=== PATIENT | male | born 1970 | race African-American/Black ===

== ENCOUNTER 2020-12-24 14:09 | Outpatient (REF) | payer MEDICAID, SELFPAY ==
--- NOTE | ~2020-12-24 | FL_ITS ---
EXAMINATION: Modified BARIUM SWALLOW CLINICAL INFORMATION: Aspiration. Question esophageal dysfunction. COMPARISON: None TECHNIQUE: Routine modified barium swallow was performed on the left RIBS fluoroscopy with patient sitting in a chair and various consistencies of barium given by the speech therapist. FINDINGS: On oral administration thin and thick barium and honey consistency barium there is andie laryngeal penetration or aspiration. There is moderate retention of barium liquids in the valleculae and pyriform sinuses. There are better results following oral administration of barium coated chicken as solid food with no aspiration seen. FLUOROSCOPY TIME: 3.9 minutes DOSE AREA PRODUCT: 3.449 uGy-m2 (microgray-meter squared) FL/FL barium swallow modified IMPRESSION: Andie laryngeal penetration or aspiration following oral administration of thin, thick barium and honey consistency barium. The results were visualized with solid them coated chicken with no aspiration seen.
--- NOTE | 2020-12-24 17:01 | MHC.SLORD ---
Speech Language Pathology Order Status: MBSS completed. Evidence of aspiration on thin liquid, honey thick liquid, and pureed solid. METAL LEAF LAYER called and spoke with RN from [facility] unit where patient resides. Staff confirmed that they had received written MBSS findings from today. Per staff, MD will want patient to work with METAL LEAF LAYER at [facility]. Full MBSS report to be faxed to [phone]. Fax number confirmed by [facility] staff.
--- NOTE | 2020-12-25 17:09 | MHC.SL.IMP ---
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 He was accompanied by a staff member from [facility]. WET AND DRY SUGAR BIN OPERATOR was unable to obtain background information from the patient due to potentially reduced cognition. Background information was derived from previous MD notes. Patient is reportedly on CHOPPED meat (NDD3) and NECTAR THICK liquids at baseline per MD note. He is provided with assistance cutting items as needed. MBSS was ordered to rule in/out aspiration and provide further recommendations. Oral Motor Exam Mouth Occlusion: Normal Tongue Size: Normal Tongue Excursion Description: Incomplete Is patient able to manage secretions?: Yes Food and Liquid Trials: Oral Impairment: Lip Closure: Did not test Oral Impairment: Tongue Control During Bolus Hold: 2=Posterior escape of less than half of bolus Oral Impairment: Bolus Preparation/Mastication: 1=Slow prolonged chewing/mashing with complete re-collection Oral Impairment: Bolus Transport/Lingual Motion: 3=Repetitive/disorganized tongue motion Oral Impairment: Oral Residue: 2=Residue collection on oral structures Oral Impairment:Initiation of Pharyngeal Swallow: 3=Bolus head in pyriforms Pharyngeal Impairment: Soft Palate Elevation: 0=No bolus between soft palate (SP)/pharyngeal wall (PW) Pharyngeal Impairment: Laryngeal Elevation: 1=Partial thyroid cartilage/arytenoids to epiglottic petiole movement Pharyngeal Impairment: Anterior Hyoid Excursion: 1=Partial anterior movement Pharyngeal Impairment: Epiglottic Movement: 2=No inversion Pharyngeal Impairment: Laryngeal Vestibular Closure:: 1=Incomplete: narrow column air/contrast in laryngeal vestibule Pharyngeal Impairment: Pharyngeal Stripping Wave: 2=Absent Pharyngeal Impairment: Pharyngeal Contraction: Did not test Pharyngeal Impairment: Pharyngoesophageal Segment Openin=Partial distention/partial duration: partial obstruction of flow Pharyngeal Impairment: Tongue Base (TB) Retraction: 3=Wide column of contrast/air between TB and posterior PW Pharyngeal Impairment: Pharyngeal Residue: 3=Majority of contrast within or on pharyngeal structures Pharyngeal Impairment: Esophageal Clearance Upright Position: Did not test Impressions and Recommendations Clinical Observations: OBJECTIVE: Time-out: performed at 02:45 Evaluation Start: 02:30; Stop: 02:40 Patient Positioning: Seated 70-90 degrees Viewing Planes: LATERAL ONLY Contrast: MBSImP? Standardized Protocol using commercially prepared, standardized Barium viscosities, including: Varibar? THIN LIQUID (40% w/v, <15 cps) , Varibar? THIN HONEY (40% w/v, <800-1800 cps) [facility] [id number] [facility] Results: Lip closure for intraoral bolus containment could not be assessed due to logistical reasons not related to physiologic impairment. Tongue control during bolus hold resulted in posterior escape of less than half of the bolus. Bolus preparation and mastication resulted in slow, prolonged chewing/mashing but with complete re-collection. Bolus transport/lingual motion was with repetitive/disorganized motion of the tongue. Oral residue was a collection on oral structures. Initiation of the pharyngeal swallow occurred when the bolus head was in the pyriform sinuses. Soft palate elevation resulted in no bolus between the soft palate and the pharyngeal wall. Laryngeal elevation was decreased, with partial superior movement of the thyroid cartilage/partial approximation of the arytenoids to the epiglottic petiole. Anterior hyoid excursion demonstrated partial anterior movement. Epiglottic movement resulted in no inversion. Laryngeal vestibular closure was incomplete, with a narrow column of air/contrast noted within the laryngeal vestibule at the height of the swallow. Pharyngeal stripping wave was absent. Pharyngeal contraction could not be determined due to logistical reasons not related to physiologic impairment. Pharyngoesophageal segment opening demonstrated partial distension/partial duration, with partial obstruction of bolus flow. Tongue base retraction allowed a wide column of contrast or air between the retracted tongue base and the posterior pharyngeal wall. Pharyngeal residue was the majority of contrast within or on pharyngeal structures. Esophageal clearance in the upright position could not be assessed due to logistical reasons not related to physiologic impairment. Oral Impairment Score: 11 (absence of score, component 1) Pharyngeal Impairment Score: 14 (absence of score, component 13) Esophageal Impairment Score: --- (absence of score, component 17) Laryngeal Penetration and Aspiration: Aspiration was observed in today's study. Pureed solid; Honey-thick liquid; Thin liquid entered the airway, passed below the vocal folds, and no effort was made to eject. ASSESSMENT: This exam was conducted by a radiologist and speech-language pathologist and accompanied by garbage person clinician. Patient was seated in chair upright at optimal 90 degree position for lateral view only. Patient fed himself when handed food items. Patient trialed the following liquid and solid consistencies: -5 mL thin liquid barium -cup sip thin liquid barium -teaspoon sip honey thick liquid barium -pureed solid (applesauce mixed with barium paste) -ground solid (chicken salad mixed with barium paste) Patient presents with severe oropharyngeal dysphagia, characterized by impairments in the following components of swallow physiology: ORAL PHASE: -Premature posterior escape of less than 50% of bolus prior to initiation of pharyngeal swallow trigger -Repetitive and disorganized posterior tongue movements -Slow, prolonged mastication -Mild to moderate oral residue -Delayed pharyngeal swallow trigger when bolus head reached pyriforms PHARYNGEAL PHASE: -Partial superior movement of thyroid cartilage/ partial approximation of arytenoids to epiglottic petiole with partial anterior hyoid movement -No epiglottic inversion -Absent pharyngeal stripping wave -Partial distention/ partial duration/ partial obstruction of flow through PES -Reduced tongue base retraction -Significant pharyngeal residue on tongue base and in valleculae and pyriform sinuses Patient took first sip of thin liquid from cup. Noted repetitive posterior movement of tongue, but patient did not propel bolus to initiate pharyngeal swallow. Patient spit bolus back into cup. Patient was given another cup of thin liquid and cued to swallow. Evidence of aspiration after the swallow on residual from pyriform sinus when drinking thin liquid from cup. Evidence of aspiration during the swallow on teaspoon sip of honey thick liquid. Moderate pharyngeal retention in valleculae and pyriforms when drinking liquids. Evidence of aspiration during the swallow with teaspoon bite of applesauce, a pureed solid. No cough. Moderate pharyngeal retention in valleculae and pyriforms with bite of pureed solid. Episodes of aspiration were silent, as patient made no effort to expectorate material from airway. No evidence of aspiration or penetration with ground solid. Note significant retention in vallecular space with ground solid, putting patient at risk for aspiration on residuals. Patient was cued for multiple swallows which reduced but did not clear residue. Patient trialed chin tuck and head turn to right and left sides, which had minimal effect. Patient exhibited difficulty following commands throughout this study. The following compensatory strategies appear to have had a negative impact on swallowing function: Additional Swallow(s) per Bolus increased Aspiration Liquid Intake Recommendation: NPO Liquid Intake Strategies: Dietary Recommendations: NPO Medication Administration: NPO Recommended Treatments: Base of Tongue Exercises Pharyngeal Resistive Exer Compens. Strategy Educat. Vocal Cord Adduction Exer Recommendation for Speech Therapy: Outpatient Speech Therapy Speech Therapy through [facility] Speech [facility] through Rehab Facility Modified Barium Swallow Study - Outpatient Intake Recommendations: Route: NPO/Alternate Route Post-Study Functional Oral Intake Scale (FOIS): 1- No oral intake Evidence of silent aspiration. Safest recommendation would be for NPO status at this time as patient is at high risk of aspiration based on observations made during this study. However, ultimate decision for nutritional intake lies with patient?s care team with consideration of totality of patient. Recommend consult with G.I. and nutrition to provide additional support/assessment of most appropriate means of nutrition for this patient. Patient is recommended weekly speech therapy visits at his nursing facility for dysphagia. Recommend repeat MBSS 8-12 weeks post-treatment. Suggested Referrals: The patient might benefit from a referral to: Gastroenterology Indication for Referral: Evidence of aspiration on this exam with solids and liquids. Nutrition Services Indication for Referral: Evidence of aspiration on this exam with solids and liquids. Therapy Recommendations: Therapy will be initiated Prognosis for Improvement: The prognosis for the patient to meet nutritional needs by mouth is poor based on degree of impairment, stimulability for treatment. Timeline to reassess: 3 months Purchasing And Fiscal Clerk Goals: ? The patient will tolerate the least restrictive diet with a safe/efficient swallow to maintain adequate nutrition and hydration. ? The patient will demonstrate improved swallowing function via repeat clinical evaluation, videoendoscopy/videofluoroscopy and/or patient self-rating scores. ? The patient and/or family will participate in further education for swallowing goals. Short Term Goals: ? Independent Home Exercise - The patient will perform 10 repetitions of the Effortful Swallow, Jesusita Maneuver, Shaker Head Lifts, Cass Maneuver 3 times a day with 100% accuracy and moderate cuing as part of a home exercise program. ? Structured Therapy - The patient will demonstrate 100% accuracy and require moderate cuing in structured swallowing therapy with the WET AND DRY SUGAR BIN OPERATOR using the following exercises/therapy approaches and therapy assisted devices: Effortful Swallow, Jesusita Maneuver, Shaker Head Lifts, Cass Maneuver, . ? Education - The patient, caregiver, nurse will verbalize/demonstrate understanding of the results of this evaluation, the above recommendations, and the swallowing guidelines. Clinician - Supplemental, Miscellaneous Communication: It is important to note MBSS objective studies are snapshots in time and Patient function might vary with factors such as time of day or concomitant medical conditions. For this reason, the final treatment plan for this patient should rest with their medical care team. Additional recommendations should be considered with the totality of the Patient in mind. Thank for the opportunity to participate in the care of this patient. If you have any questions about the content of this report, please contact the [facility] at [facility]. Education: Education regarding findings from today's study and plans for therapy were provided to Patient and family/caregiver through Verbal Instruction, Written Instruction. Understanding was expressed by the Patient and family/caregiver. Insecticide Maker Clinician/Clinical Fellow: Yes: Kelsey Fermin Supervisory Statement: N/A Speech Language Pathologist: Paula Hassan M.A., [facility]-WET AND DRY SUGAR BIN OPERATOR
== END 2020-12-24 14:10 | disposition home or self-care (01) ==
LOC: HO.XRAY 14:09
PROVIDERS: Visit Provider Hospitalist
DX: R13.12 Dysphagia, oropharyngeal phase (principal)
CPT/HCPCS: 74230; 92611

== ENCOUNTER 2021-02-07 17:31 | Emergency (ER) | payer MEDICAID, SELFPAY ==
--- NOTE | ~2021-02-07 | XR_ITS ---
Examination: XR foot LT 2V, XR ankle LT min 3V Indication: pain dorsal aspect, fall Comparison: No pertinent prior studies are currently available for comparison. Technique: 3 views of the right ankle and 3 views of the right foot obtained Findings: Mild diffuse soft tissue swelling about the foot and ankle. Extensive chronic appearing changes are seen with bony sclerosis and ankylosis of many of the midfoot bones. Extensive bony deformities to the first through fifth toes in the fourth and fifth MTP joints. 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 There is a chronic healing fracture through the medial malleolus to distal tibial diaphysis with indistinct fracture line and chronic periosteal reaction in this location. This does not appear to be an acute injury. XR/XR ankle LT min 3V Impression: There are extensive chronic appearing changes as described above. I do not appreciate any acute superimposed fracture or dislocation. The changes likely reflect an underlying neuropathic joint as well as a chronic healing distal tibial fracture
--- NOTE | ~2021-02-07 | XR_ITS ---
Examination: XR foot LT 2V, XR ankle LT min 3V Indication: pain dorsal aspect, fall Comparison: No pertinent prior studies are currently available for comparison. Technique: 3 views of the right ankle and 3 views of the right foot obtained Findings: Mild diffuse soft tissue swelling about the foot and ankle. Extensive chronic appearing changes are seen with bony sclerosis and ankylosis of many of the midfoot bones. Extensive bony deformities to the first through fifth toes in the fourth and fifth MTP joints. 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 There is a chronic healing fracture through the medial malleolus to distal tibial diaphysis with indistinct fracture line and chronic periosteal reaction in this location. This does not appear to be an acute injury. XR/XR foot LT 2V Impression: There are extensive chronic appearing changes as described above. I do not appreciate any acute superimposed fracture or dislocation. The changes likely reflect an underlying neuropathic joint as well as a chronic healing distal tibial fracture
[2021-02-07 17:37] VITALS: BP 124/93; BP 140/90; PULSE 100; PULSE 105; RESP 16; TEMP 36.9; O2SAT 100; O2SAT 99; BMI 27.1
--- NOTE | 2021-02-07 18:28 | ED_ITS ---
HPI - Fall General Chief Complaint: Fall Stated Complaint: FALL TUESDAY W/ L ANKLE FX PER SNF Time Seen by Provider: 02/07/21 17:40 Source: patient and EMS Mode of arrival: EMS Limitations: other (Chronic traumatic brain injury) History of Present Illness HPI Narrative: Patient comes emergency room complaining of left ankle pain. According to [facility], patient has a left ankle fracture. Patient states that on a resident fell on the floor and patient tripped on top of him. According to the staff at [facility], patient had an x-ray done today which showed a fracture. Patient complaining of localized pain. Related Data Allergies Allergy/AdvReac Type Severity Reaction Status Date / Time No Known Allergies Allergy Unverified 12/20/19 19:39 [No Known Allergies*] Review of Systems Review of Systems: Constitutional : No Weight loss, No Fever, No Chills, No Night Sweats, No Fatigue, No Malaise ENT/Mouth : No Hearing loss, No Ear Pain, No Nasal Congestion, No Sinus Pain, No Hoarseness, No sore throat, No Rhinorrhea, No Swallowing Difficulty Eyes: No Eye Pain, No Swelling, No Redness, No Foreign Body, No Discharge, No Vision Changes Cardiovascular : No Chest Pain, No SOB, No Dyspnea on Exertion, No Orthopnea, No Edema, No Palpitations Respiratory : No Cough, No Sputum, No Wheezing, No Smoke Exposure, No Dyspnea Gastrointestinal : No Nausea, No Vomiting, No Diarrhea, No Constipation, No abdominal Pain, No Hematochezia, No Melena Genitourinary : no irregular bleeding, No Dysuria, No Urinary Frequency, No Hematuria, No Urinary Incontinence, No Urgency, No Flank Pain, No Urinary Flow Changes, No Hesitancy Musculoskeletal : Complaining of left ankle pain, No Myalgias, No Joint Swelling Skin : No Skin Lesions, No rash Neuro : No Weakness, No Numbness, No Paresthesias, No Loss of Consciousness, No Dizziness, No Headache Psych : No Anxiety/Panic, No Depression, No SI/HI/AH/VH, No Social Issues, Heme/Lymph: No Bruising, No Bleeding,No Lymphadenopathy Endocrine : No Polyuria, No Polydipsia, No Temperature Intolerance PMFSH Past Medical History Medical History Anoxic brain damage Diabetes Dysphagia Encephalopathy Hyperlipemia Social History Social History Alcohol intake: never Patient Tobacco Use Status: Former Tobacco user Use of substances other than those prescribed or required for medical reasons: No Advance Directives: No Advance Directives Information Provided: No Physical Exam Vital Signs: Vital Signs: Last Vital Signs Temp 98.5 F 02/07/21 17:37 Pulse 103 H 02/07/21 19:08 Resp 20 02/07/21 19:08 BP 155/86 H 02/07/21 19:08 Pulse Ox 97 02/07/21 19:08 Body Mass Index 27.1 Const: Other: Appearance: Alert. Oriented X3. No acute distress. Eyes: Pupils equal, round and reactive to light. ENT: Pharynx normal. Neck: Normal inspection. Neck supple. No lymph nodes noted. No crepitus CVS: Normal heart rate and rhythm. Pulses normal. Normal S1 and S2 Respiratory: No respiratory distress. Breath sounds normal. No Wheezing. No rales Abdomen: Soft and nontender. No rigidity. No distention. good BS x4 Skin: Skin warm and dry. Normal skin color. Normal skin turgor. Extremities: No lower extremity edema. Significant deformities of toes, chronic. Pain to palpation over the ankle Neuro: Oriented X 3. No motor deficit. No sensory deficit. Moving all extermities. No slurred speech. Course Course Course Narrative: I discussed with the patient that he does not have an acute fracture. Seems the patient has an old fracture. Patient states it hurts from his walks, patient was provided with a posterior splint, instructed to follow-up with orthopedics. MDM - Fall Imaging Data Ankle x-ray: Radiologist's impression: Findings: Mild diffuse soft tissue swelling about the foot and ankle. Extensive chronic appearing changes are seen with bony sclerosis and ankylosis of many of the midfoot bones. Extensive bony deformities to the first through fifth toes in the fourth and fifth MTP joints. 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 There is a chronic healing fracture through the medial malleolus to distal tibial diaphysis with indistinct fracture line and chronic periosteal reaction in this location. This does not appear to be an acute injury. XR/XR foot LT 2V Impression: There are extensive chronic appearing changes as described above. I do not appreciate any acute superimposed fracture or dislocation. The changes likely reflect an underlying neuropathic joint as well as a chronic healing distal tibial fracture Discharge Plan Discharge Clinical Impression: Acute foot pain Patient Disposition: Home, Self-Care Instructions: Arthralgia (ED) Additional Instructions: Please follow-up with your primary care physician tomorrow. If you have any worsening or new symptoms, please return to the emergency room or call [phone] Referrals: Olivia Cotton PA-C [Physician Health Safety Specialist] - 2 days
[2021-02-07] MEDS: Acetaminophen 325 MG TABLET 650 MG PO (19:03)
--- NOTE | 2021-02-07 19:07 | PC.NURSE ---
patient medicated for pain per order
[2021-02-07 19:08] VITALS: BP 155/86; PULSE 103; RESP 20; O2SAT 97
--- NOTE | 2021-02-07 20:07 | PC.NURSE ---
report called to [facility]
--- NOTE | 2021-02-07 20:07 | PC.NURSE ---
tech splinting patients lle
[2021-02-07 22:00] VITALS: BP 131/65; PULSE 102; RESP 18; TEMP 36.4; O2SAT 98
--- NOTE | 2021-02-07 22:38 | PC.NURSE ---
patient alert to person/place, lle splint intact, + csm, pt awaiting transport back to [facility]- as previously noted report was called to the facility earlier, vitals stable, pt uses 1 pk of thick it for liquids, will continue to monitor.
== END 2021-02-07 23:58 | disposition home or self-care (01) ==
PROVIDERS: Emergency Provider Emergency Medicine
DX: M25.572 Pain in left ankle and joints of left foot (principal); Z87.891 Personal history of nicotine dependence
CPT/HCPCS: 73610; 73620; 99284

== ENCOUNTER 2021-03-02 15:33 | Outpatient (REF) | payer MEDICAID, SELFPAY ==
--- NOTE | ~2021-03-02 | MR_ITS ---
EXAMINATION: MRI ANKLE WITHOUT CONTRAST, LEFT CLINICAL INFORMATION: Lateral left ankle pain. COMPARISON: Left foot and ankle radiographs dated 02/07/2021. TECHNIQUE: Multisequence MR imaging of the left ankle was obtained without contrast on a high-field strength scanner. FINDINGS: Evaluation limited secondary to patient motion. BONE AND ARTICULAR CARTILAGE: There is a sagittally oriented fracture through the distal tibia which contacts the central aspect of the tibial plafond articular surface. The resultant fracture gap measures up to 0.4 cm in AP dimension. There is prominent adjacent soft tissue edema. The fracture line extends proximally beyond the imaged field of view. There is associated periosteal reaction without significant new bone/callus formation. This has the appearance of an acute/subacute fracture. Tibiotalar articular cartilage thinning with tiny marginal osteophytes. No talar osteochondral lesion. Chronic fusion of the cuneonavicular joints without associated marrow edema. Mild joint space narrowing with small marginal osteophytes at the talonavicular, calcaneocuboid, and tarsometatarsal joints. ACHILLES TENDON: Normal. OTHER TENDONS: Intact. LIGAMENTS: Attenuation of the anterior talofibular ligament as well as abnormal signal within the posterior talofibular ligament and calcaneofibular ligament. Attenuation and abnormal signal of the deltoid ligament. Findings are consistent with remote sprain/partial tears. JOINT FLUID AND SOFT TISSUES: Moderate tibiotalar joint effusion with adjacent soft tissue edema. PLANTAR FASCIA: Normal. SINUS TARSI AND TARSAL TUNNEL: Normal. MR/MR ankle LT wo con IMPRESSION: 1. Acute/subacute fracture of the distal tibia in the sagittal plane which contacts the central aspect of the tibial plafond articular surface. Associated fracture gap measuring up to 0.4 cm in AP dimension. No significant cortical stepoff. Prominent adjacent marrow edema with mild periosteal reaction. The fracture extends proximally beyond the imaged field of view. 2. Mild tibiotalar osteoarthritis. Moderate joint effusion with adjacent soft tissue edema. 3. Chronic fusion of the cuneonavicular joints. Mild degenerative arthritis at the talonavicular, calcaneocuboid, and tarsometatarsal joints. 4. Remote sprains/partial tears of the deltoid, anterior talofibular, posterior talofibular, and calcaneofibular ligaments.
--- NOTE | ~2021-03-02 | XR_ITS ---
EXAMINATION: PRE-MRI SCREENING. CLINICAL INFORMATION: Previous brain surgery. COMPARISON: None TECHNIQUE: Skull to views, chest and abdomen one view each. FINDINGS: Skull: There is a large right frontal craniotomy with neelam holding the craniotomy flap in place. The paranasal sinuses and mastoid air cells are well-aerated. There is no scalp soft tissue abnormality. CHEST: The lungs are well-expanded and clear of acute process. The heart size and perivascular is normal. No gross bony abnormality seen. ABDOMEN: There is moderate stool seen throughout the colon without any significant distention. The small bowel loops are normal caliber. No organomegaly. No radiopaque calculi. No gross bony abnormality. XR/XR pre mri screening IMPRESSION: Right frontal craniotomy with neelam holding the craniotomy flap in place. Unremarkable chest exam. Unremarkable abdomen exam except for moderate constipation.
== END 2021-03-02 15:34 | disposition home or self-care (01) ==
LOC: HO.MRI 15:33
PROVIDERS: Visit Provider Hospitalist
DX: M25.572 Pain in left ankle and joints of left foot (principal)
CPT/HCPCS: 73721

== ENCOUNTER 2021-03-06 07:10 | Outpatient (REF) | payer MEDICAID, SELFPAY ==
--- NOTE | ~2021-03-06 | XR_ITS ---
EXAMINATION: XR ANKLE, LEFT CLINICAL INFORMATION: Pain COMPARISON: Previous x-ray 02/07/2021 and MRI of the ankle for 20 12/22/2020 TECHNIQUE: AP, lateral, and mortise views of the left ankle. FINDINGS: Oblique fracture of the distal tibia is still seen extending to the medial malleolus/medial ankle mortise. There is ossific some surrounding bony callus formation. This does not appear appreciably changed from 02/07/2021 exam. No other fracture is seen. The ankle mortise is otherwise normal. The bones are osteopenic. There are degenerative changes of the midfoot. There are small calcaneal spurs. XR/XR ankle LT min 3V IMPRESSION: No change in the oblique fracture of the left distal tibia extending to the medial ankle mortise.
== END 2021-03-06 07:11 | disposition home or self-care (01) ==
LOC: HO.HOSX 07:10
PROVIDERS: Visit Provider Physician Assistant
DX: S82.872D Displaced pilon fracture of left tibia, subsequent encounter for closed fracture with routine healing (principal); Z99.3 Dependence on wheelchair; X58.XXXD Exposure to other specified factors, subsequent encounter
CPT/HCPCS: 73610; 99202

== ENCOUNTER 2021-04-10 07:32 | Outpatient (REF) | payer MEDICAID, SELFPAY ==
--- NOTE | ~2021-04-10 | XR_ITS ---
EXAMINATION: XR ANKLE, LEFT CLINICAL INFORMATION: Follow-up fracture COMPARISON: Previous x-ray most recent March 2021 TECHNIQUE: AP, lateral, and mortise views of the left ankle. FINDINGS: The fracture of the distal tibia involving the posterior medial distal tibia extending to the medial ankle mortise/superior medial malleolus does not appear appreciably changed. Alignment is unchanged. Fracture line is still seen. There is periosteal reaction along the lateral distal tibial shaft that is unchanged. The bones are osteopenic. Soft tissues are unremarkable. XR/XR ankle LT min 3V IMPRESSION: No change in the distal tibial fracture from March 2021 exam.
== END 2021-04-10 07:33 | disposition home or self-care (01) ==
LOC: HO.HOSX 07:32
PROVIDERS: Visit Provider Physician Assistant
DX: S82.872D Displaced pilon fracture of left tibia, subsequent encounter for closed fracture with routine healing (principal)
CPT/HCPCS: 73610; 99212

== ENCOUNTER 2021-05-26 09:29 | Outpatient (REF) | payer MEDICAID, SELFPAY ==
--- NOTE | ~2021-05-26 | XR_ITS ---
EXAMINATION: XR ANKLE, LEFT CLINICAL INFORMATION: Distal tibial fracture. Follow-up. COMPARISON: Radiographs left ankle 04/10/2021, 03/06/2021 TECHNIQUE: AP, lateral, and mortise views of the left ankle. FINDINGS: There is a distal tibial fracture again noted extending to the articular surface. Alignment is stable. The fracture line is still visible although slightly less distinct suggesting some interval healing. The ankle mortise is symmetric. There is no acute fracture or destructive process. XR/XR ankle LT min 3V IMPRESSION: No change in alignment distal tibial fracture. Fracture line less distinct suggesting some interval healing.
== END 2021-05-26 09:30 | disposition home or self-care (01) ==
LOC: HO.HOSX 09:29
PROVIDERS: PCP Hospitalist; Visit Provider Physician Assistant
DX: S82.872D Displaced pilon fracture of left tibia, subsequent encounter for closed fracture with routine healing (principal)
CPT/HCPCS: 73610; 99212

== ENCOUNTER 2021-07-07 07:12 | Outpatient (REF) | payer MEDICAID, SELFPAY ==
--- NOTE | ~2021-07-07 | XR_ITS ---
EXAMINATION: XR ANKLE, LEFT CLINICAL INFORMATION: Pain in the ankle joints. COMPARISON: Left ankle 05/26/2021 TECHNIQUE: AP, lateral, and mortise views of the left ankle. FINDINGS: There is old healed distal tibial fracture with mild deformity. The fracture line is still visualized on lateral view No new fractures seen. Ankle mortise and subtalar joints are maintained normal. XR/XR ankle LT min 3V IMPRESSION: Slowly healing fracture distal tibia with mild deformity on AP view. The fracture line extending to ankle mortise is still visualized. There is diffuse osteopenia involving the tarsal bones. No major change from previous study 05/26/2021.
== END 2021-07-07 07:13 | disposition home or self-care (01) ==
LOC: HO.HOSX 07:12
PROVIDERS: Visit Provider Physician Assistant
DX: S82.872D Displaced pilon fracture of left tibia, subsequent encounter for closed fracture with routine healing (principal)
CPT/HCPCS: 73610; 99212

== ENCOUNTER 2021-08-18 07:16 | Outpatient (REF) | payer MEDICAID, SELFPAY ==
--- NOTE | ~2021-08-18 | XR_ITS ---
EXAMINATION: XR ANKLE, LEFT CLINICAL INFORMATION: Fracture COMPARISON: Previous x-ray most recent July 2021 TECHNIQUE: AP, lateral, and mortise views of the left ankle. FINDINGS: There is no change in the fracture of the distal tibial shaft extending to the ankle mortise. Fracture line is still seen. Findings are suggestive of nonunion. There are degenerative changes at the tibiotalar joint. There are degenerative changes in the midfoot. There are small calcaneal spurs. XR/XR ankle LT min 3V IMPRESSION: No change in the ununited fracture of the distal tibial shaft extending to the ankle mortise.
== END 2021-08-18 07:17 | disposition home or self-care (01) ==
LOC: HO.HOSX 07:16
PROVIDERS: Visit Provider Physician Assistant
DX: S82.872P Displaced pilon fracture of left tibia, subsequent encounter for closed fracture with malunion (principal)
CPT/HCPCS: 73610; 99212

== ENCOUNTER 2021-10-27 12:38 | Inpatient (IN) | payer MEDICAID, SELFPAY ==
--- NOTE | ~2021-10-27 | XR_ITS ---
EXAMINATION: XR FOOT, LEFT CLINICAL INFORMATION: Evaluate for osteomyelitis of the third toe COMPARISON: Left foot radiographs 02/07/2021 TECHNIQUE: AP, lateral, and oblique views of the left foot. FINDINGS: Assessment the toes is significantly limited limited due to flexion deformities/malalignment and osseous overlap. No gross osseous destructive change of the third distal phalanx, where visualized. There does appear to be extensive erosive changes at the IP joints and fourth and fifth MTP joints. Mild first MTP joint osteoarthritis. Joint space narrowing with subchondral sclerosis and small osteophytes the tarsometatarsal joints and ankylosis at the navicular cuneiform joints. Suspected fracture cleft through the tibial plafond redemonstrated. Small calcaneal spurs. XR/XR foot LT min 3V IMPRESSION: 1. Limited assessment for detection of osteomyelitis of the toes due to deformity of the toes a result osseous overlap. No obvious osseous destructive change or periosteal reaction. If high clinical concern for osteomyelitis, suggest MRI of the forefoot. 2. Extensive erosive changes in the forefoot and joint space narrowing and ankylosis in the midfoot. Correlate with history of chronic inflammatory arthropathy such as rheumatoid arthritis. 3. Chronic fracture cleft/deformity through the tibial plafond redemonstrated.
--- NOTE | ~2021-10-27 | US_ITS ---
EXAMINATION: NONINVASIVE ASSESSMENT OF THE ARTERIES OF BOTH LOWER EXTREMITIES INCLUDING PVR EXAM AND BILATERAL LOWER EXTREMITY DUPLEX CLINICAL INFORMATION: Nonhealing ulcer COMPARISON: None TECHNIQUE: Ankle pulse volume recordings, ankle pressure measurements and ankle brachial indices were obtained of the lower extremity arterial system bilaterally in addition to duplex Doppler techniques with wave form analysis and measurement of velocities in the common femoral, profunda femoral, superficial femoral, popliteal, tibial and peroneal arteries. The study was performed only at rest. FINDINGS: RIGHT LEG 1. Right Ankle-Brachial Index: 1.02 (higher of the DP/PT) >0.97-1.25 = normal - no significant arterial disease 0.75-0.96 = mild peripheral arterial disease 0.5-0.74 = moderate peripheral arterial disease <0.50 = severe peripheral arterial disease <0.30 = critical arterial disease 2. Segmental Pressures (mmHg): Brachial: 128 Ankle: PT 123, DP 131 3. PVR Waveforms: Ankle: Abnormal, irregular low amplitude 4. Direct Duplex: Common femoral artery: 95.6 cm/s, Multiphasic Profunda femoris artery: 118 cm/s, Multiphasic Superficial femoral artery (proximal): The proximal aspect of the vessel has a multiphasic waveform with peak systolic velocity 92.5 cm/s. There is a focal noncalcified plaque resulting in severe stenosis within the proximal SFA with peak systolic velocity 51.8 cm/s with multiphasic waveform. Beyond the stenosis peak systolic velocity is 144 cm/s with multiphasic waveform followed by a longer segment of noncalcified plaque resulting in elevated peak systolic velocity 177 cm/s and a monophasic waveform. Superficial femoral artery (mid): 167 cm/s, proximal to a site of heterogeneous plaque waveform is multiphasic. At and beyond the level of plaque the waveform is monophasic. Superficial femoral artery (distal): 106 cm/s, monophasic Proximal Popliteal artery: 50.6 cm/s, monophasic Distal popliteal artery: 59.5 cm/s, monophasic Mid posterior tibial artery: 53.3 cm/s, monophasic Peroneal artery: 36.1 cm/s, monophasic LEFT LE. Left Ankle-Brachial Index: 0.1 (higher of the DP/PT) >0.97-1.25 = normal - no significant arterial disease 0.75-0.96 = mild peripheral arterial disease 0.5-0.74 = moderate peripheral arterial disease <0.50 = severe peripheral arterial disease <0.30 = critical arterial disease 2. Segmental Pressures: Brachial: Not performed Ankle: PT not performed, DP 78 3. PVR Waveforms: Ankle: Abnormal, irregular, low amplitude 4. Direct Duplex: Common femoral artery: 265 cm/s at its upper portion, more distally peak systolic velocity 167 cm/s. Multiphasic Profunda femoris artery: 294 cm/s, monophasic Superficial femoral artery (proximal): 92.5 cm/s at its proximal aspect. Shortly beyond this level the proximal superficial femoral artery is occluded. Superficial femoral artery (mid): 62.6 cm/s, monophasic Superficial femoral artery (distal): 27.8 cm/s, monophasic Proximal Popliteal artery: 35.7 cm/s, monophasic Distal popliteal artery: 23.5 cm/s, monophasic Posterior tibial artery: Approximately 57 cm/s, monophasic waveform. Just beyond its origin the posterior tibial artery is occluded. Peroneal artery: 89.9 cm/s, monophasic. Not visualized distally. Incidental note of a mildly enlarged left inguinal lymph node which measures 4 x 1 x 1.9 cm which retains normal morphology. US/US arterial duplex LE BI IMPRESSION: Right CARMELLA 1.02, though there is an abnormal PVR waveform. There is multifocal disease within the superficial femoral artery including a focal severe stenosis at the proximal superficial femoral. Left CARMELLA 0.61. Uncertain the accuracy of CARMELLA as the left brachial pressure was not obtained. Abnormal PVR waveform. Elevated velocity of the proximal common femoral artery suggesting at least moderate disease. There is elevated velocity in monophasic waveform within the profunda femoris suggesting proximal stenosis. There is occlusion of the proximal superficial femoral artery with reconstitution distally. There is monophasic waveforms within the reconstituted femoral and popliteal. Beyond the proximal aspects, the posterior tibial and peroneal arteries are not well visualized and likely occluded.
[2021-10-27 12:43] VITALS: BP 134/36; PULSE 92; O2SAT 97
[2021-10-27 12:54] VITALS: BMI 25.8
[2021-10-27 12:56] VITALS: BP 146/88; PULSE 92; RESP 14; TEMP 35.5; O2SAT 99
--- NOTE | 2021-10-27 13:16 | ED_ITS ---
HPI - General Adult General Chief complaint: Wound/Laceration Stated complaint: l toe necrotic toe w/bone exposed from snf per ems Time Seen by Provider: 10/27/21 13:08 Source: patient Mode of arrival: ambulatory Limitations: other (Poor historian) History of Present Illness HPI narrative: Patient comes to the emergency room from [facility]. Patient was visited by the wound care nurse, the 3rd toe is necrotic. Patient is poor historian. Disoriented at baseline per the facility. Related Data Home Medications Medication Instructions Recorded Confirmed acetaminophen 325 mg tablet 650 mg PO Q6H PRN Pain 10/27/21 10/27/21 aluminum-mag hydroxide-simethicone 30 ml PO Q4H PRN Indigestion 10/27/21 10/27/21 200 mg-200 mg-20 mg/5 mL oral susp ascorbic acid (vitamin C) 500 mg 500 mg PO DAILY 10/27/21 10/27/21 tablet benztropine 0.5 mg tablet 0.5 mg PO BID 10/27/21 10/27/21 benztropine 1 mg tablet 1 mg PO BID 10/27/21 10/27/21 dapagliflozin 10 mg tablet 10 mg PO DAILY 10/27/21 10/27/21 (Farxiga) dulaglutide 1.5 mg/0.5 mL 1.5 mg subcut FR 10/27/21 10/27/21 subcutaneous pen injector (Trulicity) gemfibrozil 600 mg tablet 600 mg PO BID 10/27/21 10/27/21 haloperidol 0.5 mg tablet 0.5 mg PO BID 10/27/21 10/27/21 haloperidol 1 mg tablet 1 mg PO BID 10/27/21 10/27/21 insulin detemir U-100 100 unit/mL 45 unit subcut DAILY 10/27/21 10/27/21 (3 mL) subcutaneous pen (Levemir FlexTouch U-100 Insulin) insulin detemir U-100 100 unit/mL 15 unit subcut BEDTIME 10/27/21 10/27/21 subcutaneous solution (Levemir U-100 Insulin) insulin lispro 100 unit/mL 0 sliding scale dose subcut 10/27/21 10/27/21 subcutaneous solution (Humalog USEASDIRECTD U-100 Insulin) lactulose 10 gram/15 mL (15 mL) 90 ml PO TID 10/27/21 10/27/21 oral solution lanolin alcohols-mineral 1 appl topical BEDTIME 10/27/21 10/27/21 oil-w.petrolatum-ceresin topical cream (Minerin Creme topical) metformin 1,000 mg tablet 1,000 mg PO BID 10/27/21 10/27/21 miconazole nitrate 2 % topical 1 appl topical MOWEFR@2100 10/27/21 10/27/21 powder (Miconazorb AF) nystatin 100,000 unit/gram topical 1 appl topical Q8H PRN redened 10/27/21 10/27/21 powder areas propranolol 10 mg tablet 5 mg PO BID 10/27/21 10/27/21 rifaximin 550 mg tablet 550 mg PO BID 10/27/21 10/27/21 sennosides 8.6 mg tablet (senna) 8.6 mg PO Q24H PRN Constipation 10/27/21 10/27/21 simethicone 80 mg chewable tablet 160 mg PO BID 10/27/21 10/27/21 Allergies Allergy/AdvReac Type Severity Reaction Status Date / Time No Known Allergies Allergy Verified 07/07/21 09:53 [No Known Allergies*] Review of Systems Review of Systems: Yes Other (Poor historian and disoriented at baseline) [facility] Past Medical History Medical History Anoxic brain damage Diabetes Dysphagia Encephalopathy Hyperlipemia Social History Social History Alcohol intake: unknown Patient Tobacco Use Status: Former Tobacco user Smoked in Last 30 Days: No Use of substances other than those prescribed or required for medical reasons: Unknown Advance Directives: No Advance Directives Information Provided: No Physical Exam ED Vital Signs: Vital Signs - 24 hr 10/27/21 12:56 Temperature 95.9 F L Pulse Rate 92 Respiratory Rate 14 Blood Pressure 146/88 H Pulse Oximetry 99 Oxygen Delivery Method Room Air BMI result Body Mass Index 25.8 Const Other: Appearance: Alert. No acute distress. Eyes: Pupils equal, round and reactive to light. ENT: Pharynx normal. Neck: Normal inspection. Neck supple. No lymph nodes noted. No crepitus CVS: Normal heart rate and rhythm. Pulses normal. Normal S1 and S2 Respiratory: No respiratory distress. Breath sounds normal. No Wheezing. No rales Abdomen: Soft and nontender. No rigidity. No distention. Skin: Skin warm and dry. Her left toe is necrotic Extremities: No lower extremity edema. No Lacerations. No Rash Neuro: No motor deficit. No sensory deficit. Moving all extremities. No slurred speech. CN 2 through 12 grossly intact Psych: calm, cooperative, normal affect Course Course Course Narrative: Dr. Olmstead knows the patient very well. Patient is to be admitted. Chemistry is still pending. At this time, sepsis is not suspected. Patient is empirically being cover with vancomycin and Zosyn. Dr. Olmstead talk to Dr. Lee regarding patient. Patient will be admitted. It is possible that patient went will need an amputation Foot x-ray is suspicious for osteomyelitis. Radiology report is pending Of note, chemistries are being delayed because they are not being done at [facility], they are being done at [facility]. Chemistry pending. I discussed the patient with Dr. Olmstead, patient being admitted Medical Decision Making Lab Data Result diagrams: 10/27/21 14:22 10/27/21 14:12 Labs: Lab Results 10/27/21 10/27/21 Range/Units 13:54 14:22 WBC 8.9 (4.8-10.8) X10*3/uL RBC 5.31 (4.60-5.80) X10*6/uL Hgb 14.6 (14.0-18.0) g/dl Hct 46.7 (42.0-52.0) % MCV 87.9 (80.0-98.0) fL MCH 27.5 (27.0-33.0) pg MCHC 31.3 (31.0-36.0) g/dl RDW 12.7 (11.0-16.0) % Plt Count 342 (160-400) X10*3/uL MPV 10.4 (9.4-12.4) fL Immature Gran % (Auto) 0.3 (0.0-0.4) % Neut % (Auto) 69.5 (45-73) % Lymph % (Auto) 16.9 L (20-40) % [place] % (Auto) 10.5 (2-11) % Eos % (Auto) 2.4 (0-4) % Baso % (Auto) 0.4 (0-2) % Lymph # (Auto) 1.5 (1.2-4.9) X10*3/uL [place] # (Auto) 0.9 (0.1-1.2) X10*3/uL Eos # (Auto) 0.2 (0.0-0.4) X10*3/uL Baso # (Auto) 0.0 (0.0-0.2) X10*3/uL Abs Immat Gran (auto) 0.03 (0.00-0.03) X10*3/uL Absolute Neuts (auto) 6.2 (2.0-8.3) x10*3/uL Absolute Nucleated RBC 0.000 (0.0-0.012) X10*3/uL Nucleated RBC % (auto) 0.0 (0.0-0.2) /100WBC COVID-19 ([facility]) Negative (Negative) COVID-19 Clin Com See Note Discharge Plan Discharge Clinical Impression: Osteomyelitis of toe Patient Disposition: Admitted As Inpatient
--- NOTE | 2021-10-27 14:07 | PHA.MEDREC ---
Pharmacy Consult ? Medication Reconciliation Pharmacy has completed the medication reconciliation. Patient came from [facility] with a medication list. Mona Briscoe, NilsonD
[2021-10-27 14:17] LABS: COVID-19 Test Negative (Negative)
[2021-10-27 14:31] LABS: MANUAL DIFF FLAG NO
[2021-10-27 14:33] LABS: Basophils Percent Auto 0.4 % (0-2); Eosinophils Absolute Auto 0.2 X10*3/uL (0.0-0.4); Eosinophils Percent Auto 2.4 % (0-4); Hematocrit 46.7 % (42.0-52.0); Hemoglobin 14.6 g/dl (14.0-18.0); Imm Gran Abs Auto 0.03 X10*3/uL (0.00-0.03); Imm Gran Pct Auto 0.3 % (0.0-0.4); Lymphocytes Absolute Auto 1.5 X10*3/uL (1.2-4.9); Lymphocytes Percent Auto 16.9 % (20-40); Mean Corpuscular HGB Conc 31.3 g/dl (31.0-36.0); Mean Corpuscular Hemoglobin 27.5 pg (27.0-33.0); Mean Corpuscular Volume 87.9 fL (80.0-98.0); Mean Platelet Volume 10.4 fL (9.4-12.4); Monocytes Absolute Auto 0.9 X10*3/uL (0.1-1.2); Monocytes Percent Auto 10.5 % (2-11); Neutrophils Absolute Auto 6.2 x10*3/uL (2.0-8.3); Neutrophils Percent Auto 69.5 % (45-73); Platelet Count 342 X10*3/uL (160-400); Red Blood Count 5.31 X10*6/uL (4.60-5.80); Red Cell Distribution Width 12.7 % (11.0-16.0); White Blood Count 8.9 X10*3/uL (4.8-10.8)
[2021-10-27 15:39] LABS: Lactic Acid 2.1 mmol/L (0.5-2.0)
[2021-10-27] MEDS: 0.9 % Sodium Chloride 1,000 ML 999 ML IVCONT (15:45)
[2021-10-27] MEDS: Piperacillin Sodium/Tazobactam 3.375 GM in 0.9 % Sodium Chloride 50 ML IV (15:48)
[2021-10-27 16:18] LABS: Reflex Lactate? Lactic Acid Added
[2021-10-27 16:20] LABS: Alanine Aminotransferase 10 U/L (0-40); Albumin Level 4.3 g/dL (3.5-5.0); Alkaline Phosphatase 90 U/L (39-117); Anion Gap 18 (12-20); Aspartate Amino Transferase 10 U/L (5-37); Bilirubin Direct < 0.2 mg/dL (0.0-0.5); Bilirubin Total 0.3 mg/dL (0.0-1.0); Blood Urea Nitrogen 11 mg/dL (9-16); C Reactive Protein 10.98 mg/dL (< or = 0.50); Calcium 9.5 mg/dL (8.4-10.2); Carbon Dioxide 23 mmol/L (22-29); Chloride 103 mmol/L (96-108); Creatinine Clr Calc Pharmacy 131.6; Estimated Glomerular Filt Rate > 60; Glucose Random 79 mg/dL (60-115); Potassium 4.5 mmol/L (3.3-5.1); Sodium 139 mmol/L (135-145); Total Protein 7.7 g/dL (6.5-8.0)
[2021-10-27 16:27] VITALS: BP 155/72; PULSE 101; RESP 17; O2SAT 98
[2021-10-27 17:46] LABS: ~Lactic Acid-LAB USE ONLY 1.8 mmol/L (0.5-2.0)
--- NOTE | 2021-10-27 17:59 | PC.NURSE ---
20G placed left AC, vanco running @ 260ml/hr, ivf running.
--- NOTE | 2021-10-27 18:36 | PM.IMHP ---
History of Present Illness Date of Service: 10/27/21 Chief Complaint: infected toe 51-year-old male presents to the emergency department from [facility] with a necrotic left 3rd toe. Patient can be resistive to care [facility] and with the wound nurse saw him today found to be necrotic and sent to the ER. In the emergency room limited assessment for detection of osteo however though highly suspicious. Patient will be admitted for further workup vascular consult Review of Systems Review of Systems: Unable to obtain secondary to dementia [facility] Medical History (Updated 10/27/21 @ 18:42 by Apolinar Olmstead DO) Anoxic brain damage Diabetes Dysphagia Encephalopathy Hyperlipemia Social History Alcohol intake: unknown Patient Tobacco Use Status: Former Tobacco user Smoked in Last 30 Days: No Use of substances other than those prescribed or required for medical reasons: Unknown Advance Directives: No Advance Directives Information Provided: No Meds Allergies Allergy/AdvReac Type Severity Reaction Status Date / Time No Known Allergies Allergy Verified 07/07/21 09:53 [No Known Allergies*] Active Medications: Current Medications Acetaminophen (Acetaminophen 325 Mg Tablet) 650 mg PO Q6H PRN PRN Reason: Pain, Mild (Pain Scale 1-3) Al Hydroxide/Mg Hydroxide (Magnesium Hydrox/Alum Hydrox 30 Ml Oral.Susp) 30 ml PO Q4H PRN PRN Reason: Indigestion Ascorbic Acid (Ascorbic Acid 500 Mg Tablet) 500 mg PO DAILY TIM Benztropine Mesylate (Benztropine Mesylate 0.5 Mg Tablet) 0.5 mg PO BID TIM Benztropine Mesylate (Benztropine Mesylate 1 Mg Tablet) 1 mg PO BID TIM Enoxaparin Sodium (Enoxaparin Sodium 40 Mg/0.4 Ml Syringe) 40 mg SUBCUT Q24H TIM Gemfibrozil (Gemfibrozil 600 Mg Tablet) 600 mg PO BID TIM Haloperidol (Haloperidol 0.5 Mg Tablet) 0.5 mg PO BID TIM Haloperidol (Haloperidol 1 Mg Tablet) 1 mg PO BID TIM Piperacillin Sod/Tazobactam (Sod 4.5 gm/ Sodium Chloride) 100 mls @ 200 mls/hr IV Q6H TIM Insulin Glargine (Insulin Glargine,Hum.Rec.Anlog 100 Unit/Ml 10 Ml Vial) 31 unit SUBCUT DAILY [facility] Insulin Glargine (Insulin Glargine,Hum.Rec.Anlog 100 Unit/Ml 10 Ml Vial) 10 unit SUBCUT BEDTIME [facility] Insulin Human Lispro (Insulin Lispro 100 Unit/Ml 3 Ml Vial) 0 unit SUBCUT QIDACHS [facility]; Protocol Lactulose (Lactulose 20 Gm/30 Ml Solution) 60 gm PO TID [facility] Metformin HCl (Metformin Hcl 1,000 Mg Tablet) 1,000 mg PO BIDWM [facility] Non-Formulary Medication (Dapagliflozin [Farxiga]) 10 mg PO DAILY [facility] Ondansetron HCl (Ondansetron Hcl 4 Mg/2 Ml Vial) 4 mg IVPUSH Q8H PRN PRN Reason: Nausea and Vomiting Oxycodone HCl (Oxycodone Hcl Immed Release 5 Mg Tablet) 5 mg PO Q6H PRN PRN Reason: Pain, Severe (Pain Scale 7-10) Pharmacy Consult (Consult Rx Perform Med Rec) 1 each MISCELLANE ONCE PRN PRN Reason: Consult order Pharmacy Consult (Consult Rx Vancomycin Dosing) 1 each MISCELLANE DAILY PRN PRN Reason: Consult order Pharmacy Consult (Consult Rx Perform Med Rec) 1 each MISCELLANE ONCE PRN PRN Reason: Consult order Pharmacy Consult (Consult Rx Vancomycin Dosing) 1 each MISCELLANE DAILY PRN PRN Reason: Consult order Propranolol HCl (Propranolol Hcl 10 Mg Tablet) 5 mg PO BID [facility]; Protocol Rifaximin (Rifaximin 550 Mg Tablet) 550 mg PO BID [facility] Senna (Sennosides 8.6 Mg Tablet) 8.6 mg PO Q24H PRN PRN Reason: Constipation Simethicone (Simethicone 80 Mg Tab.Chew) 160 mg PO BID [facility] Sodium Chloride (0.9 % Sodium Chloride Flush 3 Ml Syringe) 3 ml IVFLUSH QSHIFT [facility] Home Medications Medication Instructions Recorded Confirmed Last Taken Type acetaminophen 325 mg tablet 650 mg PO Q6H PRN Pain 10/27/21 10/27/21 Unknown History aluminum-mag hydroxide-simethicone 30 ml PO Q4H PRN Indigestion 10/27/21 10/27/21 Unknown History 200 mg-200 mg-20 mg/5 mL oral susp ascorbic acid (vitamin C) 500 mg 500 mg PO DAILY 10/27/21 10/27/21 Unknown History tablet benztropine 0.5 mg tablet 0.5 mg PO BID 10/27/21 10/27/21 Unknown History benztropine 1 mg tablet 1 mg PO BID 10/27/21 10/27/21 Unknown History dapagliflozin 10 mg tablet 10 mg PO DAILY 10/27/21 10/27/21 Unknown History ([facility]) dulaglutide 1.5 mg/0.5 mL 1.5 mg subcut FR 10/27/21 10/27/21 Unknown History [facility] gemfibrozil 600 mg tablet 600 mg PO BID 10/27/21 10/27/21 Unknown History haloperidol 0.5 mg tablet 0.5 mg PO BID 10/27/21 10/27/21 Unknown History haloperidol 1 mg tablet 1 mg PO BID 10/27/21 10/27/21 Unknown History insulin detemir U-100 100 unit/mL 45 unit subcut DAILY 10/27/21 10/27/21 Unknown History (3 mL) subcutaneous pen (Levemir FlexTouch U-100 Insulin) insulin detemir U-100 100 unit/mL 15 unit subcut BEDTIME 10/27/21 10/27/21 Unknown History subcutaneous solution (Levemir U-100 Insulin) insulin lispro 100 unit/mL 0 sliding scale dose subcut 10/27/21 10/27/21 Unknown History subcutaneous solution (Humalog USEASDIRECTD U-100 Insulin) lactulose 10 gram/15 mL (15 mL) 90 ml PO TID 10/27/21 10/27/21 Unknown History oral solution lanolin alcohols-mineral 1 appl topical BEDTIME 10/27/21 10/27/21 Unknown History oil-w.petrolatum-ceresin topical cream (Minerin Creme topical) metformin 1,000 mg tablet 1,000 mg PO BID 10/27/21 10/27/21 Unknown History miconazole nitrate 2 % topical 1 appl topical MOWEFR@2100 10/27/21 10/27/21 Unknown History powder (Miconazorb AF) nystatin 100,000 unit/gram topical 1 appl topical Q8H PRN redened 10/27/21 10/27/21 Unknown History powder areas propranolol 10 mg tablet 5 mg PO BID 10/27/21 10/27/21 Unknown History rifaximin 550 mg tablet 550 mg PO BID 10/27/21 10/27/21 Unknown History sennosides 8.6 mg tablet (senna) 8.6 mg PO Q24H PRN Constipation 10/27/21 10/27/21 Unknown History simethicone 80 mg chewable tablet 160 mg PO BID 10/27/21 10/27/21 Unknown History Physical Exam Vital Signs and Narrative: Vital Signs: Last Vital Signs Temp 95.9 F L 10/27/21 12:56 Pulse 101 H 10/27/21 16:27 Resp 17 10/27/21 16:27 BP 155/72 H 10/27/21 16:27 Pulse Ox 98 10/27/21 16:27 O2 Del Method 10/27/21 16:27 BMI result Body Mass Index 25.8 Const: Other: Awake confused at baseline Resp: Other: Clear to auscultation bilaterally no rales rhonchi or wheezes Cardio: Other: No S4; positive S1-S2; no S3 murmurs rubs or gallops GI: Other: Soft nontender nondistended normoactive bowel sounds Extrem: Other: See admission photo for details Results Labs CBC and Chem 7: 10/27/21 14:22 10/27/21 14:12 Labs: Laboratory Results - last 24 hr 10/27/21 10/27/21 10/27/21 13:54 14:12 14:12 MCV MCH MCHC RDW Plt Count MPV Immature Gran % (Auto) Neut % (Auto) Lymph % (Auto) [place] % (Auto) Eos % (Auto) Baso % (Auto) Lymph # (Auto) [place] # (Auto) Eos # (Auto) Baso # (Auto) Abs Immat Gran (auto) Absolute Neuts (auto) Absolute Nucleated RBC Nucleated RBC % (auto) Anion Gap 18 Estim Creat Clear Calc 131.6 Estimated GFR > 60 Random Glucose 79 Lactic Acid 2.1 H* Lactic Acid F/U @ 2Hr Calcium 9.5 Total Bilirubin 0.3 Direct Bilirubin < 0.2 AST 10 ALT 10 Alkaline Phosphatase 90 C-Reactive Protein 10.98 H Total Protein 7.7 Albumin 4.3 COVID-19 ([facility]) Negative COVID-19 Clin Com See Note 10/27/21 10/27/21 14:22 17:29 MCV 87.9 MCH 27.5 MCHC 31.3 RDW 12.7 Plt Count 342 MPV 10.4 Immature Gran % (Auto) 0.3 Neut % (Auto) 69.5 Lymph % (Auto) 16.9 L [place] % (Auto) 10.5 Eos % (Auto) 2.4 Baso % (Auto) 0.4 Lymph # (Auto) 1.5 [place] # (Auto) 0.9 Eos # (Auto) 0.2 Baso # (Auto) 0.0 Abs Immat Gran (auto) 0.03 Absolute Neuts (auto) 6.2 Absolute Nucleated RBC 0.000 Nucleated RBC % (auto) 0.0 Anion Gap Estim Creat Clear Calc Estimated GFR Random Glucose Lactic Acid Lactic Acid F/U @ 2Hr 1.8 Calcium Total Bilirubin Direct Bilirubin AST ALT Alkaline Phosphatase C-Reactive Protein Total Protein Albumin COVID-19 ([facility]) COVID-19 Clin Com Imaging Radiologist's Impressions: Impressions Foot X-Ray 10/27/21 15:00 IMPRESSION: 1. Limited assessment for detection of osteomyelitis of the toes due to deformity of the toes a result osseous overlap. No obvious osseous destructive change or periosteal reaction. If high clinical concern for osteomyelitis, suggest MRI of the forefoot. 2. Extensive erosive changes in the forefoot and joint space narrowing and ankylosis in the midfoot. Correlate with history of chronic inflammatory arthropathy such as rheumatoid arthritis. 3. Chronic fracture cleft/deformity through the tibial plafond redemonstrated. Assessment and Plan (1) Osteomyelitis of toe: Status: Acute (2) Anoxic brain damage: Status: Acute (3) Diabetes: Status: Acute (4) Encephalopathy: Status: Acute Plan 51[facility]. X-rays inconclusive for osteomyelitis however highly suggestive. 1. Osteomyelitis -vancomycin/Zosyn (1) -MRI in a.m. to fully evaluate bony structures -vascular consult in a.m. -will likely need PICC line if MRI findings confirm osteomyelitis 2. Anoxic brain injury -continue all outpatient therapies as per [facility] -adjust as clinically indicated 3. Diabetes type 2 -will continue outpatient therapies -cover with Lispro correctional scale -adjust as indicated 4. Encephalopathy -continue rifimixan/lactulose as per [facility] Full code Lovenox Patient will require 2 midnights going forward for IV antibiotics and confirmation of osteomyelitis by MRI. This cannot be achieved in the lesser acute setting Quality Stroke Does the patient have a stroke diagnosis?: No VTE Prior VTE?: No VTE Risk Level:: Medical - moderate - high VTE Device Contraindication: Treatment Not Indicated VTE Drug Contraindication: N/A - Med Ordered
--- NOTE | 2021-10-27 18:39 | PHA.PROG ---
Admission Date/Time: October 27, 2021 17:22 Indication: CELLULITIS/ POSSIBLE OSTEO Weight in k.647 kg Adjusted body weight in K.6 [place] body weight in K Obesity Dosing Indication % IBW: 1.11% Serum Creatinine - Last 168 Hours 10/27/21 14:12 Creatinine 0.67 Estimated CrCl and GFR - Last 168 Hours 10/27/21 14:12 Estim Creat Clear Calc 131.6 Estimated GFR > 60 Vancomycin Loading Dose: 2000MG Current Vancomycin Dosing Regimen: 1500MG q12 Vancomycin Monitoring using AUC goal of 400 - 600 range with trough as surrogate marker: 567 MG/L/HR Date and Time for next Vancomycin Level to be drawn: RANDOM 10/28 @ 1600 BEFORE THIRD DOSE Pharmacist Comments on Vancomycin Plan: LOADING DOSE WAS DOSED AT ABOUT 24MG/KG GIVEN THE POSSIBLILITY OF OSTEOMYELITIS. 2000MG LOADING DOSE GIVEN. PATIENT'S RENAL FUNCTION IS STABLE. THEREFORE, Q12 DOSING WAS CHOSEN. PREDICTED AUC 567 MG/L/HR, TROUGH 16.5 MG/L. GIVEN POSSIBLE OSTEO, AUC OF GREATER THAN 500 MG/L/HR IS FAVORABLE. RANDOM TO BE DONE BEFORE THE THIRD DOSE TO ASSESS EFFICACY VS SAFETY. Vancomycin dosing will take advantage of [employer] as a clinical decision support tool that uses Bayesian modeling to calculate individual patient's pharmacokinetic parameters and forecast the patient's drug concentration time course with the target goal AUC 24 range of 400 - 600 mg/L/hr.
[2021-10-27 18:55] LABS: Erythrocyte Sedimentation Rate 71 MM/HR (0-15)
[2021-10-27 22:03] LABS: Glucose, Whole Blood 172 mg/dL (60-115)
[2021-10-27 22:13] VITALS: BP 172/72; PULSE 94; RESP 16; TEMP 36.9; O2SAT 98
[2021-10-27] MEDS: Enoxaparin Sodium 40 MG/0.4 ML SYRINGE SUBCUT (22:53)
[2021-10-27] MEDS: Simethicone 80 MG TAB.CHEW 160 MG PO (22:54)
[2021-10-27] MEDS: Benztropine Mesylate 0.5 MG TABLET PO (22:55)
[2021-10-27] MEDS: Acetaminophen 325 MG TABLET 650 MG PO (22:55)
[2021-10-27] MEDS: HaloperidoL 1 MG TABLET PO (22:56)
[2021-10-27] MEDS: Benztropine Mesylate 1 MG TABLET PO (22:56)
[2021-10-27] MEDS: HaloperidoL 0.5 MG TABLET PO (22:56)
[2021-10-27] MEDS: Insulin Glargine,Hum.rec.anlog 100 UNIT/ML 10 ML VIAL 10 UNIT SUBCUT (22:57)
[2021-10-27] MEDS: Lactulose 20 GM/30 ML SOLUTION 60 GM PO (22:58)
[2021-10-27] MEDS: Piperacillin Sodium/Tazobactam 4.5 GM in 0.9 % Sodium Chloride 100 ML IV (22:58)
[2021-10-28] MEDS: Propranolol HCL 10 MG TABLET 5 MG PO ×3 (00:38→20:58)
[2021-10-28] MEDS: gemfibroziL 600 MG TABLET PO ×3 (00:39→20:57)
[2021-10-28] MEDS: rifAXIMin 550 MG TABLET PO ×3 (00:39→20:57)
--- NOTE | 2021-10-28 00:42 | PC.NURSE ---
pt medicated per provider order - RN drafting supervisor contacted for remainder of medication.
[2021-10-28] MEDS: Piperacillin Sodium/Tazobactam 4.5 GM in 0.9 % Sodium Chloride 100 ML IV ×3 (04:11→14:02)
[2021-10-28 04:52] LABS: MANUAL DIFF FLAG NO
[2021-10-28 04:57] LABS: Basophils Percent Auto 0.5 % (0-2); Eosinophils Absolute Auto 0.2 X10*3/uL (0.0-0.4); Eosinophils Percent Auto 2.6 % (0-4); Hematocrit 40.7 % (42.0-52.0); Hemoglobin 13.3 g/dl (14.0-18.0); Imm Gran Abs Auto 0.04 X10*3/uL (0.00-0.03); Imm Gran Pct Auto 0.5 % (0.0-0.4); Lymphocytes Absolute Auto 1.7 X10*3/uL (1.2-4.9); Lymphocytes Percent Auto 20.1 % (20-40); Mean Corpuscular HGB Conc 32.7 g/dl (31.0-36.0); Mean Corpuscular Hemoglobin 27.5 pg (27.0-33.0); Mean Corpuscular Volume 84.1 fL (80.0-98.0); Mean Platelet Volume 10.5 fL (9.4-12.4); Monocytes Absolute Auto 0.8 X10*3/uL (0.1-1.2); Monocytes Percent Auto 9.2 % (2-11); Neutrophils Absolute Auto 5.7 x10*3/uL (2.0-8.3); Neutrophils Percent Auto 67.1 % (45-73); Platelet Count 385 X10*3/uL (160-400); Red Blood Count 4.84 X10*6/uL (4.60-5.80); Red Cell Distribution Width 12.5 % (11.0-16.0); White Blood Count 8.5 X10*3/uL (4.8-10.8)
[2021-10-28 05:14] LABS: Alanine Aminotransferase 8 U/L (0-40); Alkaline Phosphatase 82 U/L (39-117); Anion Gap 14 (12-20); Aspartate Amino Transferase 8 U/L (5-37); Bilirubin Total 0.2 mg/dL (0.0-1.0); Blood Urea Nitrogen 15 mg/dL (9-16); Carbon Dioxide 21 mmol/L (22-29); Chloride 109 mmol/L (96-108); Estimated Glomerular Filt Rate > 60; Glucose Fasting 153 mg/dL (60-99); Potassium 4.2 mmol/L (3.3-5.1); Sodium 140 mmol/L (135-145); Total Protein 7.2 g/dL (6.5-8.0)
[2021-10-28 06:00] VITALS: BP 138/90; PULSE 91; RESP 17; TEMP 36.9; O2SAT 98
[2021-10-28 07:10] LABS: Glucose, Whole Blood 173 mg/dL (60-115)
[2021-10-28] MEDS: vancomycin HCL 1,500 MG in 0.9 % Sodium Chloride 500 ML 333.33 MG IV (07:12)
[2021-10-28] MEDS: Insulin Lispro 100 UNIT/ML 3 ML VIAL SUBCUT (07:18)
[2021-10-28 07:27] VITALS: BP 154/85; PULSE 96; RESP 16; O2SAT 99
[2021-10-28 09:43] VITALS: BP 160/91; PULSE 83; RESP 16; O2SAT 98
[2021-10-28] MEDS: Simethicone 80 MG TAB.CHEW 160 MG PO ×2 (09:44→20:57)
[2021-10-28] MEDS: Benztropine Mesylate 1 MG TABLET PO ×2 (09:44→20:57)
[2021-10-28] MEDS: HaloperidoL 0.5 MG TABLET PO ×2 (09:44→20:57)
[2021-10-28] MEDS: Ascorbic Acid 500 MG TABLET PO (09:44)
[2021-10-28] MEDS: Benztropine Mesylate 0.5 MG TABLET PO ×2 (09:44→20:57)
[2021-10-28] MEDS: metFORMIN HCl 1,000 MG TABLET 1000 MG PO (09:45)
[2021-10-28] MEDS: Lactulose 20 GM/30 ML SOLUTION 60 GM PO ×3 (09:45→20:57)
[2021-10-28] MEDS: Empagliflozin 10 MG TABLET PO (09:45)
[2021-10-28] MEDS: 0.9 % Sodium Chloride Flush 3 ML SYRINGE IVFLUSH ×2 (09:46→12:24)
[2021-10-28] MEDS: Insulin Glargine,Hum.rec.anlog 100 UNIT/ML 10 ML VIAL 31 UNIT SUBCUT (09:47)
[2021-10-28] MEDS: HaloperidoL 1 MG TABLET PO ×2 (09:48→20:57)
--- NOTE | 2021-10-28 11:18 | PC.NURSE ---
pt l 3rd toe is necrotic all other toes on l foot appears normal. aware.
--- NOTE | 2021-10-28 11:21 | P.PNIM_ITS ---
Subjective Subjective Date of Service: 10/28/21 Interval History: No acute issues overnight. Remains cooperative with care Review of Systems Unable to obtain secondary to dementia Physical Exam Vital Signs: Vital Signs: Last Vital Signs Temp 98.4 F 10/28/21 06:00 Pulse 83 10/28/21 09:43 Resp 16 10/28/21 09:43 BP 160/91 H 10/28/21 09:43 Pulse Ox 98 10/28/21 09:43 O2 Del Method 10/28/21 09:43 BMI result Body Mass Index 25.8 Const: Other: Awake confused at baseline Resp: Other: Clear to auscultation bilaterally no rales rhonchi or wheezes Cardio: Other: No S4; positive S1-S2; no S3 murmurs rubs or gallops GI: Other: Soft nontender nondistended normoactive bowel sounds Extrem: Other: See admission photo for details Objective Data Active Medications Acetaminophen (Acetaminophen 325 Mg Tablet) 650 mg PO Q6H PRN PRN Reason: Pain, Mild (Pain Scale 1-3) Last Admin: 10/27/21 22:55 Dose: 650 mg Documented By: JUNITO Al Hydroxide/Mg Hydroxide (Magnesium Hydrox/Alum Hydrox 30 Ml Oral.Susp) 30 ml PO Q4H PRN PRN Reason: Indigestion Ascorbic Acid (Ascorbic Acid 500 Mg Tablet) 500 mg PO DAILY [facility] Last Admin: 10/28/21 09:44 Dose: 500 mg Documented By: WEST Benztropine Mesylate (Benztropine Mesylate 0.5 Mg Tablet) 0.5 mg PO BID [facility] Last Admin: 10/28/21 09:44 Dose: 0.5 mg Documented By: WEST Benztropine Mesylate (Benztropine Mesylate 1 Mg Tablet) 1 mg PO BID [facility] Last Admin: 10/28/21 09:44 Dose: 1 mg Documented By: WEST Empagliflozin (Empagliflozin 10 Mg Tablet) 10 mg PO DAILY [facility] Last Admin: 10/28/21 09:45 Dose: 10 mg Documented By: WEST Enoxaparin Sodium (Enoxaparin Sodium 40 Mg/0.4 Ml Syringe) 40 mg SUBCUT Q24H [facility] Last Admin: 10/27/21 22:53 Dose: 40 mg Documented By: JUNITO Gemfibrozil (Gemfibrozil 600 Mg Tablet) 600 mg PO BID [facility] Last Admin: 10/28/21 09:45 Dose: 600 mg Documented By: WEST Haloperidol (Haloperidol 0.5 Mg Tablet) 0.5 mg PO BID [facility] Last Admin: 10/28/21 09:44 Dose: 0.5 mg Documented By: WEST Haloperidol (Haloperidol 1 Mg Tablet) 1 mg PO BID [facility] Last Admin: 10/28/21 09:48 Dose: 1 mg Documented By: WEST Piperacillin Sod/Tazobactam (Sod 4.5 gm/ Sodium Chloride) 100 mls @ 200 mls/hr IV Q6H [facility] Last Infusion: 10/28/21 10:15 Dose: 0 mls/hr Documented By: WEST Vancomycin HCl 1,500 mg/ (Sodium Chloride) 500 mls @ 333.333 mls/hr IV Q12H [facility] Last Infusion: 10/28/21 08:51 Dose: 0 mls/hr Documented By: WEST Insulin Glargine (Insulin Glargine,Hum.Rec.Anlog 100 Unit/Ml 10 Ml Vial) 31 unit SUBCUT DAILY [facility] Last Admin: 10/28/21 09:47 Dose: 31 unit Documented By: WEST Insulin Glargine (Insulin Glargine,Hum.Rec.Anlog 100 Unit/Ml 10 Ml Vial) 10 unit SUBCUT BEDTIME [facility] Last Admin: 10/27/21 22:57 Dose: 10 unit Documented By: MADDENL Lactulose (Lactulose 20 Gm/30 Ml Solution) 60 gm PO TID [facility] Last Admin: 10/28/21 09:45 Dose: 60 gm Documented By: WEST Metformin HCl (Metformin Hcl 1,000 Mg Tablet) 1,000 mg PO BIDWM [facility] Last Admin: 10/28/21 09:45 Dose: 1,000 mg Documented By: WEST Ondansetron HCl (Ondansetron Hcl 4 Mg/2 Ml Vial) 4 mg IVPUSH Q8H PRN PRN Reason: Nausea and Vomiting Oxycodone HCl (Oxycodone Hcl Immed Release 5 Mg Tablet) 5 mg PO Q6H PRN PRN Reason: Pain, Severe (Pain Scale 7-10) Pharmacy Consult (Consult Rx Perform Med Rec) 1 each MISCELLANE ONCE PRN PRN Reason: Consult order Pharmacy Consult (Consult Rx Vancomycin Dosing) 1 each MISCELLANE DAILY PRN PRN Reason: Consult order Pharmacy Consult (Consult Rx Perform Med Rec) 1 each MISCELLANE ONCE PRN PRN Reason: Consult order Pharmacy Consult (Consult Rx Vancomycin Dosing) 1 each MISCELLANE DAILY PRN PRN Reason: Consult order Propranolol HCl (Propranolol Hcl 10 Mg Tablet) 5 mg PO BID [facility]; Protocol Last Admin: 10/28/21 09:45 Dose: 5 mg Documented By: WEST Rifaximin (Rifaximin 550 Mg Tablet) 550 mg PO BID [facility] Last Admin: 10/28/21 09:45 Dose: 550 mg Documented By: WEST Senna (Sennosides 8.6 Mg Tablet) 8.6 mg PO Q24H PRN PRN Reason: Constipation Simethicone (Simethicone 80 Mg Tab.Chew) 160 mg PO BID [facility] Last Admin: 10/28/21 09:44 Dose: 160 mg Documented By: WEST Sodium Chloride (0.9 % Sodium Chloride Flush 3 Ml Syringe) 3 ml IVFLUSH QSHIFT [facility] Last Admin: 10/28/21 09:46 Dose: 3 ml Documented By: WEST Labs CBC & Chem 7: 10/28/21 04:06 10/28/21 04:06 Labs: Laboratory Results - last 24 hr 10/27/21 10/27/21 10/27/21 13:54 14:12 14:12 MCV MCH MCHC RDW Plt Count MPV Immature Gran % (Auto) Neut % (Auto) Lymph % (Auto) Titus % (Auto) Eos % (Auto) Baso % (Auto) Lymph # (Auto) Titus # (Auto) Eos # (Auto) Baso # (Auto) Abs Immat Gran (auto) Absolute Neuts (auto) Absolute Nucleated RBC Nucleated RBC % (auto) ESR Anion Gap 18 Estim Creat Clear Calc 131.6 Estimated GFR > 60 POC Glucose Random Glucose 79 Fasting Glucose Lactic Acid 2.1 H* Lactic Acid F/U @ 2Hr Calcium 9.5 Total Bilirubin 0.3 Direct Bilirubin < 0.2 AST 10 ALT 10 Alkaline Phosphatase 90 C-Reactive Protein 10.98 H Total Protein 7.7 Albumin 4.3 COVID-19 (NESTOR) Negative COVID-19 Clin Com See Note 07/26/22 07/26/22 07/26/22 14:22 17:29 18:00 MCV 87.9 MCH 27.5 MCHC 31.3 RDW 12.7 Plt Count 342 MPV 10.4 Immature Gran % (Auto) 0.3 Neut % (Auto) 69.5 Lymph % (Auto) 16.9 L Titus % (Auto) 10.5 Eos % (Auto) 2.4 Baso % (Auto) 0.4 Lymph # (Auto) 1.5 Titus # (Auto) 0.9 Eos # (Auto) 0.2 Baso # (Auto) 0.0 Abs Immat Gran (auto) 0.03 Absolute Neuts (auto) 6.2 Absolute Nucleated RBC 0.000 Nucleated RBC % (auto) 0.0 ESR 71 H Anion Gap Estim Creat Clear Calc Estimated GFR POC Glucose Random Glucose Fasting Glucose Lactic Acid Lactic Acid F/U @ 2Hr 1.8 Calcium Total Bilirubin Direct Bilirubin AST ALT Alkaline Phosphatase C-Reactive Protein Total Protein Albumin COVID-19 (NESTOR) COVID-[employer] 10/27/21 10/28/21 10/28/21 21:58 04:06 04:06 MCV 84.1 MCH 27.5 MCHC 32.7 RDW 12.5 Plt Count 385 MPV 10.5 Immature Gran % (Auto) 0.5 H Neut % (Auto) 67.1 Lymph % (Auto) 20.1 Titus % (Auto) 9.2 Eos % (Auto) 2.6 Baso % (Auto) 0.5 Lymph # (Auto) 1.7 Titus # (Auto) 0.8 Eos # (Auto) 0.2 Baso # (Auto) 0.0 Abs Immat Gran (auto) 0.04 H Absolute Neuts (auto) 5.7 Absolute Nucleated RBC 0.000 Nucleated RBC % (auto) 0.0 ESR Anion Gap 14 Estim Creat Clear Calc 113.0 Estimated GFR > 60 POC Glucose 172 H Random Glucose Fasting Glucose 153 H Lactic Acid Lactic Acid F/U @ 2Hr Calcium 9.0 Total Bilirubin 0.2 Direct Bilirubin AST 8 ALT 8 Alkaline Phosphatase 82 C-Reactive Protein Total Protein 7.2 Albumin 4.0 COVID-19 (NESTOR) COVID-19 [employer] 10/28/21 07:01 MCV MCH MCHC RDW Plt Count MPV Immature Gran % (Auto) Neut % (Auto) Lymph % (Auto) Titus % (Auto) Eos % (Auto) Baso % (Auto) Lymph # (Auto) Titus # (Auto) Eos # (Auto) Baso # (Auto) Abs Immat Gran (auto) Absolute Neuts (auto) Absolute Nucleated RBC Nucleated RBC % (auto) ESR Anion Gap Estim Creat Clear Calc Estimated GFR POC Glucose 173 H Random Glucose Fasting Glucose Lactic Acid Lactic Acid F/U @ 2Hr Calcium Total Bilirubin Direct Bilirubin AST ALT Alkaline Phosphatase C-Reactive Protein Total Protein Albumin COVID-19 (NESTOR) COVID-19 Clin Com Assessment and Plan (1) Osteomyelitis of toe: Status: Acute (2) Diabetes: Status: Acute (3) Anoxic brain damage: Status: Acute Plan 51[facility] found to have necrotic left 3rd toe. X-rays inconclusive for osteomyelitis however highly suggestive. 1. Osteomyelitis -vancomycin/Zosyn (2) -MRI in a.m. to fully evaluate bony structures (based on vascular recommendations) -vascular consult in a.m. -will likely need PICC line if MRI findings confirm osteomyelitis 2. Anoxic brain injury -continue all outpatient therapies as per [facility] -adjust as clinically indicated 3. Diabetes type 2 -will continue outpatient therapies -adjust as indicated 4. Encephalopathy -continue rifimixan/lactulose as per [facility] Full code Lovenox Patient requires ongoing hospitalization for IV antibiotics to treat necrotic toe Quality Stroke Does the patient have a stroke diagnosis?: No VTE Prior VTE?: No VTE Risk Level:: Medical - moderate - high VTE Device Contraindication: Treatment Not Indicated VTE Drug Contraindication: N/A - Med Ordered
--- NOTE | 2021-10-28 11:52 | PC.NURSE ---
rn to rn report given to tal carney aware of plan of care for transfer to room 347.
[2021-10-28 12:13] VITALS: BP 141/77; PULSE 88; RESP 16; TEMP 36.4; O2SAT 99
[2021-10-28 12:14] LABS: Glucose, Whole Blood 166 mg/dL (60-115)
--- NOTE | 2021-10-28 12:20 | PM.CNGS ---
History of Present Illness Consult details Consult date: 10/28/21 Narrative: 51-year-old diabetic gentleman with a history of a Mcduffie and brain damage. He presented to the hospital with gangrene of the left 3rd toe. He has been subsequently admitted for workup and evaluation. He presents to us for vascular evaluation. Of note he is a fairly poor historian and was difficult to get any significant history from him. He does not recall how long this is been going on for. Review of Systems Review of Systems: Yes all other systems are reviewed and are negative Constitutional: Constitutional: Reports no additional constitutional complaints ENT: Reports Normal hearing present Cardiovascular: Cardiovascular: Denies chest pain, Denies chest pain at rest, Denies chest pain with activity and Denies pedal edema Respiratory: Respiratory: Denies cough Gastrointestinal: Gastrointestinal: Denies abdominal pain Musculoskeletal: Musculoskeletal: Denies abnormal gait, Denies muscle cramps and Denies radiating pain into limb Integumentary/Breasts: Skin/Breast: Denies skin ulcer and Denies wounds Neurologic: Reports Normal hearing present and Denies abnormal gait Psychiatric: Psychiatric: Reports no additional psychiatric complaints [facility] Past Medical History Medical History (Updated 10/28/21 @ 12:22 by Robbin Lee MD) Anoxic brain damage Diabetes Dysphagia Encephalopathy Hyperlipemia Social History Social History Alcohol intake: unknown Patient Tobacco Use Status: Former Tobacco user Smoked in Last 30 Days: No Use of substances other than those prescribed or required for medical reasons: Unknown Advance Directives: No Advance Directives Information Provided: No Meds Allergies Allergy/AdvReac Type Severity Reaction Status Date / Time No Known Allergies Allergy Verified 07/07/21 09:53 [No Known Allergies*] Active Medications: Current Medications Acetaminophen (Acetaminophen 325 Mg Tablet) 650 mg PO Q6H PRN PRN Reason: Pain, Mild (Pain Scale 1-3) Last Admin: 10/27/21 22:55 Dose: 650 mg Al Hydroxide/Mg Hydroxide (Magnesium Hydrox/Alum Hydrox 30 Ml Oral.Susp) 30 ml PO Q4H PRN PRN Reason: Indigestion Ascorbic Acid (Ascorbic Acid 500 Mg Tablet) 500 mg PO DAILY TIM Last Admin: 10/28/21 09:44 Dose: 500 mg Benztropine Mesylate (Benztropine Mesylate 0.5 Mg Tablet) 0.5 mg PO BID [facility] Last Admin: 10/28/21 09:44 Dose: 0.5 mg Benztropine Mesylate (Benztropine Mesylate 1 Mg Tablet) 1 mg PO BID [facility] Last Admin: 10/28/21 09:44 Dose: 1 mg Empagliflozin (Empagliflozin 10 Mg Tablet) 10 mg PO DAILY [facility] Last Admin: 10/28/21 09:45 Dose: 10 mg Enoxaparin Sodium (Enoxaparin Sodium 40 Mg/0.4 Ml Syringe) 40 mg SUBCUT Q24H [facility] Last Admin: 10/27/21 22:53 Dose: 40 mg Gemfibrozil (Gemfibrozil 600 Mg Tablet) 600 mg PO BID [facility] Last Admin: 10/28/21 09:45 Dose: 600 mg Haloperidol (Haloperidol 0.5 Mg Tablet) 0.5 mg PO BID [facility] Last Admin: 10/28/21 09:44 Dose: 0.5 mg Haloperidol (Haloperidol 1 Mg Tablet) 1 mg PO BID [facility] Last Admin: 10/28/21 09:48 Dose: 1 mg Piperacillin Sod/Tazobactam (Sod 4.5 gm/ Sodium Chloride) 100 mls @ 200 mls/hr IV Q6H [facility] Last Infusion: 10/28/21 10:15 Dose: Infused Vancomycin HCl 1,500 mg/ (Sodium Chloride) 500 mls @ 333.333 mls/hr IV Q12H [facility] Last Infusion: 10/28/21 08:51 Dose: Infused Insulin Glargine (Insulin Glargine,Hum.Rec.Anlog 100 Unit/Ml 10 Ml Vial) 31 unit SUBCUT DAILY [facility] Last Admin: 10/28/21 09:47 Dose: 31 unit Insulin Glargine (Insulin Glargine,Hum.Rec.Anlog 100 Unit/Ml 10 Ml Vial) 10 unit SUBCUT BEDTIME [facility] Last Admin: 10/27/21 22:57 Dose: 10 unit Lactulose (Lactulose 20 Gm/30 Ml Solution) 60 gm PO TID [facility] Last Admin: 10/28/21 09:45 Dose: 60 gm Metformin HCl (Metformin Hcl 1,000 Mg Tablet) 1,000 mg PO BIDWM [facility] Last Admin: 10/28/21 09:45 Dose: 1,000 mg Ondansetron HCl (Ondansetron Hcl 4 Mg/2 Ml Vial) 4 mg IVPUSH Q8H PRN PRN Reason: Nausea and Vomiting Oxycodone HCl (Oxycodone Hcl Immed Release 5 Mg Tablet) 5 mg PO Q6H PRN PRN Reason: Pain, Severe (Pain Scale 7-10) Pharmacy Consult (Consult Rx Perform Med Rec) 1 each MISCELLANE ONCE PRN PRN Reason: Consult order Pharmacy Consult (Consult Rx Vancomycin Dosing) 1 each MISCELLANE DAILY PRN PRN Reason: Consult order Pharmacy Consult (Consult Rx Perform Med Rec) 1 each MISCELLANE ONCE PRN PRN Reason: Consult order Pharmacy Consult (Consult Rx Vancomycin Dosing) 1 each MISCELLANE DAILY PRN PRN Reason: Consult order Propranolol HCl (Propranolol Hcl 10 Mg Tablet) 5 mg PO BID [facility]; Protocol Last Admin: 10/28/21 09:45 Dose: 5 mg Rifaximin (Rifaximin 550 Mg Tablet) 550 mg PO BID [facility] Last Admin: 10/28/21 09:45 Dose: 550 mg Senna (Sennosides 8.6 Mg Tablet) 8.6 mg PO Q24H PRN PRN Reason: Constipation Simethicone (Simethicone 80 Mg Tab.Chew) 160 mg PO BID [facility] Last Admin: 10/28/21 09:44 Dose: 160 mg Sodium Chloride (0.9 % Sodium Chloride Flush 3 Ml Syringe) 3 ml IVFLUSH [facility] Last Admin: 10/28/21 09:46 Dose: 3 ml Home Medications Medication Instructions Recorded Confirmed Last Taken Type acetaminophen 325 mg tablet 650 mg PO Q6H PRN Pain 10/27/21 10/27/21 Unknown History aluminum-mag hydroxide-simethicone 30 ml PO Q4H PRN Indigestion 10/27/21 10/27/21 Unknown History 200 mg-200 mg-20 mg/5 mL oral susp ascorbic acid (vitamin C) 500 mg 500 mg PO DAILY 10/27/21 10/27/21 Unknown History tablet benztropine 0.5 mg tablet 0.5 mg PO BID 10/27/21 10/27/21 Unknown History benztropine 1 mg tablet 1 mg PO BID 10/27/21 10/27/21 Unknown History dapagliflozin 10 mg tablet 10 mg PO DAILY 10/27/21 10/27/21 Unknown History (Farxi) dulaglutide 1.5 mg/0.5 mL 1.5 mg subcut FR 10/27/21 10/27/21 Unknown History subcutaneous pen injector (Trulicity) gemfibrozil 600 mg tablet 600 mg PO BID 10/27/21 10/27/21 Unknown History haloperidol 0.5 mg tablet 0.5 mg PO BID 10/27/21 10/27/21 Unknown History haloperidol 1 mg tablet 1 mg PO BID 10/27/21 10/27/21 Unknown History insulin detemir U-100 100 unit/mL 45 unit subcut DAILY 10/27/21 10/27/21 Unknown History (3 mL) subcutaneous pen (Levemir FlexTouch U-100 Insulin) insulin detemir U-100 100 unit/mL 15 unit subcut BEDTIME 10/27/21 10/27/21 Unknown History subcutaneous solution (Levemir U-100 Insulin) insulin lispro 100 unit/mL 0 sliding scale dose subcut 10/27/21 10/27/21 Unknown History subcutaneous solution (Humalog USEASDIRECTD U-100 Insulin) lactulose 10 gram/15 mL (15 mL) 90 ml PO TID 10/27/21 10/27/21 Unknown History oral solution lanolin alcohols-mineral 1 appl topical BEDTIME 10/27/21 10/27/21 Unknown History oil-w.petrolatum-ceresin topical cream (Minerin Creme topical) metformin 1,000 mg tablet 1,000 mg PO BID 10/27/21 10/27/21 Unknown History miconazole nitrate 2 % topical 1 appl topical MOWEFR@2100 10/27/21 10/27/21 Unknown History powder (Miconazorb AF) nystatin 100,000 unit/gram topical 1 appl topical Q8H PRN redened 10/27/21 10/27/21 Unknown History powder areas propranolol 10 mg tablet 5 mg PO BID 10/27/21 10/27/21 Unknown History rifaximin 550 mg tablet 550 mg PO BID 10/27/21 10/27/21 Unknown History sennosides 8.6 mg tablet (senna) 8.6 mg PO Q24H PRN Constipation 10/27/21 10/27/21 Unknown History simethicone 80 mg chewable tablet 160 mg PO BID 10/27/21 10/27/21 Unknown History Physical Exam Vital Signs: Vital Signs: Last Vital Signs Temp 97.5 F 10/28/21 12:13 Pulse 88 10/28/21 12:13 Resp 16 10/28/21 12:13 BP 141/77 H 10/28/21 12:13 Pulse Ox 99 10/28/21 12:13 O2 Del Method 10/28/21 12:13 BMI result Body Mass Index 25.8 Const: General: cooperative, healthy appearing and comfortable Orientation/consciousness: oriented to person, oriented to place and oriented to time HEENT: Head: Yes normal to inspection Neck: Neck: Yes normal visual inspection Carotids: no bruits Chest: Chest palpation & inspection: normal inspection of the chest Resp: Effort & Inspection: normal respiratory effort and able to speak in complete sentences Auscultation: clear to auscultation bilaterally, no crackles, no rales, no rhonchi and no wheezes Cardio: Rate: regular rate Rhythm: regular rhythm Heart sounds: S1 normal heart sound present and S2 normal heart sound present Bruits: no carotid bruits Peripheral pulses: dorsalis pedis present (Bilateral DP signals) GI: Inspection: Yes normal to inspection Skin: Wounds: wounds noted (Gangrene left 3rd toe) Hair: normal Neuro: General: oriented to person, oriented to place and oriented to time Cranial nerves: Yes CN's II-XII intact bilaterally and Yes Normal hearing present Cognition (Neuro): normal cognition Motor exam (neuro): 5/5 motor strength present throughout Extrem: Other: venous exam: No significant superficial varicosities or spider telangiectasias, minimal edema General: No clubbing, No cyanosis and No edema Psych: Appearance: grossly normal Mental Status: mental status grossly normal Speech and movement: Normal speech and movement present Results Labs Result diagrams: 10/28/21 04:06 10/28/21 04:06 Labs: Abnormal lab results 10/27/21 10/27/21 10/27/21 Range/Units 14:12 14:12 14:22 Hgb (14.0-18.0) g/dl Hct (42.0-52.0) % Immature Gran % (Auto) (0.0-0.4) % Lymph % (Auto) 16.9 L (20-40) % Abs Immat Gran (auto) (0.00-0.03) X10*3/uL ESR (0-15) MM/HR Chloride (96-108) mmol/L Carbon Dioxide (22-29) mmol/L POC Glucose (60-115) mg/dL Fasting Glucose (60-99) mg/dL Lactic Acid 2.1 H* (0.5-2.0) mmol/L C-Reactive Protein 10.98 H (< or = 0.50) mg/dL 10/27/21 10/27/21 10/28/21 Range/Units 18:00 21:58 04:06 Hgb (14.0-18.0) g/dl Hct (42.0-52.0) % Immature Gran % (Auto) (0.0-0.4) % Lymph % (Auto) (20-40) % Abs Immat Gran (auto) (0.00-0.03) X10*3/uL ESR 71 H (0-15) MM/HR Chloride 109 H (96-108) mmol/L Carbon Dioxide 21 L (22-29) mmol/L POC Glucose 172 H (60-115) mg/dL Fasting Glucose 153 H (60-99) mg/dL Lactic Acid (0.5-2.0) mmol/L C-Reactive Protein (< or = 0.50) mg/dL 10/28/21 10/28/21 10/28/21 Range/Units 04:06 07:01 12:09 Hgb 13.3 L (14.0-18.0) g/dl Hct 40.7 L (42.0-52.0) % Immature Gran % (Auto) 0.5 H (0.0-0.4) % Lymph % (Auto) (20-40) % Abs Immat Gran (auto) 0.04 H (0.00-0.03) X10*3/uL ESR (0-15) MM/HR Chloride (96-108) mmol/L Carbon Dioxide (22-29) mmol/L POC Glucose 173 H 166 H (60-115) mg/dL Fasting Glucose (60-99) mg/dL Lactic Acid (0.5-2.0) mmol/L C-Reactive Protein (< or = 0.50) mg/dL Short CBC 10/27/21 10/28/21 Range/Units 14:22 04:06 WBC 8.9 8.5 (4.8-10.8) X10*3/uL Hgb 14.6 13.3 L (14.0-18.0) g/dl Hct 46.7 40.7 L (42.0-52.0) % Plt Count 342 385 (160-400) X10*3/uL BMP 10/27/21 10/28/21 14:12 04:06 Sodium 139 140 Potassium 4.5 4.2 Chloride 103 109 H Carbon Dioxide 23 21 L BUN 11 15 Creatinine 0.67 0.78 Calcium 9.5 9.0 Liver Function 10/27/21 10/28/21 Range/Units 14:12 04:06 Total Bilirubin 0.3 0.2 (0.0-1.0) mg/dL Direct Bilirubin < 0.2 (0.0-0.5) mg/dL AST 10 8 (5-37) U/L ALT 10 8 (0-40) U/L Alkaline Phosphatase 90 82 (39-117) U/L Albumin 4.3 4.0 (3.5-5.0) g/dL All other labs normal. Assessment and Plan (1) PAD (peripheral artery disease): Status: Acute Plan In short patient has a nonhealing left foot ulcer. Due to his longstanding history of diabetes will need arterial evaluation. I have taken the liberty of ordering noninvasive testing. In addition I do not believe that toe is salvageable and may require amputation. This was related to the patient as well. We will follow with you. Awaiting results of arterial testing. Thank you for allowing me to participate in his care. Procedures Date of Service Date of Service: 10/28/21
[2021-10-28] MEDS: oxyCODONE HCl Immed Release 5 MG TABLET PO (12:33)
[2021-10-28 15:07] VITALS: BP 141/92; PULSE 92; RESP 18; TEMP 36.3; O2SAT 96
[2021-10-28 15:56] LABS: Glucose, Whole Blood 155 mg/dL (60-115)
--- NOTE | 2021-10-28 16:00 | PC.NURSE ---
Patient arrived to room 347 at around 12:30. Alert, confused. Ambulates with steady gait. Telesitter placed for risk of elopement. Patient exiting room several times. Easily redirected.
[2021-10-28 17:03] LABS: Vancomycin Random 15.4 mcg/mL (15-20)
[2021-10-28] MEDS: Acetaminophen 325 MG TABLET 650 MG PO (19:15)
[2021-10-28] MEDS: Enoxaparin Sodium 40 MG/0.4 ML SYRINGE SUBCUT (20:57)
[2021-10-28 21:05] LABS: Glucose, Whole Blood 131 mg/dL (60-115)
[2021-10-28] MEDS: Insulin Glargine,Hum.rec.anlog 100 UNIT/ML 10 ML VIAL 10 UNIT SUBCUT (21:05)
[2021-10-29] VITALS (12 sets, daily range): BP systolic 156–195; BP diastolic 63–97; PULSE 74–90; RESP 14–18; TEMP 36–36.9; O2SAT 97–100
[2021-10-29 05:38] LABS: MANUAL DIFF FLAG NO
[2021-10-29 05:41] LABS: Basophils Absolute Auto 0.1 X10*3/uL (0.0-0.2); Basophils Percent Auto 0.7 % (0-2); Eosinophils Absolute Auto 0.3 X10*3/uL (0.0-0.4); Eosinophils Percent Auto 3.8 % (0-4); Hematocrit 41.1 % (42.0-52.0); Hemoglobin 13.3 g/dl (14.0-18.0); Imm Gran Abs Auto 0.04 X10*3/uL (0.00-0.03); Imm Gran Pct Auto 0.6 % (0.0-0.4); Lymphocytes Absolute Auto 1.4 X10*3/uL (1.2-4.9); Lymphocytes Percent Auto 20.2 % (20-40); Mean Corpuscular HGB Conc 32.4 g/dl (31.0-36.0); Mean Corpuscular Hemoglobin 27.5 pg (27.0-33.0); Mean Corpuscular Volume 85.1 fL (80.0-98.0); Mean Platelet Volume 10.5 fL (9.4-12.4); Monocytes Absolute Auto 0.7 X10*3/uL (0.1-1.2); Monocytes Percent Auto 9.9 % (2-11); Neutrophils Absolute Auto 4.4 x10*3/uL (2.0-8.3); Neutrophils Percent Auto 64.8 % (45-73); Platelet Count 363 X10*3/uL (160-400); Red Blood Count 4.83 X10*6/uL (4.60-5.80); Red Cell Distribution Width 12.5 % (11.0-16.0); White Blood Count 6.8 X10*3/uL (4.8-10.8)
[2021-10-29 06:13] LABS: Alanine Aminotransferase 8 U/L (0-40); Alkaline Phosphatase 85 U/L (39-117); Anion Gap 14 (12-20); Aspartate Amino Transferase 8 U/L (5-37); Bilirubin Total < 0.2 mg/dL (0.0-1.0); Blood Urea Nitrogen 14 mg/dL (9-16); Calcium 9.1 mg/dL (8.4-10.2); Carbon Dioxide 21 mmol/L (22-29); Chloride 110 mmol/L (96-108); Creatinine Clr Calc Pharmacy 120.8; Estimated Glomerular Filt Rate > 60; Glucose Fasting 112 mg/dL (60-99); Potassium 3.9 mmol/L (3.3-5.1); Sodium 141 mmol/L (135-145); Total Protein 7.1 g/dL (6.5-8.0)
[2021-10-29 07:33] LABS: Glucose, Whole Blood 109 mg/dL (60-115)
--- NOTE | 2021-10-29 08:50 | P.CDIC_ITS ---
CDI Concurrent Query Documentation Clarification: PHYSICIAN'S DOCUMENTATION REQUEST Date of Query: 10/29/21 0850 Patient Name: Jogre Oliva Admit Date: 10/27/21 Dear Doctor, A review of the medical record indicates additional documentation may be needed. Please review below and update the documentation accordingly. Clinical Indicators: Risk Factors/Clinical Indicators/Treatments H & P - 10/27 - encephalopathy Awake, confused at baseline, anoxic brain damage. Continue rifimixan/lactulose. Unable to obtain history secondary to Dementia. Based on the above, please further specify, in the Progress Notes, the known or suspected type of the documented encephalopathy and Dementia noted in the medical record: * Metabolic * Toxic * Toxic metabolic * Hypertensive * Anoxic * Due to a specified condition (such as UTI, hyponatremia, CVA, etc.) * Other (please specify) * Unable to determine Use of terms such as suspected, likely, concern for, or probable (associated with a specific diagnosis that is being evaluated, monitored, or treated as if it exists) are acceptable and can be coded in the inpatient setting, when documented at the time of discharge. Thank you, Yue Lazaro [facility], CDIS Extension: [phone] Please use your independent medical judgment in providing your response. THIS QUERY IS PART OF THE PERMANENT MEDICAL RECORD Provider Response: Other Other Diagnosis: Encephalopathy/dementia as a result of anoxic brain injury
--- NOTE | 2021-10-29 08:57 | HO.VASCPN ---
Subjective Subjective Date of Service: 10/29/21 Patient reports: no new complaints Interval history: Patient seen and examined. Was somewhat combative last night. Upset that he did not have breakfast this morning. He was made NPO for procedure later today. Reports no other significant pain. He is now for follow-up. Physical Exam Vital Signs: Vital Signs: Last Vital Signs Temp 97.1 F 10/29/21 08:00 Pulse 82 10/29/21 08:00 Resp 16 10/29/21 08:00 BP 162/63 H 10/29/21 08:00 Pulse Ox 100 10/29/21 08:00 O2 Del Method 10/29/21 08:00 BMI result Body Mass Index 25.8 Const: General: cooperative, healthy appearing and no acute distress Orientation/consciousness: oriented to person, oriented to place and oriented to time HEENT: Head: Yes normal to inspection Neck: Carotids: no bruits Chest: Chest palpation & inspection: normal inspection of the chest Resp: Effort & Inspection: normal respiratory effort and able to speak in complete sentences Auscultation: clear to auscultation bilaterally Cardio: Rate: regular rate Heart sounds: S1 normal heart sound present and S2 normal heart sound present GI: Inspection: Yes normal to inspection Skin: General skin exam: no rashes or lesions noted Wounds: wounds noted ( Left 3rd toe gangrene) Neuro: General: oriented to person, oriented to place, oriented to time and CN's II-XI intact bilaterally Extrem: General: Yes normal to inspection, Yes full ROM and Yes no clubbing, cyanosis or edema Psych: Appearance: grossly normal and well kempt Speech and movement: Normal speech and movement present Affect: normal affect Progress Note: A&P Assessment and plan (1) PAD (peripheral artery disease): Status: Acute Assessment and Plan: Patient left foot ulcer. I have discussed the pathophysiology of peripheral vascular disease with the patient. I have also discussed risk factor modification. I have reviewed the patient's arterial testing which reveals CARMELLA of 0.61. the patient would benefit from a left leg endovascular peripheral angiogram with possible angioplasty, stent, and/or atherectomy. This has been discussed in detail with the patient along with risks, benefits, and complications. This includes but is not limited to bleeding, infection, heart attack, need for emergent surgical repair, limb ischemia, blood vessel damage, bleeding, puncture, kidney injury, bruising, allergic reaction, and skin reaction. The patient demonstrates a clear understanding. We will schedule for the next appropriate time. Thank you for allowing us to assist in this patient's care. Time Spent With Patient Time: Total time spent is greater than 50% in coordination of care (as documented) at patient's floor/unit and/or counseling patient: Procedures Date of Service Date of Service: 10/29/21 Quality Stroke Does the patient have a stroke diagnosis?: No VTE Prior VTE?: No VTE Risk Level:: Medical - moderate - high VTE Device Contraindication: Treatment Not Indicated VTE Drug Contraindication: N/A - Med Ordered
[2021-10-29] MEDS: Haloperidol Lactate 5 MG/ML VIAL IM (10:37)
[2021-10-29] MEDS: diazePAM 10 MG/2 ML CARTRIDGE 5 MG IM (10:38)
--- NOTE | 2021-10-29 11:04 | PC.NURSE ---
patient not oriented to time, person, but alerted to place. unable to answer most questions as left blank.
[2021-10-29 11:11] LABS: Glucose, Whole Blood 92 mg/dL (60-115)
--- NOTE | 2021-10-29 11:45 | HO.PM.IMPN ---
Subjective Subjective Date of Service: 10/29/21 Interval History: Mild behavioral issues that responded to therapies. Voices no complaints of pain Review of Systems Can obtain accurate ROS secondary to dementia Physical Exam Vital Signs: Vital Signs: Last Vital Signs Temp 97.9 F 10/29/21 10:58 Pulse 88 10/29/21 10:58 Resp 18 10/29/21 10:58 BP 164/88 H 10/29/21 10:58 Pulse Ox 98 10/29/21 10:58 O2 Del Method 10/29/21 10:58 BMI result Body Mass Index 25.8 Const: Other: Awake confused at baseline Resp: Other: Clear to auscultation bilaterally no rales rhonchi or wheezes Cardio: Other: No S4; positive S1-S2; no S3 murmurs rubs or gallops GI: Other: Soft nontender nondistended normoactive bowel sounds Extrem: Other: See admission photo for details Objective Data Active Medications Acetaminophen (Acetaminophen 325 Mg Tablet) 650 mg PO Q6H PRN PRN Reason: Pain, Mild (Pain Scale 1-3) Last Admin: 10/28/21 19:15 Dose: 650 mg Documented By: SUKUMAR Al Hydroxide/Mg Hydroxide (Magnesium Hydrox/Alum Hydrox 30 Ml Oral.Susp) 30 ml PO Q4H PRN PRN Reason: Indigestion Ascorbic Acid (Ascorbic Acid 500 Mg Tablet) 500 mg PO DAILY [facility] Last Admin: 10/29/21 08:57 Dose: Not Given Documented By: ALEJANDRA Non-Admin Reason: NPO Benztropine Mesylate (Benztropine Mesylate 0.5 Mg Tablet) 0.5 mg PO BID [facility] Last Admin: 10/29/21 08:57 Dose: Not Given Documented By: ALEJANDRA Non-Admin Reason: NPO Benztropine Mesylate (Benztropine Mesylate 1 Mg Tablet) 1 mg PO BID [facility] Last Admin: 10/29/21 08:57 Dose: Not Given Documented By: ALEJANDRA Non-Admin Reason: NPO Empagliflozin (Empagliflozin 10 Mg Tablet) 10 mg PO DAILY [facility] Last Admin: 10/29/21 08:57 Dose: Not Given Documented By: ALEJANDRA Non-Admin Reason: NPO Enoxaparin Sodium (Enoxaparin Sodium 40 Mg/0.4 Ml Syringe) 40 mg SUBCUT Q24H [facility] Last Admin: 10/28/21 20:57 Dose: 40 mg Documented By: SUKUMAR Gemfibrozil (Gemfibrozil 600 Mg Tablet) 600 mg PO BID [facility] Last Admin: 10/29/21 08:57 Dose: Not Given Documented By: ALEJANDRA Non-Admin Reason: NPO Haloperidol (Haloperidol 0.5 Mg Tablet) 0.5 mg PO BID [facility] Last Admin: 10/29/21 08:57 Dose: Not Given Documented By: ALEJANDRA Non-Admin Reason: NPO Haloperidol (Haloperidol 1 Mg Tablet) 1 mg PO BID [facility] Last Admin: 10/29/21 08:57 Dose: Not Given Documented By: ALEJANDRA Non-Admin Reason: NPO Piperacillin Sod/Tazobactam (Sod 4.5 gm/ Sodium Chloride) 100 mls @ 200 mls/hr IV Q6H [facility] Last Admin: 10/29/21 08:58 Dose: Not Given Documented By: ALEJANDRA Non-Admin Reason: No Access Sodium Chloride (Ns) 1,000 mls @ 100 mls/hr IVCONT .Q10H [facility] Last Admin: 10/29/21 09:17 Dose: Not Given Documented By: ALEJANDRA Non-Admin Reason: No Access Vancomycin HCl 1,250 mg/ (Sodium Chloride) 250 mls @ 166.667 mls/hr IV Q12H [facility] Last Admin: 10/29/21 06:22 Dose: Not Given Documented By: SUKUMAR Non-Admin Reason: No Access Insulin Glargine (Insulin Glargine,Hum.Rec.Anlog 100 Unit/Ml 10 Ml Vial) 31 unit SUBCUT DAILY [facility] Last Admin: 10/29/21 08:58 Dose: Not Given Documented By: ALEJANDRA Non-Admin Reason: NPO Insulin Glargine (Insulin Glargine,Hum.Rec.Anlog 100 Unit/Ml 10 Ml Vial) 10 unit SUBCUT BEDTIME [facility] Last Admin: 10/28/21 21:05 Dose: 10 unit Documented By: SUKUMAR Lactulose (Lactulose 20 Gm/30 Ml Solution) 60 gm PO TID [facility] Last Admin: 10/29/21 08:58 Dose: Not Given Documented By: ALEJANDRA Non-Admin Reason: NPO Ondansetron HCl (Ondansetron Hcl 4 Mg/2 Ml Vial) 4 mg IVPUSH Q8H PRN PRN Reason: Nausea and Vomiting Oxycodone HCl (Oxycodone Hcl Immed Release 5 Mg Tablet) 5 mg PO Q6H PRN PRN Reason: Pain, Severe (Pain Scale 7-10) Last Admin: 10/28/21 12:33 Dose: 5 mg Documented By: BETH Pharmacy Consult (Consult Rx Perform Med Rec) 1 each MISCELLANE ONCE PRN PRN Reason: Consult order Pharmacy Consult (Consult Rx Vancomycin Dosing) 1 each MISCELLANE DAILY PRN PRN Reason: Consult order Pharmacy Consult (Consult Rx Perform Med Rec) 1 each MISCELLANE ONCE PRN PRN Reason: Consult order Pharmacy Consult (Consult Rx Vancomycin Dosing) 1 each MISCELLANE DAILY PRN PRN Reason: Consult order Propranolol HCl (Propranolol Hcl 10 Mg Tablet) 5 mg PO BID [facility]; Protocol Last Admin: 10/29/21 08:58 Dose: Not Given Documented By: ALEJANDRA Non-Admin Reason: NPO Rifaximin (Rifaximin 550 Mg Tablet) 550 mg PO BID [facility] Last Admin: 10/29/21 08:58 Dose: Not Given Documented By: ALEJANDRA Non-Admin Reason: NPO Senna (Sennosides 8.6 Mg Tablet) 8.6 mg PO Q24H PRN PRN Reason: Constipation Simethicone (Simethicone 80 Mg Tab.Chew) 160 mg PO BID [facility] Last Admin: 10/29/21 08:58 Dose: Not Given Documented By: ALEJANDRA Non-Admin Reason: NPO Sodium Chloride (0.9 % Sodium Chloride Flush 3 Ml Syringe) 3 ml IVFLUSH QSHIFT [facility] Last Admin: 10/29/21 07:29 Dose: Not Given Documented By: ALEJANDRA Non-Admin Reason: No Access Labs CBC & Chem 7: 10/29/21 05:14 10/29/21 05:14 Labs: Laboratory Results - last 24 hr 10/28/21 10/28/21 10/28/21 12:09 15:52 16:27 MCV MCH MCHC RDW Plt Count MPV Immature Gran % (Auto) Neut % (Auto) Lymph % (Auto) [place] % (Auto) Eos % (Auto) Baso % (Auto) Lymph # (Auto) [place] # (Auto) Eos # (Auto) Baso # (Auto) Abs Immat Gran (auto) Absolute Neuts (auto) Absolute Nucleated RBC Nucleated RBC % (auto) Anion Gap Estim Creat Clear Calc Estimated GFR POC Glucose 166 H 155 H Fasting Glucose Calcium Total Bilirubin AST ALT Alkaline Phosphatase Total Protein Albumin Random Vancomycin 15.4 10/28/21 10/29/21 10/29/21 21:02 05:14 05:14 MCV 85.1 MCH 27.5 MCHC 32.4 RDW 12.5 Plt Count 363 MPV 10.5 Immature Gran % (Auto) 0.6 H Neut % (Auto) 64.8 Lymph % (Auto) 20.2 [place] % (Auto) 9.9 Eos % (Auto) 3.8 Baso % (Auto) 0.7 Lymph # (Auto) 1.4 [place] # (Auto) 0.7 Eos # (Auto) 0.3 Baso # (Auto) 0.1 Abs Immat Gran (auto) 0.04 H Absolute Neuts (auto) 4.4 Absolute Nucleated RBC 0.000 Nucleated RBC % (auto) 0.0 Anion Gap 14 Estim Creat Clear Calc 120.8 Estimated GFR > 60 POC Glucose 131 H Fasting Glucose 112 H Calcium 9.1 Total Bilirubin < 0.2 AST 8 ALT 8 Alkaline Phosphatase 85 Total Protein 7.1 Albumin 4.0 Random Vancomycin 10/29/21 10/29/21 07:30 11:07 MCV MCH MCHC RDW Plt Count MPV Immature Gran % (Auto) Neut % (Auto) Lymph % (Auto) [place] % (Auto) Eos % (Auto) Baso % (Auto) Lymph # (Auto) [place] # (Auto) Eos # (Auto) Baso # (Auto) Abs Immat Gran (auto) Absolute Neuts (auto) Absolute Nucleated RBC Nucleated RBC % (auto) Anion Gap Estim Creat Clear Calc Estimated GFR POC Glucose 109 92 Fasting Glucose Calcium Total Bilirubin AST ALT Alkaline Phosphatase Total Protein Albumin Random Vancomycin Microbiology Microbiology Results: Microbiology 10/27/21 17:29 Blood Culture - Preliminary Blood - Venous No growth after 24 hours. 10/27/21 14:51 Blood Culture - Preliminary Blood - Venous No growth after 24 hours. Assessment and Plan (1) Osteomyelitis of toe: Status: Acute (2) Anoxic brain damage: Status: Acute (3) PAD (peripheral artery disease): Status: Acute Plan 51-year-old male from [facility] found to have necrotic left 3rd toe. X-rays inconclusive for osteomyelitis however highly suggestive. 1. Osteomyelitis -vancomycin/Zosyn (3) -vascular imaging and intervention as per vascular this a.m. -will need PICC line for least 2 weeks of IV vancomycin and Zosyn pending discharge 2. Anoxic brain injury/dementia -continue all outpatient therapies as per [facility] -adjust as clinically indicated 3. Diabetes type 2 -will continue outpatient therapies -adjust as indicated 4. Encephalopathy -continue rifimixan/lactulose as per [facility] Full code Lovenox Patient requires ongoing hospitalization for IV antibiotics to treat necrotic toe Quality Stroke Does the patient have a stroke diagnosis?: No VTE Prior VTE?: No VTE Risk Level:: Medical - moderate - high VTE Device Contraindication: Treatment Not Indicated VTE Drug Contraindication: N/A - Med Ordered
--- NOTE | 2021-10-29 12:08 | PC.NURSE ---
first encounter with patient and bedside sitter staff. primary rn assisting with another patient.
--- NOTE | 2021-10-29 13:34 | W.PM.OPN ---
Operative Note Operative Note Date of Service: 10/29/21 Narrative: Angiogram report from [facility] Preoperative diagnosis: Atherosclerosis of left lower extremity with nonhealing ulcer Postoperative diagnosis: Same Procedure: 1. Ultrasound-guided right common femoral access 2. Aortogram with left lower extremity runoff 3. Left SFA plasty and stent Surgeon:Robbin Lee M.D., FACS, RPVI Shuttle Preparation Supervisor:None Anesthesia: Local with moderate conscious sedation. Total intraservice moderate sedation time was 55 minutes. I monitored the patient's level of consciousness and physiologic status continuously throughout the procedure. Specimens:none Drains:none Estimated blood loss: Less than 10 ml Implant: Medtronic Ev-3 6 x 150 stent Indications: 51-year-old gentleman with a history of smoking and diabetes has a nonhealing left foot ulcer. He now presents for endovascular intervention. Risks benefits complications were discussed earlier in the day with guardian Jose and his daughter Kisha and consent was obtained The patient has signed the informed consent after reviewing risks, complications, benefits, and alternatives previously discussed with the patient. The patient was given the opportunity to ask any additional questions or voice any concerns. All questions were answered to the patient's satisfaction. Procedure in detail: Patient was brought to the angiography suite prior to which a time-out was called for patient identification and site verification. Bilateral groins were prepped and draped in the standard surgical fashion. Under ultrasound guidance right common femoral was punctured with micro puncture needle and wire. Subsequently a precision 5 Icelandic sheath was then placed. Bentson wire was advanced to the level of the aorta. 5 Icelandic Flush catheter was brought up and parked at the level of the renal arteries. Aortogram was then undertaken. Catheter was brought down to the level of the iliac bifurcation. Iliacs were subsequently imaged. Catheter was then brought in up and over to the left side SFA. Runoff study was then undertaken. Once this was accomplished it was recognized that he had an SFA lesion. At this time 5000 units of systemic heparin was administered. After 5 minutes of circulation time up and over 6 Icelandic sheath was then placed. Once this was done we used an 035 glidewire Advantage down and we were able to traverse the lesion. We confirmed true lumen with a now be cross catheter. This was instilled with contrast and we were intraluminal. Once this was accomplished we then plasty this region with a 6 x 80 balloon it required 2 subsequent insufflations. Once this was done we then deployed a 6 x 150 stent. Once deployed we post plasty this with a 6 x 80 balloon. Completion demonstrated a good result and excellent flow through the SFA. Completion angiogram was then undertaken. Catheter wire sheath was brought back to the ipsilateral side. StarClose closure device was then deployed. Patient tolerated the procedure well. Returned to recovery with stable vitals. Interpretation of films: 1. Ultrasound demonstrates appropriate femoral puncture. Image of which was saved. 2. Aortogram demonstrates appropriate caliber aorta. Minimal disease. Appropriate take-off of the renals. 3. Iliac images demonstrate minimal disease mild tortuosity 4. Left Leg Common femoral artery: No significant disease Profundus Femoris: No significant disease Superficial femoral artery: Total occlusion at Leonid's canal with reconstitution immediately at the above knee popliteal Popliteal artery (p1,p2,p3): Patent P1 P2 P3 segments Anterior tibial artery: We will dominant runoff with multiple stenotic lesions throughout but was the main vessel Peroneal artery: Occluded Posterior tibial artery: occluded Dorsalis pedis/plantar arch: Incomplete but there was flow down into the anterior tibial dorsalis pedis portion of the arch. Conclusion: 1. Successful angioplasty and stent of left SFA 2. Anticoagulation status: Will require 6 months of aspirin and Plavix This note is constructed using voice recognition software. While every effort has been made to ensure accuracy, urgent care technician errors may have been included. Thank you for allowing me to participate in the care of your patient. Yours sincerely, Robbin Lee MD, FACS, R.P.V.I.
[2021-10-29] MEDS: Clopidogrel Bisulfate 300 MG TABLET PO (13:56)
[2021-10-29] MEDS: Aspirin 325 MG TABLET 650 MG PO (14:00)
--- NOTE | 2021-10-29 16:22 | MHC.CM.PN ---
PT IS A RESIDENT OF [facility] CM ATTEMPTED TO CONTACT HIS GUARDIAN, SHANNON CARO [phone] VM MESSAGE LEFT REVIEWING PTS MEDICARE RIGHTS AND INFORMING HIM THEY WOULD BE MAILED PCP: RJ SYKES DCP: RETURN TO [facility] VIA BLS
--- NOTE | 2021-10-29 16:23 | MHC.CM.PN ---
PT IS A LTC RESIDENT OF [facility] MESSAGE LEFT FOR PTS GUARDIAN, SHANNON CARO [phone]. PCP: DR SYKES DCP, RETURN TO [facility] VIA S
[2021-10-29 16:35] LABS: Glucose, Whole Blood 100 mg/dL (60-115)
[2021-10-29 16:51] LABS: Vancomycin Random 5.3 mcg/mL (15-20)
[2021-10-29] MEDS: Piperacillin Sodium/Tazobactam 4.5 GM in 0.9 % Sodium Chloride 100 ML IV ×2 (16:57→21:11)
--- NOTE | 2021-10-29 17:02 | HE.PHANOTE ---
RE [facility] PATIENT LOST IV ACCESS AND DID NOT RECEIVE THE PM DOSE ON 10/28 OR THE AM DOSE ON 10/29. THIS EXPLAINS THE LOW TROUGH. PAT HAS IV ACCESS. NEW DOSE IS 1250MG Q12H, NEXT RANDOM 10/30 @1500
[2021-10-29] MEDS: 0.9 % Sodium Chloride Flush 3 ML SYRINGE IVFLUSH (17:05)
[2021-10-29] MEDS: vancomycin HCL 1,250 MG in 0.9 % Sodium Chloride 250 ML 166.67 MG IV (17:36)
[2021-10-29] MEDS: 0.9 % Sodium Chloride 1,000 ML 100 ML IVCONT (19:10)
[2021-10-29] MEDS: Acetaminophen 325 MG TABLET 650 MG PO (19:20)
[2021-10-29 20:54] LABS: Glucose, Whole Blood 164 mg/dL (60-115)
[2021-10-29] MEDS: Lactulose 20 GM/30 ML SOLUTION 60 GM PO (21:11)
[2021-10-29] MEDS: Enoxaparin Sodium 40 MG/0.4 ML SYRINGE SUBCUT (21:11)
[2021-10-29] MEDS: HaloperidoL 1 MG TABLET PO (21:12)
[2021-10-29] MEDS: gemfibroziL 600 MG TABLET PO (21:12)
[2021-10-29] MEDS: Propranolol HCL 10 MG TABLET 5 MG PO (21:12)
[2021-10-29] MEDS: Simethicone 80 MG TAB.CHEW 160 MG PO (21:12)
[2021-10-29] MEDS: Benztropine Mesylate 0.5 MG TABLET PO (21:12)
[2021-10-29] MEDS: HaloperidoL 0.5 MG TABLET PO (21:12)
[2021-10-29] MEDS: Benztropine Mesylate 1 MG TABLET PO (21:12)
[2021-10-29] MEDS: rifAXIMin 550 MG TABLET PO (21:13)
[2021-10-29] MEDS: Insulin Glargine,Hum.rec.anlog 100 UNIT/ML 10 ML VIAL 10 UNIT SUBCUT (21:59)
[2021-10-30] VITALS (7 sets, daily range): BP systolic 134–182; BP diastolic 69–84; PULSE 77–99; RESP 12–18; TEMP 36.1–36.6; O2SAT 95–100
[2021-10-30] MEDS: Piperacillin Sodium/Tazobactam 4.5 GM in 0.9 % Sodium Chloride 100 ML IV ×4 (03:39→21:02)
[2021-10-30 06:00] LABS: MANUAL DIFF FLAG NO
[2021-10-30] MEDS: vancomycin HCL 1,250 MG in 0.9 % Sodium Chloride 250 ML 166.67 MG IV ×2 (06:01→17:28)
[2021-10-30] MEDS: 0.9 % Sodium Chloride 1,000 ML 100 ML IVCONT ×2 (06:01→21:36)
[2021-10-30 06:02] LABS: Basophils Percent Auto 0.4 % (0-2); Eosinophils Absolute Auto 0.2 X10*3/uL (0.0-0.4); Eosinophils Percent Auto 3.3 % (0-4); Hematocrit 38.8 % (42.0-52.0); Hemoglobin 12.8 g/dl (14.0-18.0); Imm Gran Abs Auto 0.04 X10*3/uL (0.00-0.03); Imm Gran Pct Auto 0.5 % (0.0-0.4); Lymphocytes Absolute Auto 1.2 X10*3/uL (1.2-4.9); Lymphocytes Percent Auto 15.8 % (20-40); Mean Corpuscular Hemoglobin 27.8 pg (27.0-33.0); Mean Corpuscular Volume 84.2 fL (80.0-98.0); Mean Platelet Volume 10.6 fL (9.4-12.4); Monocytes Absolute Auto 0.7 X10*3/uL (0.1-1.2); Monocytes Percent Auto 8.9 % (2-11); Neutrophils Absolute Auto 5.2 x10*3/uL (2.0-8.3); Neutrophils Percent Auto 71.1 % (45-73); Platelet Count 324 X10*3/uL (160-400); Red Blood Count 4.61 X10*6/uL (4.60-5.80); Red Cell Distribution Width 12.7 % (11.0-16.0); White Blood Count 7.3 X10*3/uL (4.8-10.8)
[2021-10-30 06:28] LABS: Alanine Aminotransferase 6 U/L (0-40); Albumin Level 3.6 g/dL (3.5-5.0); Alkaline Phosphatase 75 U/L (39-117); Anion Gap 15 (12-20); Aspartate Amino Transferase 10 U/L (5-37); Bilirubin Total 0.2 mg/dL (0.0-1.0); Blood Urea Nitrogen 12 mg/dL (9-16); Calcium 8.4 mg/dL (8.4-10.2); Carbon Dioxide 21 mmol/L (22-29); Chloride 107 mmol/L (96-108); Creatinine Clr Calc Pharmacy 122.5; Estimated Glomerular Filt Rate > 60; Glucose Fasting 216 mg/dL (60-99); Potassium 3.9 mmol/L (3.3-5.1); Sodium 139 mmol/L (135-145); Total Protein 6.4 g/dL (6.5-8.0)
[2021-10-30 07:32] LABS: Glucose, Whole Blood 160 mg/dL (60-115)
[2021-10-30] MEDS: Propranolol HCL 10 MG TABLET 5 MG PO ×2 (09:31→21:13)
[2021-10-30] MEDS: Benztropine Mesylate 0.5 MG TABLET PO ×2 (09:31→21:05)
[2021-10-30] MEDS: Clopidogrel Bisulfate 75 MG TABLET PO (09:31)
[2021-10-30] MEDS: Benztropine Mesylate 1 MG TABLET PO ×2 (09:33→21:05)
[2021-10-30] MEDS: Aspirin 81 MG TAB.CHEW PO (09:34)
[2021-10-30] MEDS: Empagliflozin 10 MG TABLET PO (09:34)
[2021-10-30] MEDS: gemfibroziL 600 MG TABLET PO ×2 (09:34→21:05)
[2021-10-30] MEDS: HaloperidoL 0.5 MG TABLET PO ×2 (09:34→21:06)
[2021-10-30] MEDS: Insulin Glargine,Hum.rec.anlog 100 UNIT/ML 10 ML VIAL 31 UNIT SUBCUT (09:34)
[2021-10-30] MEDS: Simethicone 80 MG TAB.CHEW 160 MG PO ×2 (09:34→21:05)
[2021-10-30] MEDS: Lactulose 20 GM/30 ML SOLUTION 60 GM PO ×3 (09:34→21:04)
[2021-10-30] MEDS: rifAXIMin 550 MG TABLET PO ×2 (09:34→21:05)
[2021-10-30] MEDS: HaloperidoL 1 MG TABLET PO ×2 (09:34→21:06)
[2021-10-30] MEDS: Ascorbic Acid 500 MG TABLET PO (09:34)
--- NOTE | 2021-10-30 10:17 | HO.VASCPN ---
Subjective Subjective Date of Service: 10/30/21 Patient reports: no new complaints and feels better Interval history: Patient seen and examined. Appears in much better spirits today. Reports that the left leg has decreased in pain. His biggest complaint is that he is unable to shower. He now presents for routine vascular follow-up. He was seen with the hospitalist team at my side. Physical Exam Vital Signs: Vital Signs: Last Vital Signs Temp 97.3 F 10/30/21 07:24 Pulse 82 10/30/21 07:24 Resp 14 10/30/21 07:24 BP 141/71 H 10/30/21 07:24 Pulse Ox 99 10/30/21 07:24 O2 Del Method 10/30/21 07:24 BMI result Body Mass Index 25.8 Const: General: cooperative, healthy appearing and comfortable Orientation/consciousness: oriented to person, oriented to place and oriented to time HEENT: Head: Yes normal to inspection Neck: Neck: Yes normal visual inspection Carotids: no bruits Chest: Chest palpation & inspection: normal inspection of the chest Resp: Effort & Inspection: normal respiratory effort and able to speak in complete sentences Auscultation: clear to auscultation bilaterally, no crackles, no rales, no rhonchi and no wheezes Cardio: Rate: regular rate Rhythm: regular rhythm Heart sounds: S1 normal heart sound present and S2 normal heart sound present Bruits: no carotid bruits Peripheral pulses: dorsalis pedis present ( bilateral DP signals) GI: Inspection: Yes normal to inspection Skin: Wounds: wounds noted ( Left 3rd toe gangrene) Hair: normal Neuro: General: oriented to person, oriented to place and oriented to time Cranial nerves: Yes CN's II-XII intact bilaterally and Yes Normal hearing present Cognition (Neuro): normal cognition Motor exam (neuro): 5/5 motor strength present throughout Extrem: Other: venous exam: No significant superficial varicosities or spider telangiectasias, minimal edema General: No clubbing, No cyanosis and No edema Psych: Appearance: grossly normal Mental Status: mental status grossly normal Speech and movement: Normal speech and movement present Progress Note: A&P Assessment and plan (1) PAD (peripheral artery disease): Status: Acute Plan in short patient will require left 3rd toe amputation. Risks benefits complications of the procedure were discussed with the patient. He agreed. We will have to inform his daughter and healthcare proxy. Thank you for allowing us to participate in his care. If there are any questions or concerns please do not hesitate to contact us Time Spent With Patient Time: Total time spent is greater than 50% in coordination of care (as documented) at patient's floor/unit and/or counseling patient: Procedures Date of Service Date of Service: 10/30/21 Quality Stroke Does the patient have a stroke diagnosis?: No VTE Prior VTE?: No VTE Risk Level:: Medical - moderate - high VTE Device Contraindication: Treatment Not Indicated VTE Drug Contraindication: N/A - Med Ordered
--- NOTE | 2021-10-30 11:21 | HO.PM.IMPN ---
Subjective Subjective Date of Service: 10/30/21 Interval History: No acute issues overnight. Sitter present Review of Systems Can obtain accurate ROS secondary to dementia Physical Exam Vital Signs: Vital Signs: Last Vital Signs Temp 97.0 F 10/30/21 11:16 Pulse 85 10/30/21 11:16 Resp 12 10/30/21 11:16 BP 153/79 H 10/30/21 11:16 Pulse Ox 99 10/30/21 11:16 O2 Del Method 10/30/21 11:16 BMI result Body Mass Index 25.8 Const: Other: Awake confused at baseline Resp: Other: Clear to auscultation bilaterally no rales rhonchi or wheezes Cardio: Other: No S4; positive S1-S2; no S3 murmurs rubs or gallops GI: Other: Soft nontender nondistended normoactive bowel sounds Extrem: Other: See admission photo for details Objective Data Active Medications Acetaminophen (Acetaminophen 325 Mg Tablet) 650 mg PO Q6H PRN PRN Reason: Pain, Mild (Pain Scale 1-3) Last Admin: 10/29/21 19:20 Dose: 650 mg Documented By: SUKUMAR Acetaminophen (Acetaminophen 325 Mg Tablet) 650 mg PO Q6H PRN PRN Reason: Pain, Mild (Pain Scale 1-3) Al Hydroxide/Mg Hydroxide (Magnesium Hydrox/Alum Hydrox 30 Ml Oral.Susp) 30 ml PO Q4H PRN PRN Reason: Indigestion Ascorbic Acid (Ascorbic Acid 500 Mg Tablet) 500 mg PO DAILY [facility] Last Admin: 10/30/21 09:34 Dose: 500 mg Documented By: ALEJANDRA Aspirin (Aspirin 81 Mg Tab.Chew) 81 mg PO DAILY [facility] Last Admin: 10/30/21 09:34 Dose: 81 mg Documented By: ALEJANDRA Benztropine Mesylate (Benztropine Mesylate 0.5 Mg Tablet) 0.5 mg PO BID [facility] Last Admin: 10/30/21 09:31 Dose: 0.5 mg Documented By: ALEJANDRA Benztropine Mesylate (Benztropine Mesylate 1 Mg Tablet) 1 mg PO BID [facility] Last Admin: 10/30/21 09:33 Dose: 1 mg Documented By: ALEJANDRA Clopidogrel Bisulfate (Clopidogrel Bisulfate 75 Mg Tablet) 75 mg PO DAILY [facility] Last Admin: 07/29/22 09:31 Dose: 75 mg Documented By: ALEJANDRA Empagliflozin (Empagliflozin 10 Mg Tablet) 10 mg PO DAILY [facility] Last Admin: 10/30/21 09:34 Dose: 10 mg Documented By: ALEJANDRA Enoxaparin Sodium (Enoxaparin Sodium 40 Mg/0.4 Ml Syringe) 40 mg SUBCUT Q24H [facility] Last Admin: 10/29/21 21:11 Dose: 40 mg Documented By: SUKUMAR Gemfibrozil (Gemfibrozil 600 Mg Tablet) 600 mg PO BID [facility] Last Admin: 10/30/21 09:34 Dose: 600 mg Documented By: ALEJANDRA Haloperidol (Haloperidol 0.5 Mg Tablet) 0.5 mg PO BID [facility] Last Admin: 10/30/21 09:34 Dose: 0.5 mg Documented By: ALEJANDRA Haloperidol (Haloperidol 1 Mg Tablet) 1 mg PO BID [facility] Last Admin: 10/30/21 09:34 Dose: 1 mg Documented By: ALEJANDRA Piperacillin Sod/Tazobactam (Sod 4.5 gm/ Sodium Chloride) 100 mls @ 200 mls/hr IV Q6H [facility] Last Infusion: 10/30/21 10:35 Dose: 0 mls/hr Documented By: ALEJANDRA Sodium Chloride (Ns) 1,000 mls @ 100 mls/hr IVCONT .Q10H [facility] Last Admin: 10/30/21 06:01 Dose: 100 mls/hr Documented By: SUKUMAR Vancomycin HCl 1,250 mg/ (Sodium Chloride) 250 mls @ 166.667 mls/hr IV Q12H [facility] Last Infusion: 10/30/21 09:57 Dose: 0 mls/hr Documented By: ALEJANDRA Insulin Glargine (Insulin Glargine,Hum.Rec.Anlog 100 Unit/Ml 10 Ml Vial) 31 unit SUBCUT DAILY [facility] Last Admin: 10/30/21 09:34 Dose: 31 unit Documented By: ALEJANDRA Insulin Glargine (Insulin Glargine,Hum.Rec.Anlog 100 Unit/Ml 10 Ml Vial) 10 unit SUBCUT BEDTIME [facility] Last Admin: 10/29/21 21:59 Dose: 10 unit Documented By: SUKUMAR Lactulose (Lactulose 20 Gm/30 Ml Solution) 60 gm PO TID [facility] Last Admin: 10/30/21 09:34 Dose: 60 gm Documented By: ALEJANDRA Ondansetron HCl (Ondansetron Hcl 4 Mg/2 Ml Vial) 4 mg IVPUSH Q8H PRN PRN Reason: Nausea and Vomiting Oxycodone HCl (Oxycodone Hcl Immed Release 5 Mg Tablet) 5 mg PO Q4H PRN PRN Reason: Pain, Moderate (Pain Scale 4-6 Pharmacy Consult (Consult Rx Perform Med Rec) 1 each MISCELLANE ONCE PRN PRN Reason: Consult order Pharmacy Consult (Consult Rx Vancomycin Dosing) 1 each MISCELLANE DAILY PRN PRN Reason: Consult order Pharmacy Consult (Consult Rx Perform Med Rec) 1 each MISCELLANE ONCE PRN PRN Reason: Consult order Pharmacy Consult (Consult Rx Vancomycin Dosing) 1 each MISCELLANE DAILY PRN PRN Reason: Consult order Propranolol HCl (Propranolol Hcl 10 Mg Tablet) 5 mg PO BID [facility]; Protocol Last Admin: 10/30/21 09:31 Dose: 5 mg Documented By: ALEJANDRA Rifaximin (Rifaximin 550 Mg Tablet) 550 mg PO BID [facility] Last Admin: 10/30/21 09:34 Dose: 550 mg Documented By: ALEJANDRA Senna (Sennosides 8.6 Mg Tablet) 8.6 mg PO Q24H PRN PRN Reason: Constipation Simethicone (Simethicone 80 Mg Tab.Chew) 160 mg PO BID [facility] Last Admin: 10/30/21 09:34 Dose: 160 mg Documented By: ALEJANDRA Sodium Chloride (0.9 % Sodium Chloride Flush 3 Ml Syringe) 3 ml IVFLUSH QSHIFT [facility] Last Admin: 10/30/21 08:21 Dose: Not Given Documented By: ALEJANDRA Non-Admin Reason: IV Running Labs CBC & Chem 7: 10/30/21 05:29 10/30/21 05:29 Labs: Laboratory Results - last 24 hr 10/29/21 10/29/21 10/29/21 15:55 16:29 20:46 MCV MCH MCHC RDW Plt Count MPV Immature Gran % (Auto) Neut % (Auto) Lymph % (Auto) Luce % (Auto) Eos % (Auto) Baso % (Auto) Lymph # (Auto) Luce # (Auto) Eos # (Auto) Baso # (Auto) Abs Immat Gran (auto) Absolute Neuts (auto) Absolute Nucleated RBC Nucleated RBC % (auto) Anion Gap Estim Creat Clear Calc Estimated GFR POC Glucose 100 164 H Fasting Glucose Calcium Total Bilirubin AST ALT Alkaline Phosphatase Total Protein Albumin Random Vancomycin 5.3 L 10/30/21 10/30/21 10/30/21 05:29 05:29 07:23 MCV 84.2 MCH 27.8 MCHC 33.0 RDW 12.7 Plt Count 324 MPV 10.6 Immature Gran % (Auto) 0.5 H Neut % (Auto) 71.1 Lymph % (Auto) 15.8 L Luce % (Auto) 8.9 Eos % (Auto) 3.3 Baso % (Auto) 0.4 Lymph # (Auto) 1.2 Luce # (Auto) 0.7 Eos # (Auto) 0.2 Baso # (Auto) 0.0 Abs Immat Gran (auto) 0.04 H Absolute Neuts (auto) 5.2 Absolute Nucleated RBC 0.000 Nucleated RBC % (auto) 0.0 Anion Gap 15 Estim Creat Clear Calc 122.5 Estimated GFR > 60 POC Glucose 160 H Fasting Glucose 216 H D Calcium 8.4 D Total Bilirubin 0.2 AST 10 ALT 6 Alkaline Phosphatase 75 Total Protein 6.4 L Albumin 3.6 Random Vancomycin Microbiology Microbiology Results: Microbiology 10/27/21 17:29 Blood Culture - Preliminary Blood - Venous No growth after 48 hours. 10/27/21 14:51 Blood Culture - Preliminary Blood - Venous No growth after 48 hours. Assessment and Plan (1) Osteomyelitis of toe: Status: Acute (2) Anoxic brain damage: Status: Acute (3) Diabetes: Status: Acute Plan 51[facility] 3[facility]. X-rays inconclusive for osteomyelitis however highly suggestive. 1. Osteomyelitis -vancomycin/Zosyn (4) -discussed with vascular surgery; for right 3rd toe amp on 11/02 -depending on results may not need long-term antibiotics. Will hold on PICC at this time 2. Anoxic brain injury/dementia -continue all outpatient therapies as per [facility] -adjust as clinically indicated 3. Diabetes type 2 -acceptable control on current therapies -adjust as indicated 4. Encephalopathy -continue rifimixan/lactulose as per [facility] Full code Lovenox Patient requires ongoing hospitalization for IV antibiotics to treat necrotic toe pending amputation 11/02/2021 Quality Stroke Does the patient have a stroke diagnosis?: No VTE Prior VTE?: No VTE Risk Level:: Medical - moderate - high VTE Device Contraindication: Treatment Not Indicated VTE Drug Contraindication: N/A - Med Ordered
[2021-10-30 11:22] LABS: Glucose, Whole Blood 234 mg/dL (60-115)
[2021-10-30 16:11] LABS: Vancomycin Random 8.8 mcg/mL (15-20)
[2021-10-30 16:15] LABS: Glucose, Whole Blood 225 mg/dL (60-115)
[2021-10-30 20:36] LABS: Glucose, Whole Blood 290 mg/dL (60-115)
[2021-10-30] MEDS: Insulin Glargine,Hum.rec.anlog 100 UNIT/ML 10 ML VIAL 10 UNIT SUBCUT (21:06)
[2021-10-30] MEDS: Enoxaparin Sodium 40 MG/0.4 ML SYRINGE SUBCUT (21:07)
[2021-10-31 04:00] VITALS: BP 146/71; PULSE 83; RESP 14; TEMP 37.2; O2SAT 95
[2021-10-31] MEDS: Piperacillin Sodium/Tazobactam 4.5 GM in 0.9 % Sodium Chloride 100 ML IV ×3 (04:04→15:38)
[2021-10-31] MEDS: vancomycin HCL 1,250 MG in 0.9 % Sodium Chloride 250 ML 166.67 MG IV ×2 (04:37→16:59)
[2021-10-31 07:15] LABS: Estimated Glomerular Filt Rate > 60
[2021-10-31 07:22] VITALS: BP 152/73; PULSE 70; RESP 16; TEMP 36.4; O2SAT 99
[2021-10-31 07:45] LABS: Glucose, Whole Blood 187 mg/dL (60-115)
[2021-10-31] MEDS: Clopidogrel Bisulfate 75 MG TABLET PO (09:37)
[2021-10-31] MEDS: rifAXIMin 550 MG TABLET PO ×2 (09:37→20:18)
[2021-10-31] MEDS: Empagliflozin 10 MG TABLET PO (09:38)
[2021-10-31] MEDS: HaloperidoL 1 MG TABLET PO ×2 (09:38→20:18)
[2021-10-31] MEDS: Simethicone 80 MG TAB.CHEW 160 MG PO ×2 (09:38→20:19)
[2021-10-31] MEDS: Ascorbic Acid 500 MG TABLET PO (09:38)
[2021-10-31] MEDS: Benztropine Mesylate 0.5 MG TABLET PO ×2 (09:38→20:18)
[2021-10-31] MEDS: gemfibroziL 600 MG TABLET PO ×2 (09:38→20:18)
[2021-10-31] MEDS: HaloperidoL 0.5 MG TABLET PO ×2 (09:38→20:18)
[2021-10-31] MEDS: Benztropine Mesylate 1 MG TABLET PO ×2 (09:38→20:18)
[2021-10-31] MEDS: Aspirin 81 MG TAB.CHEW PO (09:38)
[2021-10-31] MEDS: Propranolol HCL 10 MG TABLET 5 MG PO ×2 (09:39→20:17)
[2021-10-31] MEDS: Lactulose 20 GM/30 ML SOLUTION 60 GM PO ×3 (09:40→20:16)
[2021-10-31] MEDS: Insulin Glargine,Hum.rec.anlog 100 UNIT/ML 10 ML VIAL 31 UNIT SUBCUT (09:40)
[2021-10-31] MEDS: 0.9 % Sodium Chloride 1,000 ML 100 ML IVCONT (09:41)
--- NOTE | 2021-10-31 10:44 | P.PNIM_ITS ---
Subjective Subjective Date of Service: 10/31/21 Interval History: f/u osteomylitis no acute complaint Review of Systems Can obtain accurate ROS secondary to dementia Physical Exam Vital Signs: Vital Signs: Last Vital Signs Temp 97.5 F 10/31/21 07:22 Pulse 70 10/31/21 07:22 Resp 16 10/31/21 07:22 BP 152/73 H 10/31/21 07:22 Pulse Ox 99 10/31/21 07:22 O2 Del Method 10/31/21 07:22 BMI result Body Mass Index 25.8 Const: Other: Awake confused at baseline Resp: Other: Clear to auscultation bilaterally no rales rhonchi or wheezes Cardio: Other: No S4; positive S1-S2; no S3 murmurs rubs or gallops GI: Other: Soft nontender nondistended normoactive bowel sounds Extrem: Other: See admission photo for details Objective Data Active Medications Acetaminophen (Acetaminophen 325 Mg Tablet) 650 mg PO Q6H PRN PRN Reason: Pain, Mild (Pain Scale 1-3) Last Admin: 10/29/21 19:20 Dose: 650 mg Documented By: SUKUMAR Acetaminophen (Acetaminophen 325 Mg Tablet) 650 mg PO Q6H PRN PRN Reason: Pain, Mild (Pain Scale 1-3) Al Hydroxide/Mg Hydroxide (Magnesium Hydrox/Alum Hydrox 30 Ml Oral.Susp) 30 ml PO Q4H PRN PRN Reason: Indigestion Ascorbic Acid (Ascorbic Acid 500 Mg Tablet) 500 mg PO DAILY [facility] Last Admin: 10/31/21 09:38 Dose: 500 mg Documented By: MARA Aspirin (Aspirin 81 Mg Tab.Chew) 81 mg PO DAILY [facility] Last Admin: 10/31/21 09:38 Dose: 81 mg Documented By: MARA Benztropine Mesylate (Benztropine Mesylate 0.5 Mg Tablet) 0.5 mg PO BID [facility] Last Admin: 10/31/21 09:38 Dose: 0.5 mg Documented By: MARA Benztropine Mesylate (Benztropine Mesylate 1 Mg Tablet) 1 mg PO BID [facility] Last Admin: 10/31/21 09:38 Dose: 1 mg Documented By: MARA Clopidogrel Bisulfate (Clopidogrel Bisulfate 75 Mg Tablet) 75 mg PO DAILY [facility] Last Admin: 10/31/21 09:37 Dose: 75 mg Documented By: MARA Empagliflozin (Empagliflozin 10 Mg Tablet) 10 mg PO DAILY [facility] Last Admin: 10/31/21 09:38 Dose: 10 mg Documented By: MARA Enoxaparin Sodium (Enoxaparin Sodium 40 Mg/0.4 Ml Syringe) 40 mg SUBCUT Q24H [facility] Last Admin: 10/30/21 21:07 Dose: 40 mg Documented By: PAYTON Gemfibrozil (Gemfibrozil 600 Mg Tablet) 600 mg PO BID [facility] Last Admin: 10/31/21 09:38 Dose: 600 mg Documented By: MARA Haloperidol (Haloperidol 0.5 Mg Tablet) 0.5 mg PO BID [facility] Last Admin: 10/31/21 09:38 Dose: 0.5 mg Documented By: MARA Haloperidol (Haloperidol 1 Mg Tablet) 1 mg PO BID [facility] Last Admin: 10/31/21 09:38 Dose: 1 mg Documented By: MARA Piperacillin Sod/Tazobactam (Sod 4.5 gm/ Sodium Chloride) 100 mls @ 200 mls/hr IV Q6H [facility] Last Infusion: 10/31/21 10:29 Dose: 0 mls/hr Documented By: MARA Vancomycin HCl 1,250 mg/ (Sodium Chloride) 250 mls @ 166.667 mls/hr IV Q12H [facility] Last Infusion: 10/31/21 06:10 Dose: 0 mls/hr Documented By: PAYTON Insulin Glargine (Insulin Glargine,Hum.Rec.Anlog 100 Unit/Ml 10 Ml Vial) 31 unit SUBCUT DAILY [facility] Last Admin: 10/31/21 09:40 Dose: 31 unit Documented By: MARA Insulin Glargine (Insulin Glargine,Hum.Rec.Anlog 100 Unit/Ml 10 Ml Vial) 10 unit SUBCUT BEDTIME [facility] Last Admin: 10/30/21 21:06 Dose: 10 unit Documented By: PAYTON Lactulose (Lactulose 20 Gm/30 Ml Solution) 60 gm PO TID [facility] Last Admin: 10/31/21 09:40 Dose: 60 gm Documented By: MARA Ondansetron HCl (Ondansetron Hcl 4 Mg/2 Ml Vial) 4 mg IVPUSH Q8H PRN PRN Reason: Nausea and Vomiting Oxycodone HCl (Oxycodone Hcl Immed Release 5 Mg Tablet) 5 mg PO Q4H PRN PRN Reason: Pain, Moderate (Pain Scale 4-6 Pharmacy Consult (Consult Rx Perform Med Rec) 1 each MISCELLANE ONCE PRN PRN Reason: Consult order Pharmacy Consult (Consult Rx Vancomycin Dosing) 1 each MISCELLANE DAILY PRN PRN Reason: Consult order Pharmacy Consult (Consult Rx Perform Med Rec) 1 each MISCELLANE ONCE PRN PRN Reason: Consult order Pharmacy Consult (Consult Rx Vancomycin Dosing) 1 each MISCELLANE DAILY PRN PRN Reason: Consult order Propranolol HCl (Propranolol Hcl 10 Mg Tablet) 5 mg PO BID [facility]; Protocol Last Admin: 10/31/21 09:39 Dose: 5 mg Documented By: MARA Rifaximin (Rifaximin 550 Mg Tablet) 550 mg PO BID [facility] Last Admin: 10/31/21 09:37 Dose: 550 mg Documented By: MARA Senna (Sennosides 8.6 Mg Tablet) 8.6 mg PO Q24H PRN PRN Reason: Constipation Simethicone (Simethicone 80 Mg Tab.Chew) 160 mg PO BID [facility] Last Admin: 10/31/21 09:38 Dose: 160 mg Documented By: MARA Sodium Chloride (0.9 % Sodium Chloride Flush 3 Ml Syringe) 3 ml IVFLUSH QSHIFT [facility] Last Admin: 10/31/21 07:13 Dose: Not Given Documented By: MARA Non-Admin Reason: IV Running Labs CBC & Chem 7: 10/30/21 05:29 10/31/21 06:39 Labs: Laboratory Results - last 24 hr 10/30/21 10/30/21 10/30/21 11:14 15:29 16:11 Estim Creat Clear Calc Estimated GFR POC Glucose 234 H 225 H Random Vancomycin 8.8 L 10/30/21 10/31/21 10/31/21 20:33 06:39 07:21 Estim Creat Clear Calc 140.0 Estimated GFR > 60 POC Glucose 290 H 187 H Random Vancomycin Assessment and Plan (1) Osteomyelitis of toe: Status: Acute (2) Anoxic brain damage: Status: Acute (3) Diabetes: Status: Acute Plan 51-year-old male from [facility] found to have necrotic left 3rd toe. X-rays inconclusive for osteomyelitis however highly suggestive. 1. Osteomyelitis -vancomycin/Zosyn (5), adjustment by pharmacy -For right 3rd toe amp on 11/02 -depending on results may not need long-term antibiotics so hold PICC at this time 2. Anoxic brain injury/dementia -continue all outpatient therapies as per [facility], -adjust as clinically indicated 3. Diabetes type 2 -acceptable control on current therapies -adjust as indicated 4. Encephalopathy -continue rifimixan/lactulose as per [facility] Full code Lovenox Patient requires ongoing hospitalization for IV antibiotics to treat necrotic toe pending amputation 11/02/2021 Quality Stroke Does the patient have a stroke diagnosis?: No VTE Prior VTE?: No VTE Risk Level:: Medical - moderate - high VTE Device Contraindication: Treatment Not Indicated VTE Drug Contraindication: N/A - Med Ordered
[2021-10-31 11:35] LABS: Glucose, Whole Blood 258 mg/dL (60-115)
[2021-10-31 12:00] VITALS: BP 161/74; PULSE 89; RESP 20; TEMP 36.9
[2021-10-31 15:30] LABS: Vancomycin Random 13.7 mcg/mL (15-20)
--- NOTE | 2021-10-31 15:41 | HE.PHANOTE ---
Continue with vanco 1250 mg q12h
[2021-10-31 15:59] LABS: Glucose, Whole Blood 220 mg/dL (60-115)
--- NOTE | 2021-10-31 18:36 | PC.NURSE ---
Pt IV access infiltrated, multiple unsuccessful attempts to obtain IV access, Dr Hicks made aware. Per Dr Hicks will attempt another form of IV access tomorrow. Hold on IV antibiotics for tonight.
--- NOTE | 2021-10-31 18:40 | HE.PHANOTE ---
Spoke to Lucia; pt's line infiltrated and he did not get entire dose of 1700 vanco; pt is difficult stick so per Lucia Romero aware and will reassess tomorrow.
[2021-10-31 19:15] VITALS: BP 132/62; PULSE 84; RESP 19; TEMP 37; O2SAT 100
[2021-10-31 19:59] LABS: Glucose, Whole Blood 280 mg/dL (60-115)
[2021-10-31] MEDS: Enoxaparin Sodium 40 MG/0.4 ML SYRINGE SUBCUT (20:18)
[2021-10-31] MEDS: Insulin Glargine,Hum.rec.anlog 100 UNIT/ML 10 ML VIAL 10 UNIT SUBCUT (20:19)
[2021-10-31 23:25] VITALS: BP 182/85; PULSE 87; RESP 14; TEMP 36; O2SAT 99
[2021-11-01 03:36] VITALS: BP 134/77; PULSE 82; RESP 14; TEMP 36.5; O2SAT 98
[2021-11-01 07:20] VITALS: BP 161/101; PULSE 98; RESP 18; TEMP 37.6; O2SAT 97
[2021-11-01 07:26] LABS: Creatinine Clr Calc Pharmacy 120.8; Estimated Glomerular Filt Rate > 60
[2021-11-01 07:39] LABS: Glucose, Whole Blood 205 mg/dL (60-115)
--- NOTE | 2021-11-01 08:30 | HO.PM.IMPN ---
Subjective Subjective Date of Service: 11/01/21 Interval History: f/u osteomylitis no acute complaint Review of Systems Can obtain accurate ROS secondary to dementia Physical Exam Vital Signs: Vital Signs: Last Vital Signs Temp 99.7 F 11/01/21 07:20 Pulse 98 11/01/21 07:20 Resp 18 11/01/21 07:20 BP 161/101 H 11/01/21 07:20 Pulse Ox 97 11/01/21 07:20 O2 Del Method 11/01/21 07:20 BMI result Body Mass Index 25.8 Const: Other: Awake confused at baseline Resp: Other: Clear to auscultation bilaterally no rales rhonchi or wheezes Cardio: Other: No S4; positive S1-S2; no S3 murmurs rubs or gallops GI: Other: Soft nontender nondistended normoactive bowel sounds Extrem: Other: See admission photo for details Objective Data Active Medications Acetaminophen (Acetaminophen 325 Mg Tablet) 650 mg PO Q6H PRN PRN Reason: Pain, Mild (Pain Scale 1-3) Last Admin: 10/29/21 19:20 Dose: 650 mg Documented By: SUKUMAR Acetaminophen (Acetaminophen 325 Mg Tablet) 650 mg PO Q6H PRN PRN Reason: Pain, Mild (Pain Scale 1-3) Al Hydroxide/Mg Hydroxide (Magnesium Hydrox/Alum Hydrox 30 Ml Oral.Susp) 30 ml PO Q4H PRN PRN Reason: Indigestion Ascorbic Acid (Ascorbic Acid 500 Mg Tablet) 500 mg PO DAILY [facility] Last Admin: 10/31/21 09:38 Dose: 500 mg Documented By: MARA Aspirin (Aspirin 81 Mg Tab.Chew) 81 mg PO DAILY [facility] Last Admin: 10/31/21 09:38 Dose: 81 mg Documented By: MARA Benztropine Mesylate (Benztropine Mesylate 0.5 Mg Tablet) 0.5 mg PO BID [facility] Last Admin: 10/31/21 20:18 Dose: 0.5 mg Documented By: PAYTON Benztropine Mesylate (Benztropine Mesylate 1 Mg Tablet) 1 mg PO BID [facility] Last Admin: 10/31/21 20:18 Dose: 1 mg Documented By: PAYTON Clopidogrel Bisulfate (Clopidogrel Bisulfate 75 Mg Tablet) 75 mg PO DAILY [facility] Last Admin: 10/31/21 09:37 Dose: 75 mg Documented By: MARA Empagliflozin (Empagliflozin 10 Mg Tablet) 10 mg PO DAILY [facility] Last Admin: 10/31/21 09:38 Dose: 10 mg Documented By: MARA Enoxaparin Sodium (Enoxaparin Sodium 40 Mg/0.4 Ml Syringe) 40 mg SUBCUT Q24H [facility] Last Admin: 10/31/21 20:18 Dose: 40 mg Documented By: PAYTON Gemfibrozil (Gemfibrozil 600 Mg Tablet) 600 mg PO BID [facility] Last Admin: 10/31/21 20:18 Dose: 600 mg Documented By: PAYTON Haloperidol (Haloperidol 0.5 Mg Tablet) 0.5 mg PO BID [facility] Last Admin: 10/31/21 20:18 Dose: 0.5 mg Documented By: PAYTON Haloperidol (Haloperidol 1 Mg Tablet) 1 mg PO BID [facility] Last Admin: 10/31/21 20:18 Dose: 1 mg Documented By: PAYTON Piperacillin Sod/Tazobactam (Sod 4.5 gm/ Sodium Chloride) 100 mls @ 200 mls/hr IV Q6H [facility] Last Admin: 11/01/21 02:44 Dose: Not Given Documented By: PAYTON Non-Admin Reason: no iv md aware Vancomycin HCl 1,250 mg/ (Sodium Chloride) 250 mls @ 166.667 mls/hr IV Q12H [facility] Last Admin: 11/01/21 02:44 Dose: Not Given Documented By: PAYTON Non-Admin Reason: no iv md aware Insulin Glargine (Insulin Glargine,Hum.Rec.Anlog 100 Unit/Ml 10 Ml Vial) 31 unit SUBCUT DAILY [facility] Last Admin: 10/31/21 09:40 Dose: 31 unit Documented By: MARA Insulin Glargine (Insulin Glargine,Hum.Rec.Anlog 100 Unit/Ml 10 Ml Vial) 10 unit SUBCUT BEDTIME [facility] Last Admin: 10/31/21 20:19 Dose: 10 unit Documented By: PAYTON Lactulose (Lactulose 20 Gm/30 Ml Solution) 60 gm PO TID [facility] Last Admin: 10/31/21 20:16 Dose: 60 gm Documented By: PAYTON Ondansetron HCl (Ondansetron Hcl 4 Mg/2 Ml Vial) 4 mg IVPUSH Q8H PRN PRN Reason: Nausea and Vomiting Oxycodone HCl (Oxycodone Hcl Immed Release 5 Mg Tablet) 5 mg PO Q4H PRN PRN Reason: Pain, Moderate (Pain Scale 4-6 Pharmacy Consult (Consult Rx Perform Med Rec) 1 each MISCELLANE ONCE PRN PRN Reason: Consult order Pharmacy Consult (Consult Rx Vancomycin Dosing) 1 each MISCELLANE DAILY PRN PRN Reason: Consult order Pharmacy Consult (Consult Rx Perform Med Rec) 1 each MISCELLANE ONCE PRN PRN Reason: Consult order Pharmacy Consult (Consult Rx Vancomycin Dosing) 1 each MISCELLANE DAILY PRN PRN Reason: Consult order Propranolol HCl (Propranolol Hcl 10 Mg Tablet) 5 mg PO BID [facility]; Protocol Last Admin: 10/31/21 20:17 Dose: 5 mg Documented By: PAYTON Rifaximin (Rifaximin 550 Mg Tablet) 550 mg PO BID [facility] Last Admin: 10/31/21 20:18 Dose: 550 mg Documented By: PAYTON Senna (Sennosides 8.6 Mg Tablet) 8.6 mg PO Q24H PRN PRN Reason: Constipation Simethicone (Simethicone 80 Mg Tab.Chew) 160 mg PO BID [facility] Last Admin: 10/31/21 20:19 Dose: 160 mg Documented By: PAYTON Sodium Chloride (0.9 % Sodium Chloride Flush 3 Ml Syringe) 3 ml IVFLUSH QSHIFT [facility] Last Admin: 10/31/21 20:54 Dose: Not Given Documented By: PAYTON Non-Admin Reason: No Access Labs CBC & Chem 7: 10/30/21 05:29 11/01/21 06:02 Labs: Laboratory Results - last 24 hr 10/31/21 10/31/21 10/31/21 11:30 14:57 15:04 Estim Creat Clear Calc Estimated GFR POC Glucose 258 H 220 H Random Vancomycin 13.7 L 10/31/21 11/01/21 11/01/21 19:41 06:02 07:25 Estim Creat Clear Calc 120.8 Estimated GFR > 60 POC Glucose 280 H 205 H Random Vancomycin Assessment and Plan (1) Osteomyelitis of toe: Status: Acute (2) Anoxic brain damage: Status: Acute (3) Diabetes: Status: Acute Plan 51-year-old male from [facility] found to have necrotic left 3rd toe. X-rays inconclusive for osteomyelitis however highly suggestive. 1. Osteomyelitis -vancomycin/Zosyn (5), adjustment by pharmacy--lost IV access overnight, will reattempt today if not will add oral Doxy and IM Ceftriaxone -For right 3rd toe amp on 11/02 -depending on results may not need long-term antibiotics so hold PICC at this time 2. Anoxic brain injury/dementia -continue all outpatient therapies as per [facility], -adjust as clinically indicated 3. Diabetes type 2 -acceptable control on current therapies -adjust as indicated 4. Encephalopathy -continue rifimixan/lactulose as per [facility] Full code Lovenox Patient requires ongoing hospitalization for IV antibiotics to treat necrotic toe pending amputation 11/02/2021 Quality Stroke Does the patient have a stroke diagnosis?: No VTE Prior VTE?: No VTE Risk Level:: Medical - moderate - high VTE Device Contraindication: Treatment Not Indicated VTE Drug Contraindication: N/A - Med Ordered
[2021-11-01] MEDS: Insulin Glargine,Hum.rec.anlog 100 UNIT/ML 10 ML VIAL 31 UNIT SUBCUT (08:49)
[2021-11-01] MEDS: gemfibroziL 600 MG TABLET PO ×2 (08:52→19:38)
[2021-11-01] MEDS: Clopidogrel Bisulfate 75 MG TABLET PO (08:52)
[2021-11-01] MEDS: Aspirin 81 MG TAB.CHEW PO (08:52)
[2021-11-01] MEDS: Propranolol HCL 10 MG TABLET 5 MG PO ×2 (08:53→19:39)
[2021-11-01] MEDS: Benztropine Mesylate 1 MG TABLET PO ×2 (08:53→19:39)
[2021-11-01] MEDS: Ascorbic Acid 500 MG TABLET PO (08:53)
[2021-11-01] MEDS: Benztropine Mesylate 0.5 MG TABLET PO ×2 (08:53→19:38)
[2021-11-01] MEDS: rifAXIMin 550 MG TABLET PO ×2 (08:53→19:38)
[2021-11-01] MEDS: Simethicone 80 MG TAB.CHEW 160 MG PO ×2 (08:54→19:37)
[2021-11-01] MEDS: HaloperidoL 0.5 MG TABLET PO ×2 (08:54→19:38)
[2021-11-01] MEDS: Lactulose 20 GM/30 ML SOLUTION 60 GM PO ×3 (08:54→19:36)
[2021-11-01] MEDS: HaloperidoL 1 MG TABLET PO ×2 (08:54→19:38)
[2021-11-01] MEDS: Empagliflozin 10 MG TABLET PO (08:54)
[2021-11-01] MEDS: Piperacillin Sodium/Tazobactam 4.5 GM in 0.9 % Sodium Chloride 100 ML IV ×3 (10:48→19:43)
[2021-11-01 10:57] VITALS: BP 131/70; PULSE 91; RESP 18; TEMP 36.6; O2SAT 96
[2021-11-01 11:19] LABS: Glucose, Whole Blood 323 mg/dL (60-115)
--- NOTE | 2021-11-01 13:49 | HE.PHANOTE ---
PM dose on 10/31 infiltrated and pt lost IV access. Patient has a new IV and will restart vanco at 1400, next level to be drawn 11/02@1200
[2021-11-01] MEDS: vancomycin HCL 1,250 MG in 0.9 % Sodium Chloride 250 ML 166.67 MG IV (14:02)
[2021-11-01 14:46] VITALS: BP 145/67; PULSE 90; RESP 18; TEMP 36.3; O2SAT 99
[2021-11-01] MEDS: 0.9 % Sodium Chloride Flush 3 ML SYRINGE IVFLUSH ×2 (15:19→19:43)
[2021-11-01 15:49] LABS: Glucose, Whole Blood 266 mg/dL (60-115)
[2021-11-01 19:16] VITALS: BP 148/76; PULSE 97; RESP 17; TEMP 36.6; O2SAT 99
[2021-11-01] MEDS: Insulin Glargine,Hum.rec.anlog 100 UNIT/ML 10 ML VIAL 10 UNIT SUBCUT (19:39)
[2021-11-01] MEDS: Enoxaparin Sodium 40 MG/0.4 ML SYRINGE SUBCUT (19:40)
[2021-11-01 19:55] LABS: Glucose, Whole Blood 318 mg/dL (60-115)
[2021-11-02] VITALS (13 sets, daily range): BP systolic 89–177; BP diastolic 56–93; PULSE 65–98; RESP 10–21; TEMP 35.8–37.1; O2SAT 95–100
[2021-11-02] MEDS: oxyCODONE HCl Immed Release 5 MG TABLET PO ×2 (03:25→09:31)
[2021-11-02] MEDS: Piperacillin Sodium/Tazobactam 4.5 GM in 0.9 % Sodium Chloride 100 ML IV ×4 (03:27→20:26)
[2021-11-02] MEDS: vancomycin HCL 1,250 MG in 0.9 % Sodium Chloride 250 ML 166.67 MG IV ×2 (03:58→15:37)
[2021-11-02 07:42] LABS: Glucose, Whole Blood 171 mg/dL (60-115)
[2021-11-02] MEDS: gemfibroziL 600 MG TABLET PO ×2 (09:10→20:25)
[2021-11-02] MEDS: 0.9 % Sodium Chloride Flush 3 ML SYRINGE IVFLUSH (09:10)
[2021-11-02] MEDS: HaloperidoL 0.5 MG TABLET PO ×2 (09:10→20:25)
[2021-11-02] MEDS: Benztropine Mesylate 1 MG TABLET PO ×2 (09:10→20:25)
[2021-11-02] MEDS: Aspirin 81 MG TAB.CHEW PO (09:11)
[2021-11-02] MEDS: Simethicone 80 MG TAB.CHEW 160 MG PO ×2 (09:11→20:25)
[2021-11-02] MEDS: Lactulose 20 GM/30 ML SOLUTION 60 GM PO ×3 (09:11→20:26)
[2021-11-02] MEDS: Empagliflozin 10 MG TABLET PO (09:11)
[2021-11-02] MEDS: Benztropine Mesylate 0.5 MG TABLET PO ×2 (09:11→20:25)
[2021-11-02] MEDS: rifAXIMin 550 MG TABLET PO ×2 (09:11→20:25)
[2021-11-02] MEDS: Ascorbic Acid 500 MG TABLET PO (09:11)
[2021-11-02] MEDS: Clopidogrel Bisulfate 75 MG TABLET PO (09:11)
[2021-11-02] MEDS: HaloperidoL 1 MG TABLET PO ×2 (09:11→20:25)
[2021-11-02] MEDS: Propranolol HCL 10 MG TABLET 5 MG PO ×2 (09:12→20:25)
[2021-11-02] MEDS: Acetaminophen 325 MG TABLET 650 MG PO (09:31)
[2021-11-02 10:05] LABS: Creatinine Clr Calc Pharmacy 120.8; Estimated Glomerular Filt Rate > 60
[2021-11-02] MEDS: Insulin Glargine,Hum.rec.anlog 100 UNIT/ML 10 ML VIAL 10 UNIT SUBCUT ×2 (10:16→20:26)
--- NOTE | 2021-11-02 10:26 | P.CONAN_ITS ---
HPI - Anesthesia Eval Consult details Narrative: 51 M for left 3 rd toe amputation TBI , s/p trach in the past , DM , smoker, OM , encephalopathy . Case discussed with , unable to get in touch with the guardian . We were able to contact the daughter who gave consent . Also per surgeon , he spoke with the guardian last week who had stated to get consent from daughter . As per surgeon this is emergent , so will proceed . PMF Active Problems Active Problems: All Active Problems (Updated 10/28/21 @ 12:22 by Robbin Lee MD) PAD (peripheral artery disease) (Acute) Encephalopathy (Acute) Anoxic brain damage (Acute) Diabetes (Acute) Osteomyelitis of toe (Acute) Traumatic closed displaced fracture of tibial plafond with malunion of left lower extremity (Acute) Fracture of left tibial plafond without involvement of fibula (Acute) Past Medical History Medical History (Updated 10/28/21 @ 12:22 by Robbin Lee MD) Anoxic brain damage Diabetes Dysphagia Encephalopathy Hyperlipemia Family History Family history of problems with anesthesia: No Surgical History History of Problems with Anesthesia: No Social History Social History Household Members: Other Household Members Other:: care one Housing: Care Home Do you presently have visiting nurse or other home services: No Alcohol intake: unknown Patient Tobacco Use Status: Former Tobacco user Tobacco use type: Cigarette Cigarette Packs Per Day: 1 Cigarettes Per Day: 20.0 Second Hand Smoke Exposure: Yes service: No Current occupational status: disabled Meds Allergies Allergy/AdvReac Type Severity Reaction Status Date / Time No Known Allergies Allergy Verified 07/07/21 09:53 [No Known Allergies*] Active Medications: Current Medications Acetaminophen (Acetaminophen 325 Mg Tablet) 650 mg PO Q6H PRN PRN Reason: Pain, Mild (Pain Scale 1-3) Last Admin: 11/02/21 09:31 Dose: 650 mg Acetaminophen (Acetaminophen 325 Mg Tablet) 650 mg PO Q6H PRN PRN Reason: Pain, Mild (Pain Scale 1-3) Al Hydroxide/Mg Hydroxide (Magnesium Hydrox/Alum Hydrox 30 Ml Oral.Susp) 30 ml PO Q4H PRN PRN Reason: Indigestion Ascorbic Acid (Ascorbic Acid 500 Mg Tablet) 500 mg PO DAILY TIM Last Admin: 11/02/21 09:11 Dose: 500 mg Aspirin (Aspirin 81 Mg Tab.Chew) 81 mg PO DAILY [facility] Last Admin: 11/02/21 09:11 Dose: 81 mg Benztropine Mesylate (Benztropine Mesylate 0.5 Mg Tablet) 0.5 mg PO BID [facility] Last Admin: 11/02/21 09:11 Dose: 0.5 mg Benztropine Mesylate (Benztropine Mesylate 1 Mg Tablet) 1 mg PO BID TIM Last Admin: 11/02/21 09:10 Dose: 1 mg Clopidogrel Bisulfate (Clopidogrel Bisulfate 75 Mg Tablet) 75 mg PO DAILY [facility] Last Admin: 11/02/21 09:11 Dose: 75 mg Empagliflozin (Empagliflozin 10 Mg Tablet) 10 mg PO DAILY [facility] Last Admin: 11/02/21 09:11 Dose: 10 mg Enoxaparin Sodium (Enoxaparin Sodium 40 Mg/0.4 Ml Syringe) 40 mg SUBCUT Q24H [facility] Last Admin: 11/01/21 19:40 Dose: 40 mg Gemfibrozil (Gemfibrozil 600 Mg Tablet) 600 mg PO BID [facility] Last Admin: 11/02/21 09:10 Dose: 600 mg Haloperidol (Haloperidol 0.5 Mg Tablet) 0.5 mg PO BID TIM Last Admin: 11/02/21 09:10 Dose: 0.5 mg Haloperidol (Haloperidol 1 Mg Tablet) 1 mg PO BID [facility] Last Admin: 11/02/21 09:11 Dose: 1 mg Piperacillin Sod/Tazobactam (Sod 4.5 gm/ Sodium Chloride) 100 mls @ 200 mls/hr IV Q6H [facility] Last Infusion: 11/02/21 10:08 Dose: Infused Vancomycin HCl 1,250 mg/ (Sodium Chloride) 250 mls @ 166.667 mls/hr IV Q12H [facility] Last Infusion: 11/02/21 05:30 Dose: Infused Insulin Glargine (Insulin Glargine,Hum.Rec.Anlog 100 Unit/Ml 10 Ml Vial) 31 unit SUBCUT DAILY [facility] Last Admin: 11/02/21 09:48 Dose: Not Given Insulin Glargine (Insulin Glargine,Hum.Rec.Anlog 100 Unit/Ml 10 Ml Vial) 10 unit SUBCUT BEDTIME [facility] Last Admin: 11/01/21 19:39 Dose: 10 unit Lactulose (Lactulose 20 Gm/30 Ml Solution) 60 gm PO TID [facility] Last Admin: 11/02/21 09:11 Dose: 60 gm Ondansetron HCl (Ondansetron Hcl 4 Mg/2 Ml Vial) 4 mg IVPUSH Q8H PRN PRN Reason: Nausea and Vomiting Oxycodone HCl (Oxycodone Hcl Immed Release 5 Mg Tablet) 5 mg PO Q4H PRN PRN Reason: Pain, Moderate (Pain Scale 4-6 Last Admin: 11/02/21 09:31 Dose: 5 mg Pharmacy Consult (Consult Rx Perform Med Rec) 1 each MISCELLANE ONCE PRN PRN Reason: Consult order Pharmacy Consult (Consult Rx Vancomycin Dosing) 1 each MISCELLANE DAILY PRN PRN Reason: Consult order Pharmacy Consult (Consult Rx Perform Med Rec) 1 each MISCELLANE ONCE PRN PRN Reason: Consult order Pharmacy Consult (Consult Rx Vancomycin Dosing) 1 each MISCELLANE DAILY PRN PRN Reason: Consult order Propranolol HCl (Propranolol Hcl 10 Mg Tablet) 5 mg PO BID [facility]; Protocol Last Admin: 11/02/21 09:12 Dose: 5 mg Rifaximin (Rifaximin 550 Mg Tablet) 550 mg PO BID [facility] Last Admin: 11/02/21 09:11 Dose: 550 mg Senna (Sennosides 8.6 Mg Tablet) 8.6 mg PO Q24H PRN PRN Reason: Constipation Simethicone (Simethicone 80 Mg Tab.Chew) 160 mg PO BID [facility] Last Admin: 11/02/21 09:11 Dose: 160 mg Sodium Chloride (0.9 % Sodium Chloride Flush 3 Ml Syringe) [facility] Last Admin: 11/02/21 09:10 Dose: 3 ml Home Medications Medication Instructions Recorded Confirmed Last Taken Type acetaminophen 325 mg tablet 650 mg PO Q6H PRN Pain 10/27/21 10/27/21 Unknown History aluminum-mag hydroxide-simethicone 30 ml PO Q4H PRN Indigestion 10/27/21 10/27/21 Unknown History 200 mg-200 mg-20 mg/5 mL oral susp ascorbic acid (vitamin C) 500 mg 500 mg PO DAILY 10/27/21 10/27/21 Unknown History tablet benztropine 0.5 mg tablet 0.5 mg PO BID 10/27/21 10/27/21 Unknown History benztropine 1 mg tablet 1 mg PO BID 10/27/21 10/27/21 Unknown History dapagliflozin 10 mg tablet 10 mg PO DAILY 10/27/21 10/27/21 Unknown History (Farxitx) dulaglutide 1.5 mg/0.5 mL 1.5 mg subcut FR 10/27/21 10/27/21 Unknown History subcutaneous pen injector (Trulicity) gemfibrozil 600 mg tablet 600 mg PO BID 10/27/21 10/27/21 Unknown History haloperidol 0.5 mg tablet 0.5 mg PO BID 10/27/21 10/27/21 Unknown History haloperidol 1 mg tablet 1 mg PO BID 10/27/21 10/27/21 Unknown History insulin detemir U-100 100 unit/mL 45 unit subcut DAILY 10/27/21 10/27/21 Unknown History (3 mL) subcutaneous pen (Levemir FlexTouch U-100 Insulin) insulin detemir U-100 100 unit/mL 15 unit subcut BEDTIME 10/27/21 10/27/21 Unknown History subcutaneous solution (Levemir U-100 Insulin) insulin lispro 100 unit/mL 0 sliding scale dose subcut 10/27/21 10/27/21 Unknown History subcutaneous solution (Humalog USEASDIRECTD U-100 Insulin) lactulose 10 gram/15 mL (15 mL) 90 ml PO TID 10/27/21 10/27/21 Unknown History oral solution lanolin alcohols-mineral 1 appl topical BEDTIME 10/27/21 10/27/21 Unknown History oil-w.petrolatum-ceresin topical cream (Minerin Creme topical) metformin 1,000 mg tablet 1,000 mg PO BID 10/27/21 10/27/21 Unknown History miconazole nitrate 2 % topical 1 appl topical MOWEFR@2100 10/27/21 10/27/21 Unknown History powder (Miconazorb AF) nystatin 100,000 unit/gram topical 1 appl topical Q8H PRN redened 10/27/21 10/27/21 Unknown History powder areas propranolol 10 mg tablet 5 mg PO BID 10/27/21 10/27/21 Unknown History rifaximin 550 mg tablet 550 mg PO BID 10/27/21 10/27/21 Unknown History sennosides 8.6 mg tablet (senna) 8.6 mg PO Q24H PRN Constipation 10/27/21 10/27/21 Unknown History simethicone 80 mg chewable tablet 160 mg PO BID 10/27/21 10/27/21 Unknown History Exam Exam Date and Time: November 02, 2021 1026 Height,Weight and Vital Signs: Height 5 ft 10 in Weight 81.647 kg Last Vital Signs Temp 97.5 F 11/02/21 04:00 Pulse 69 11/02/21 04:00 Resp 18 11/02/21 04:00 BP 175/93 H 11/02/21 04:00 Pulse Ox 99 11/02/21 04:00 O2 Del Method 11/02/21 04:00 Pertinent Lab Results Pertinent Lab Results: Laboratory Tests 10/27/21 10/27/21 10/27/21 13:54 14:12 14:12 WBC RBC Hgb Hct MCV MCH MCHC RDW Plt Count MPV Immature Gran % (Auto) Neut % (Auto) Lymph % (Auto) [place] % (Auto) Eos % (Auto) Baso % (Auto) Lymph # (Auto) [place] # (Auto) Eos # (Auto) Baso # (Auto) Abs Immat Gran (auto) Absolute Neuts (auto) Absolute Nucleated RBC Nucleated RBC % (auto) ESR Sodium 139 Potassium 4.5 Chloride 103 Carbon Dioxide 23 Anion Gap 18 BUN 11 Creatinine 0.67 Estim Creat Clear Calc 131.6 Estimated GFR > 60 POC Glucose Random Glucose 79 Fasting Glucose Lactic Acid 2.1 H* Lactic Acid F/U @ 2Hr Calcium 9.5 Total Bilirubin 0.3 Direct Bilirubin < 0.2 AST 10 ALT 10 Alkaline Phosphatase 90 C-Reactive Protein 10.98 H Total Protein 7.7 Albumin 4.3 Vancomycin Trough Random Vancomycin COVID-19 (NESTOR) Negative COVID-19 Clin Com See Note 10/27/21 10/27/21 10/27/21 14:22 17:29 18:00 WBC 8.9 RBC 5.31 Hgb 14.6 Hct 46.7 MCV 87.9 MCH 27.5 MCHC 31.3 RDW 12.7 Plt Count 342 MPV 10.4 Immature Gran % (Auto) 0.3 Neut % (Auto) 69.5 Lymph % (Auto) 16.9 L [place] % (Auto) 10.5 Eos % (Auto) 2.4 Baso % (Auto) 0.4 Lymph # (Auto) 1.5 [place] # (Auto) 0.9 Eos # (Auto) 0.2 Baso # (Auto) 0.0 Abs Immat Gran (auto) 0.03 Absolute Neuts (auto) 6.2 Absolute Nucleated RBC 0.000 Nucleated RBC % (auto) 0.0 ESR 71 H Sodium Potassium Chloride Carbon Dioxide Anion Gap BUN Creatinine Estim Creat Clear Calc Estimated GFR POC Glucose Random Glucose Fasting Glucose Lactic Acid Lactic Acid F/U @ 2Hr 1.8 Calcium Total Bilirubin Direct Bilirubin AST ALT Alkaline Phosphatase C-Reactive Protein Total Protein Albumin Vancomycin Trough Random Vancomycin COVID-19 ([facility]ST[facility]) COVID-Yieldex 10/27/21 10/28/21 10/28/21 21:58 04:06 04:06 WBC 8.5 RBC 4.84 Hgb 13.3 L Hct 40.7 L MCV 84.1 MCH 27.5 MCHC 32.7 RDW 12.5 Plt Count 385 MPV 10.5 Immature Gran % (Auto) 0.5 H Neut % (Auto) 67.1 Lymph % (Auto) 20.1 [place] % (Auto) 9.2 Eos % (Auto) 2.6 Baso % (Auto) 0.5 Lymph # (Auto) 1.7 [place] # (Auto) 0.8 Eos # (Auto) 0.2 Baso # (Auto) 0.0 Abs Immat Gran (auto) 0.04 H Absolute Neuts (auto) 5.7 Absolute Nucleated RBC 0.000 Nucleated RBC % (auto) 0.0 ESR Sodium 140 Potassium 4.2 Chloride 109 H Carbon Dioxide 21 L Anion Gap 14 BUN 15 Creatinine 0.78 Estim Creat Clear Calc 113.0 Estimated GFR > 60 POC Glucose 172 H Random Glucose Fasting Glucose 153 H Lactic Acid Lactic Acid F/U @ 2Hr Calcium 9.0 Total Bilirubin 0.2 Direct Bilirubin AST 8 ALT 8 Alkaline Phosphatase 82 C-Reactive Protein Total Protein 7.2 Albumin 4.0 Vancomycin Trough Random Vancomycin COVID-19 (NESTOR) COVID-19 Spinal Restoration Com 10/28/21 10/28/21 10/28/21 07:01 12:09 15:52 WBC RBC Hgb Hct MCV MCH MCHC RDW Plt Count MPV Immature Gran % (Auto) Neut % (Auto) Lymph % (Auto) [place] % (Auto) Eos % (Auto) Baso % (Auto) Lymph # (Auto) [place] # (Auto) Eos # (Auto) Baso # (Auto) Abs Immat Gran (auto) Absolute Neuts (auto) Absolute Nucleated RBC Nucleated RBC % (auto) ESR Sodium Potassium Chloride Carbon Dioxide Anion Gap BUN Creatinine Estim Creat Clear Calc Estimated GFR POC Glucose 173 H 166 H 155 H Random Glucose Fasting Glucose Lactic Acid Lactic Acid F/U @ 2Hr Calcium Total Bilirubin Direct Bilirubin AST ALT Alkaline Phosphatase C-Reactive Protein Total Protein Albumin Vancomycin Trough Random Vancomycin COVID-19 (NESTOR) COVID-19 Btiques 10/28/21 10/28/21 10/29/21 16:27 21:02 05:14 WBC RBC Hgb Hct MCV MCH MCHC RDW Plt Count MPV Immature Gran % (Auto) Neut % (Auto) Lymph % (Auto) [place] % (Auto) Eos % (Auto) Baso % (Auto) Lymph # (Auto) [place] # (Auto) Eos # (Auto) Baso # (Auto) Abs Immat Gran (auto) Absolute Neuts (auto) Absolute Nucleated RBC Nucleated RBC % (auto) ESR Sodium 141 Potassium 3.9 Chloride 110 H Carbon Dioxide 21 L Anion Gap 14 BUN 14 Creatinine 0.73 Estim Creat Clear Calc 120.8 Estimated GFR > 60 POC Glucose 131 H Random Glucose Fasting Glucose 112 H Lactic Acid Lactic Acid F/U @ 2Hr Calcium 9.1 Total Bilirubin < 0.2 Direct Bilirubin AST 8 ALT 8 Alkaline Phosphatase 85 C-Reactive Protein Total Protein 7.1 Albumin 4.0 Vancomycin Trough Random Vancomycin 15.4 COVID-19 (NESTOR) COVID-19 Btiques 10/29/21 10/29/21 10/29/21 05:14 07:30 11:07 WBC 6.8 RBC 4.83 Hgb 13.3 L Hct 41.1 L MCV 85.1 MCH 27.5 MCHC 32.4 RDW 12.5 Plt Count 363 MPV 10.5 Immature Gran % (Auto) 0.6 H Neut % (Auto) 64.8 Lymph % (Auto) 20.2 [place] % (Auto) 9.9 Eos % (Auto) 3.8 Baso % (Auto) 0.7 Lymph # (Auto) 1.4 [place] # (Auto) 0.7 Eos # (Auto) 0.3 Baso # (Auto) 0.1 Abs Immat Gran (auto) 0.04 H Absolute Neuts (auto) 4.4 Absolute Nucleated RBC 0.000 Nucleated RBC % (auto) 0.0 ESR Sodium Potassium Chloride Carbon Dioxide Anion Gap BUN Creatinine Estim Creat Clear Calc Estimated GFR POC Glucose 109 92 Random Glucose Fasting Glucose Lactic Acid Lactic Acid F/U @ 2Hr Calcium Total Bilirubin Direct Bilirubin AST ALT Alkaline Phosphatase C-Reactive Protein Total Protein Albumin Vancomycin Trough Random Vancomycin COVID-19 ([facility]ST[facility]) COVID-19 Clin Com 10/29/21 10/29/21 10/29/21 15:55 16:29 20:46 WBC RBC Hgb Hct MCV MCH MCHC RDW Plt Count MPV Immature Gran % (Auto) Neut % (Auto) Lymph % (Auto) [place] % (Auto) Eos % (Auto) Baso % (Auto) Lymph # (Auto) [place] # (Auto) Eos # (Auto) Baso # (Auto) Abs Immat Gran (auto) Absolute Neuts (auto) Absolute Nucleated RBC Nucleated RBC % (auto) ESR Sodium Potassium Chloride Carbon Dioxide Anion Gap BUN Creatinine Estim Creat Clear Calc Estimated GFR POC Glucose 100 164 H Random Glucose Fasting Glucose Lactic Acid Lactic Acid F/U @ 2Hr Calcium Total Bilirubin Direct Bilirubin AST ALT Alkaline Phosphatase C-Reactive Protein Total Protein Albumin Vancomycin Trough Random Vancomycin 5.3 L COVID-19 ([facility]STOR) COVID-19 Spinal Restoration Com 10/30/21 10/30/21 10/30/21 05:29 05:29 07:23 WBC 7.3 RBC 4.61 Hgb 12.8 L Hct 38.8 L MCV 84.2 MCH 27.8 MCHC 33.0 RDW 12.7 Plt Count 324 MPV 10.6 Immature Gran % (Auto) 0.5 H Neut % (Auto) 71.1 Lymph % (Auto) 15.8 L [place] % (Auto) 8.9 Eos % (Auto) 3.3 Baso % (Auto) 0.4 Lymph # (Auto) 1.2 [place] # (Auto) 0.7 Eos # (Auto) 0.2 Baso # (Auto) 0.0 Abs Immat Gran (auto) 0.04 H Absolute Neuts (auto) 5.2 Absolute Nucleated RBC 0.000 Nucleated RBC % (auto) 0.0 ESR Sodium 139 Potassium 3.9 Chloride 107 Carbon Dioxide 21 L Anion Gap 15 BUN 12 Creatinine 0.72 Estim Creat Clear Calc 122.5 Estimated GFR > 60 POC Glucose 160 H Random Glucose Fasting Glucose 216 H D Lactic Acid Lactic Acid F/U @ 2Hr Calcium 8.4 D Total Bilirubin 0.2 Direct Bilirubin AST 10 ALT 6 Alkaline Phosphatase 75 C-Reactive Protein Total Protein 6.4 L Albumin 3.6 Vancomycin Trough Random Vancomycin COVID-19 ([facility]) COVID-19 Clin Com 10/30/21 10/30/21 10/30/21 11:14 15:29 16:11 WBC RBC Hgb Hct MCV MCH MCHC RDW Plt Count MPV Immature Gran % (Auto) Neut % (Auto) Lymph % (Auto) [place] % (Auto) Eos % (Auto) Baso % (Auto) Lymph # (Auto) [place] # (Auto) Eos # (Auto) Baso # (Auto) Abs Immat Gran (auto) Absolute Neuts (auto) Absolute Nucleated RBC Nucleated RBC % (auto) ESR Sodium Potassium Chloride Carbon Dioxide Anion Gap BUN Creatinine Estim Creat Clear Calc Estimated GFR POC Glucose 234 H 225 H Random Glucose Fasting Glucose Lactic Acid Lactic Acid F/U @ 2Hr Calcium Total Bilirubin Direct Bilirubin AST ALT Alkaline Phosphatase C-Reactive Protein Total Protein Albumin Vancomycin Trough Random Vancomycin 8.8 L COVID-19 ([facility]ST[facility]) COVID-19 Btiques 10/30/21 10/31/21 10/31/21 20:33 06:39 07:21 WBC RBC Hgb Hct MCV MCH MCHC RDW Plt Count MPV Immature Gran % (Auto) Neut % (Auto) Lymph % (Auto) [place] % (Auto) Eos % (Auto) Baso % (Auto) Lymph # (Auto) [place] # (Auto) Eos # (Auto) Baso # (Auto) Abs Immat Gran (auto) Absolute Neuts (auto) Absolute Nucleated RBC Nucleated RBC % (auto) ESR Sodium Potassium Chloride Carbon Dioxide Anion Gap BUN Creatinine 0.63 Estim Creat Clear Calc 140.0 Estimated GFR > 60 POC Glucose 290 H 187 H Random Glucose Fasting Glucose Lactic Acid Lactic Acid F/U @ 2Hr Calcium Total Bilirubin Direct Bilirubin AST ALT Alkaline Phosphatase C-Reactive Protein Total Protein Albumin Vancomycin Trough Random Vancomycin COVID-19 ([facility]) COVID-19 Clin Com 10/31/21 10/31/21 10/31/21 11:30 14:57 15:04 WBC RBC Hgb Hct MCV MCH MCHC RDW Plt Count MPV Immature Gran % (Auto) Neut % (Auto) Lymph % (Auto) [place] % (Auto) Eos % (Auto) Baso % (Auto) Lymph # (Auto) [place] # (Auto) Eos # (Auto) Baso # (Auto) Abs Immat Gran (auto) Absolute Neuts (auto) Absolute Nucleated RBC Nucleated RBC % (auto) ESR Sodium Potassium Chloride Carbon Dioxide Anion Gap BUN Creatinine Estim Creat Clear Calc Estimated GFR POC Glucose 258 H 220 H Random Glucose Fasting Glucose Lactic Acid Lactic Acid F/U @ 2Hr Calcium Total Bilirubin Direct Bilirubin AST ALT Alkaline Phosphatase C-Reactive Protein Total Protein Albumin Vancomycin Trough Random Vancomycin 13.7 L COVID-19 ([facility]ST[facility]) COVID-19 Clin Com 10/31/21 11/01/21 11/01/21 19:41 06:02 07:25 WBC RBC Hgb Hct MCV MCH MCHC RDW Plt Count MPV Immature Gran % (Auto) Neut % (Auto) Lymph % (Auto) [place] % (Auto) Eos % (Auto) Baso % (Auto) Lymph # (Auto) [place] # (Auto) Eos # (Auto) Baso # (Auto) Abs Immat Gran (auto) Absolute Neuts (auto) Absolute Nucleated RBC Nucleated RBC % (auto) ESR Sodium Potassium Chloride Carbon Dioxide Anion Gap BUN Creatinine 0.73 Estim Creat Clear Calc 120.8 Estimated GFR > 60 POC Glucose 280 H 205 H Random Glucose Fasting Glucose Lactic Acid Lactic Acid F/U @ 2Hr Calcium Total Bilirubin Direct Bilirubin AST ALT Alkaline Phosphatase C-Reactive Protein Total Protein Albumin Vancomycin Trough Random Vancomycin COVID-19 ([facility]) COVID-19 Clin Com 11/01/21 11/01/21 11/01/21 11:04 15:07 15:38 WBC RBC Hgb Hct MCV MCH MCHC RDW Plt Count MPV Immature Gran % (Auto) Neut % (Auto) Lymph % (Auto) [place] % (Auto) Eos % (Auto) Baso % (Auto) Lymph # (Auto) [place] # (Auto) Eos # (Auto) Baso # (Auto) Abs Immat Gran (auto) Absolute Neuts (auto) Absolute Nucleated RBC Nucleated RBC % (auto) ESR Sodium Potassium Chloride Carbon Dioxide Anion Gap BUN Creatinine Estim Creat Clear Calc Estimated GFR POC Glucose 323 H 266 H Random Glucose Fasting Glucose Lactic Acid Lactic Acid F/U @ 2Hr Calcium Total Bilirubin Direct Bilirubin AST ALT Alkaline Phosphatase C-Reactive Protein Total Protein Albumin Vancomycin Trough Cancelled Random Vancomycin COVID-19 ([facility]) COVID-19 Clin Com 11/01/21 11/02/21 11/02/21 19:50 07:31 09:43 WBC RBC Hgb Hct MCV MCH MCHC RDW Plt Count MPV Immature Gran % (Auto) Neut % (Auto) Lymph % (Auto) [place] % (Auto) Eos % (Auto) Baso % (Auto) Lymph # (Auto) [place] # (Auto) Eos # (Auto) Baso # (Auto) Abs Immat Gran (auto) Absolute Neuts (auto) Absolute Nucleated RBC Nucleated RBC % (auto) ESR Sodium Potassium Chloride Carbon Dioxide Anion Gap BUN Creatinine 0.73 Estim Creat Clear Calc 120.8 Estimated GFR > 60 POC Glucose 318 H 171 H Random Glucose Fasting Glucose Lactic Acid Lactic Acid F/U @ 2Hr Calcium Total Bilirubin Direct Bilirubin AST ALT Alkaline Phosphatase C-Reactive Protein Total Protein Albumin Vancomycin Trough Random Vancomycin COVID-19 ([facility]) COVID-19 Clin Com Airway Mallampati Class: III Loose/Missing/Broken Teeth: Yes (globally poor dentition . ) Heart: S1,S2 Lungs: b/l breath sounds Assessment and Plan Assessment Anesthesia Assessment: Anesthesia Plan Discussed (with daughter ) and Chart Reviewed Final Anesthetic Review Family History of Problems with Anesthesia: No History of Problems with Anesthesia: No NPO: Yes ASA Class: III and Emergency Final Preanesthetic Review: Meds/Allgs Chart Reviewed, Consent Obtained/Reviewed and Anes Risks/Benef Reviewed Patient Risk: High Procedure Risk: Intermediate Anesthetic Plan Anesthetic Plan: GA Disposition: Inp. Admit - Standard Bed
--- NOTE | 2021-11-02 10:56 | MHC.SHP ---
Pre-Procedural Eval Section A Date of Service: 11/02/21 The patient is an INPATIENT: Yes Changes since office visit: Yes Patient answered all questions The History & Physical has been completed within 30 days and I have reviewed it.: Yes Section B Chief Complaint: Osteomyelitis LT LEG PVD Allergies: Allergies Allergy/AdvReac Type Severity Reaction Status Date / Time No Known Allergies Allergy Verified 07/07/21 09:53 [No Known Allergies*] Plan I have reviewed the history and physical and performed a pertinent physical examination on my patient. No changes have occurred unless specified.
--- NOTE | 2021-11-02 11:05 | P.PNIM_ITS ---
Subjective Subjective Date of Service: 11/02/21 Interval History: cc: necrotic left 3rd toe interval history:hungry Cardiovascular Cardiovascular: Reports no additional cardiovascular complaints Respiratory Respiratory: Reports no additional respiratory complaints Physical Exam Vital Signs: Vital Signs: Last Vital Signs Temp 96.4 F L 11/02/21 10:38 Pulse 76 11/02/21 10:38 Resp 16 11/02/21 10:38 BP 134/88 11/02/21 10:38 Pulse Ox 99 11/02/21 10:38 O2 Del Method 11/02/21 10:38 BMI result Body Mass Index 25.8 Const: Other: Awake confused at baseline Resp: Other: Clear to auscultation bilaterally no rales rhonchi or wheezes Cardio: Other: No S4; positive S1-S2; no S3 murmurs rubs or gallops GI: Other: Soft nontender nondistended normoactive bowel sounds Extrem: Other: See admission photo for details Objective Data Active Medications Acetaminophen (Acetaminophen 325 Mg Tablet) 650 mg PO Q6H PRN PRN Reason: Pain, Mild (Pain Scale 1-3) Last Admin: 11/02/21 09:31 Dose: 650 mg Documented By: HARRY Acetaminophen (Acetaminophen 325 Mg Tablet) 650 mg PO Q6H PRN PRN Reason: Pain, Mild (Pain Scale 1-3) Al Hydroxide/Mg Hydroxide (Magnesium Hydrox/Alum Hydrox 30 Ml Oral.Susp) 30 ml PO Q4H PRN PRN Reason: Indigestion Ascorbic Acid (Ascorbic Acid 500 Mg Tablet) 500 mg PO DAILY [facility] Last Admin: 11/02/21 09:11 Dose: 500 mg Documented By: HARRY Aspirin (Aspirin 81 Mg Tab.Chew) 81 mg PO DAILY [facility] Last Admin: 11/02/21 09:11 Dose: 81 mg Documented By: HARRY Benztropine Mesylate (Benztropine Mesylate 0.5 Mg Tablet) 0.5 mg PO BID [facility] Last Admin: 11/02/21 09:11 Dose: 0.5 mg Documented By: HARRY Benztropine Mesylate (Benztropine Mesylate 1 Mg Tablet) 1 mg PO BID [facility] Last Admin: 11/02/21 09:10 Dose: 1 mg Documented By: HARRY Clopidogrel Bisulfate (Clopidogrel Bisulfate 75 Mg Tablet) 75 mg PO DAILY [facility] Last Admin: 11/02/21 09:11 Dose: 75 mg Documented By: HARRY Empagliflozin (Empagliflozin 10 Mg Tablet) 10 mg PO DAILY [facility] Last Admin: 11/02/21 09:11 Dose: 10 mg Documented By: HARRY Enoxaparin Sodium (Enoxaparin Sodium 40 Mg/0.4 Ml Syringe) 40 mg SUBCUT Q24H [facility] Last Admin: 11/01/21 19:40 Dose: 40 mg Documented By: PAYTON Gemfibrozil (Gemfibrozil 600 Mg Tablet) 600 mg PO BID [facility] Last Admin: 11/02/21 09:10 Dose: 600 mg Documented By: HARRY Haloperidol (Haloperidol 0.5 Mg Tablet) 0.5 mg PO BID [facility] Last Admin: 11/02/21 09:10 Dose: 0.5 mg Documented By: HARRY Haloperidol (Haloperidol 1 Mg Tablet) 1 mg PO BID [facility] Last Admin: 11/02/21 09:11 Dose: 1 mg Documented By: HARRY Piperacillin Sod/Tazobactam (Sod 4.5 gm/ Sodium Chloride) 100 mls @ 200 mls/hr IV Q6H [facility] Last Infusion: 11/02/21 10:08 Dose: 0 mls/hr Documented By: HARRY Vancomycin HCl 1,250 mg/ (Sodium Chloride) 250 mls @ 166.667 mls/hr IV Q12H [facility] Last Infusion: 11/02/21 05:30 Dose: 0 mls/hr Documented By: PAYTON Insulin Glargine (Insulin Glargine,Hum.Rec.Anlog 100 Unit/Ml 10 Ml Vial) 31 unit SUBCUT DAILY [facility] Last Admin: 11/02/21 09:48 Dose: Not Given Documented By: HARRY Non-Admin Reason: NPO Insulin Glargine (Insulin Glargine,Hum.Rec.Anlog 100 Unit/Ml 10 Ml Vial) 10 unit SUBCUT BEDTIME [facility] Last Admin: 11/01/21 19:39 Dose: 10 unit Documented By: PAYTON Lactulose (Lactulose 20 Gm/30 Ml Solution) 60 gm PO TID [facility] Last Admin: 11/02/21 09:11 Dose: 60 gm Documented By: HARRY Ondansetron HCl (Ondansetron Hcl 4 Mg/2 Ml Vial) 4 mg IVPUSH Q8H PRN PRN Reason: Nausea and Vomiting Oxycodone HCl (Oxycodone Hcl Immed Release 5 Mg Tablet) 5 mg PO Q4H PRN PRN Reason: Pain, Moderate (Pain Scale 4-6 Last Admin: 11/02/21 09:31 Dose: 5 mg Documented By: HARRY Pharmacy Consult (Consult Rx Perform Med Rec) 1 each MISCELLANE ONCE PRN PRN Reason: Consult order Pharmacy Consult (Consult Rx Vancomycin Dosing) 1 each MISCELLANE DAILY PRN PRN Reason: Consult order Pharmacy Consult (Consult Rx Perform Med Rec) 1 each MISCELLANE ONCE PRN PRN Reason: Consult order Pharmacy Consult (Consult Rx Vancomycin Dosing) 1 each MISCELLANE DAILY PRN PRN Reason: Consult order Propranolol HCl (Propranolol Hcl 10 Mg Tablet) 5 mg PO BID [facility]; Protocol Last Admin: 11/02/21 09:12 Dose: 5 mg Documented By: HARRY Rifaximin (Rifaximin 550 Mg Tablet) 550 mg PO BID [facility] Last Admin: 11/02/21 09:11 Dose: 550 mg Documented By: HARRY Senna (Sennosides 8.6 Mg Tablet) 8.6 mg PO Q24H PRN PRN Reason: Constipation Simethicone (Simethicone 80 Mg Tab.Chew) 160 mg PO BID [facility] Last Admin: 11/02/21 09:11 Dose: 160 mg Documented By: HARRY Sodium Chloride (0.9 % Sodium Chloride Flush 3 Ml Syringe) 3 ml IVFLUSH QSHIFT [facility] Last Admin: 11/02/21 09:10 Dose: 3 ml Documented By: HARRY Labs CBC & Chem 7: 10/30/21 05:29 11/02/21 09:43 Labs: Laboratory Results - last 24 hr 11/01/21 11/01/21 11/01/21 11:04 15:07 15:38 Estim Creat Clear Calc Estimated GFR POC Glucose 323 H 266 H Vancomycin Trough Cancelled 11/01/21 11/02/21 11/02/21 19:50 07:31 09:43 Estim Creat Clear Calc 120.8 Estimated GFR > 60 POC Glucose 318 H 171 H Vancomycin Trough Microbiology Microbiology Results: Microbiology 10/27/21 17:29 Blood Culture - Final Blood - Venous No growth after 5 days. 10/27/21 14:51 Blood Culture - Final Blood - Venous No growth after 5 days. Assessment and Plan (1) Osteomyelitis of toe: Status: Acute (2) Anoxic brain damage: Status: Acute (3) Diabetes: Status: Acute Plan 51[facility]year-[facility] found to have necrotic left 3rd toe. X-rays incon clusive for osteomyelitis however highly suggestive. Osteomyelitis -vancomycin/Zosyn (6) plan for amp of left 3rd toe depending on results may not need long-term antibiotics so hold PICC at this time Anoxic brain injury/dementia -continue all outpatient therapies as per [facility], -adjust as clinically indicated Diabetes type 2 -acceptable control on current therapies -adjust as indicated Encephalopathy -continue rifimixan/lactulose as per [facility] Full code Lovenox Patient requires ongoing hospitalization for IV antibiotics to treat necrotic toe pending amputation Quality Stroke Does the patient have a stroke diagnosis?: No VTE Prior VTE?: No VTE Risk Level:: Medical - moderate - high VTE Device Contraindication: Treatment Not Indicated VTE Drug Contraindication: N/A - Med Ordered
[2021-11-02] MEDS: Lactated Ringers 1,000 ML 50 ML IVCONT (11:09)
--- NOTE | 2021-11-02 12:00 | W.PM.OPN ---
Operative Note Operative Note Date of Service: 11/02/21 Narrative: Operative note by [facility] Preoperative diagnosis:left third toe gangerene Postoperative diagnosis:same Procedure:left third toe amputation Surgeon:Robbin Lee M.D. [employer] Instructor:none Anesthesia:general Specimens:1 Drains:0 Estimated blood loss:10 ml Indications: Patient is a 51-year-old gentleman with a history of diabetes and smoking. He has had a prior traumatic brain injury. He currently has a gangrenous left 3rd toe which has been a source of infection. We had reached out to his guardian last week who agreed to all procedures. at that time he requested I reach out to the daughter Kisha as well. We obtained informed consent from the daughter and due to the urgent nature we had to proceed with the amputation as it was a source of infection for him.The patient has signed the informed consent after reviewing risks, complications, benefits, and alternatives previously discussed with the patient. The patient and daughter was given the opportunity to ask any additional questions or voice any concerns. All questions were answered to the patient's satisfaction. Procedure in detail: patient was taken to the operating room prior to which a time-out was called for patient identification site verification. Left leg was prepped and draped in standard surgical fashion. [place] incision was carried out over the 3rd toe. We went down to the metatarsal head. We were able to resect the toe in its entirety. We thoroughly irrigated the wound out. Deep layer was reapproximated using 2 0 Polysorb skin was reapproximated using 2 0 nylon in a mattress fashion. Xeroform and a sterile dressing were applied. At the end the case sponge instrument counts were correct. patient tolerated the procedure well returned to recovery with stable vitals. This note is constructed using voice recognition software. While every effort has been made to ensure accuracy, manager process excellence errors may have been included. Thank you for allowing me to participate in the care of your patient. Yours sincerely, Robbin Lee MD, FACS, R.P.V.I.
--- NOTE | 2021-11-02 13:28 | HE.PHANOTE ---
Hailee hoang Pt went in for surgery so 1200pm level not drawn on 11/02; called phlebotomy at 1325 and spoke to Emily who communicated that someone was on their way up to do the draw. Put hailee on hold for now pending level results. Will adjust accordingly
--- NOTE | 2021-11-02 13:33 | MHC.CM.PN ---
Per ROUNDS discussion, patient Not yet medically cleared for discharge r/t IV antibiotics to treat left third toe amputation. D/C plan is return to [facility] [place]. CM will continue to follow for D/C needs.
[2021-11-02 14:36] LABS: Vancomycin Random 13.4 mcg/mL (15-20)
--- NOTE | 2021-11-02 15:03 | HE.PHANOTE ---
Vancomycin Dosing Addendum Patient random level can back at 13.4. Level was drawn about 3 hours late due to patient being in surgery therefore level may be slightly higher. Continue current regimen 1250 mg Q12H. Trough to be drawn 11/03 @ 1300. Mona Briscoe, NilsonD
[2021-11-02 16:46] LABS: Glucose, Whole Blood 115 mg/dL (60-115)
[2021-11-02 20:04] LABS: Glucose, Whole Blood 193 mg/dL (60-115)
[2021-11-02] MEDS: Enoxaparin Sodium 40 MG/0.4 ML SYRINGE SUBCUT (20:26)
[2021-11-03] MEDS: Piperacillin Sodium/Tazobactam 4.5 GM in 0.9 % Sodium Chloride 100 ML IV ×2 (03:23→08:57)
[2021-11-03] MEDS: Lactated Ringers 1,000 ML 50 ML IVCONT (03:27)
[2021-11-03 04:00] VITALS: BP 136/75; PULSE 87; RESP 17; TEMP 36.7; O2SAT 98
[2021-11-03] MEDS: vancomycin HCL 1,250 MG in 0.9 % Sodium Chloride 250 ML 166.67 MG IV (04:04)
[2021-11-03 05:00] VITALS: BP 124/68; PULSE 78; RESP 17; TEMP 36.6; O2SAT 97
[2021-11-03 06:33] LABS: MANUAL DIFF FLAG NO
[2021-11-03 06:39] LABS: Basophils Absolute Auto 0.1 X10*3/uL (0.0-0.2); Basophils Percent Auto 0.7 % (0-2); Eosinophils Absolute Auto 0.5 X10*3/uL (0.0-0.4); Eosinophils Percent Auto 4.9 % (0-4); Hematocrit 36.7 % (42.0-52.0); Hemoglobin 12.1 g/dl (14.0-18.0); Imm Gran Abs Auto 0.09 X10*3/uL (0.00-0.03); Imm Gran Pct Auto 0.9 % (0.0-0.4); Lymphocytes Absolute Auto 1.1 X10*3/uL (1.2-4.9); Lymphocytes Percent Auto 11.8 % (20-40); Mean Corpuscular Hemoglobin 27.5 pg (27.0-33.0); Mean Corpuscular Volume 83.4 fL (80.0-98.0); Mean Platelet Volume 10.7 fL (9.4-12.4); Monocytes Absolute Auto 0.9 X10*3/uL (0.1-1.2); Monocytes Percent Auto 9.4 % (2-11); Neutrophils Percent Auto 72.3 % (45-73); Platelet Count 354 X10*3/uL (160-400); Red Cell Distribution Width 12.7 % (11.0-16.0); White Blood Count 9.7 X10*3/uL (4.8-10.8)
[2021-11-03 06:57] LABS: Anion Gap 16 (12-20); Blood Urea Nitrogen 10 mg/dL (9-16); Calcium 8.5 mg/dL (8.4-10.2); Carbon Dioxide 20 mmol/L (22-29); Chloride 103 mmol/L (96-108); Creatinine Clr Calc Pharmacy 122.5; Estimated Glomerular Filt Rate > 60; Glucose Fasting 266 mg/dL (60-99); Potassium 3.7 mmol/L (3.3-5.1); Sodium 135 mmol/L (135-145)
[2021-11-03 07:35] VITALS: BP 172/88; PULSE 86; RESP 18; TEMP 36.6; O2SAT 99
[2021-11-03 07:52] LABS: Glucose, Whole Blood 205 mg/dL (60-115)
[2021-11-03] MEDS: Aspirin 81 MG TAB.CHEW PO (08:55)
[2021-11-03] MEDS: HaloperidoL 1 MG TABLET PO (08:55)
[2021-11-03] MEDS: Empagliflozin 10 MG TABLET PO (08:55)
[2021-11-03] MEDS: HaloperidoL 0.5 MG TABLET PO (08:56)
[2021-11-03] MEDS: rifAXIMin 550 MG TABLET PO (08:56)
[2021-11-03] MEDS: Clopidogrel Bisulfate 75 MG TABLET PO (08:56)
[2021-11-03] MEDS: gemfibroziL 600 MG TABLET PO (08:56)
[2021-11-03] MEDS: Simethicone 80 MG TAB.CHEW 160 MG PO (08:56)
[2021-11-03] MEDS: Benztropine Mesylate 1 MG TABLET PO (08:56)
[2021-11-03] MEDS: Benztropine Mesylate 0.5 MG TABLET PO (08:56)
[2021-11-03] MEDS: Propranolol HCL 10 MG TABLET 5 MG PO (08:56)
[2021-11-03] MEDS: Ascorbic Acid 500 MG TABLET PO (08:56)
[2021-11-03] MEDS: Lactulose 20 GM/30 ML SOLUTION 60 GM PO (08:57)
[2021-11-03] MEDS: Insulin Glargine,Hum.rec.anlog 100 UNIT/ML 10 ML VIAL 31 UNIT SUBCUT (08:58)
--- NOTE | 2021-11-03 08:58 | HO.VASCPN ---
Subjective Subjective Date of Service: 11/03/21 Patient reports: no new complaints and feels better Interval history: Patient seen and examined. Patient is postop day 1 status post left 3rd toe amputation. He has no interval issues. Reports that he is pain-free but he is quite confused in general. When found this morning he had an aide that was trying to have prevent him from picking his dressing off. He now presents to us for vascular follow-up. Physical Exam Vital Signs: Vital Signs: Last Vital Signs Temp 97.9 F 11/03/21 07:35 Pulse 86 11/03/21 07:35 Resp 18 11/03/21 07:35 BP 172/88 H 11/03/21 07:35 Pulse Ox 99 11/03/21 07:35 O2 Del Method 11/03/21 07:35 O2 Flow Rate 3 11/02/21 12:30 BMI result Body Mass Index 25.8 Const: General: cooperative, healthy appearing and no acute distress Orientation/consciousness: oriented to person, oriented to place and oriented to time HEENT: Head: Yes normal to inspection Neck: Carotids: no bruits Chest: Chest palpation & inspection: normal inspection of the chest Resp: Effort & Inspection: normal respiratory effort and able to speak in complete sentences Auscultation: clear to auscultation bilaterally Cardio: Rate: regular rate Heart sounds: S1 normal heart sound present and S2 normal heart sound present GI: Inspection: Yes normal to inspection Skin: Other: Left 3rd toe amputation site healing well General skin exam: no rashes or lesions noted Wounds: amputation site Neuro: General: oriented to person, oriented to place, oriented to time and CN's II-XI intact bilaterally Extrem: General: Yes normal to inspection, Yes full ROM and Yes no clubbing, cyanosis or edema Psych: Appearance: grossly normal and well kempt Speech and movement: Normal speech and movement present Affect: normal affect Progress Note: A&P Assessment and plan (1) PAD (peripheral artery disease): Status: Acute Assessment and Plan: patient is stable status post left 3rd toe amputation. Dressing was changed it appears to be healing well. Patient is stable from my perspective for discharge. I believe I have removed all the infected tissue and would not require additional antibiotics. He will need to remain on aspirin and Plavix for 6 months due to his new left SFA stent. He can follow up with me in approximately 2 weeks time for removal of sutures. Thank you for allowing us to assist in his care Time Spent With Patient Time: Total time spent is greater than 50% in coordination of care (as documented) at patient's floor/unit and/or counseling patient: Procedures Date of Service Date of Service: 11/03/21 Quality Stroke Does the patient have a stroke diagnosis?: No VTE Prior VTE?: No VTE Risk Level:: Medical - moderate - high VTE Device Contraindication: Treatment Not Indicated VTE Drug Contraindication: N/A - Med Ordered
--- NOTE | 2021-11-03 09:37 | P.DS_ITS ---
DS: Providers Provider Date of Service: 11/03/21 Date of admission: 10/27/21 17:22 Primary care physician: Apolinar Olmstead DO Consults: 10/27/21 17:28 Consult to Vascular Surgery Routine Consulting Provider: Robbin Lee Reason for consultation: osteomyelitis Has provider been notified: Yes DS: Diagnosis Discharge Diagnosis (1) PAD (peripheral artery disease): Status: Acute DS: Summary Hospital Course Hospital Course: from initial hpi: Chief Complaint: infected toe 51-year-old male presents to the emergency department from [facility] with a necrotic left 3rd toe.? Patient can be resistive to [facility] and with the wound nurse saw him today found to be necrotic and sent to the ER.? In the emergency room limited assessment for detection of osteo however though highly suspicious.? Patient will be admitted for further workup vascular consult hospital course: Patient was admitted for osteomyelitis of the left 3rd toe associated with diabetes and peripheral vascular disease. He underwent angiography with left SFA plasty and stent. He was placed on dual antiplatelets. He was covered with broad-spectrum IV antibiotics, cultures were negative, he underwent left 3rd toe amputation with good margins achieved. He will be discharged back to snf facility without antibiotics. He should follow up with vascular in 2 weeks. Time Spent with Patient Time attestation: Total time spent providing and/or coordinating discharge services: Discharge coordination time: Greater than 30 minutes Quality: Safe Use of Opioids Does Pt have an Active Cancer Diagnosis on the Problem List?: No Quality: Stroke Does the patient have a stroke diagnosis?: No Physical Exam Vital Signs: Vital Signs: Last Vital Signs Temp 97.9 F 11/03/21 07:35 Pulse 86 11/03/21 07:35 Resp 18 11/03/21 07:35 BP 172/88 H 11/03/21 07:35 Pulse Ox 99 11/03/21 07:35 O2 Del Method 11/03/21 07:35 O2 Flow Rate 3 11/02/21 12:30 BMI result Body Mass Index 25.8 Const: General: cooperative, healthy appearing and no acute distress Orientation/consciousness: oriented to person, oriented to place and oriented to time HEENT: Head: Yes normal to inspection Neck: Carotids: no bruits Chest: Chest palpation & inspection: normal inspection of the chest Resp: Effort & Inspection: normal respiratory effort and able to speak in complete sentences Auscultation: clear to auscultation bilaterally Cardio: Rate: regular rate Heart sounds: S1 normal heart sound present and S2 normal heart sound present GI: Inspection: Yes normal to inspection Skin: Other: Left 3rd toe amputation site healing well General skin exam: no rashes or lesions noted Wounds: amputation site Neuro: General: oriented to person, oriented to place, oriented to time and CN's II-XI intact bilaterally Extrem: General: Yes normal to inspection, Yes full ROM and Yes no clubbing, cyanosis or edema Psych: Appearance: grossly normal and well kempt Speech and movement: Normal speech and movement present Affect: normal affect DS: Data Data Completed and Pending Pending studies at discharge: Pending at discharge 11/02/21 11:39 Surgical [PTH] Routine Labs on day of discharge: Laboratory Results - last 24 hr 11/02/21 11/02/21 11/02/21 09:43 13:41 15:29 WBC RBC Hgb Hct MCV MCH MCHC RDW Plt Count MPV Immature Gran % (Auto) Neut % (Auto) Lymph % (Auto) [place] % (Auto) Eos % (Auto) Baso % (Auto) Lymph # (Auto) [place] # (Auto) Eos # (Auto) Baso # (Auto) Abs Immat Gran (auto) Absolute Neuts (auto) Absolute Nucleated RBC Nucleated RBC % (auto) Sodium Potassium Chloride Carbon Dioxide Anion Gap BUN Creatinine 0.73 Estim Creat Clear Calc 120.8 Estimated GFR > 60 POC Glucose 115 Random Glucose Fasting Glucose Calcium Random Vancomycin 13.4 L 11/02/21 11/03/21 11/03/21 19:38 06:12 06:12 WBC 9.7 RBC 4.40 L Hgb 12.1 L Hct 36.7 L MCV 83.4 MCH 27.5 MCHC 33.0 RDW 12.7 Plt Count 354 MPV 10.7 Immature Gran % (Auto) 0.9 H Neut % (Auto) 72.3 Lymph % (Auto) 11.8 L [place] % (Auto) 9.4 Eos % (Auto) 4.9 H Baso % (Auto) 0.7 Lymph # (Auto) 1.1 L [place] # (Auto) 0.9 Eos # (Auto) 0.5 H Baso # (Auto) 0.1 Abs Immat Gran (auto) 0.09 H Absolute Neuts (auto) 7.0 Absolute Nucleated RBC 0.000 Nucleated RBC % (auto) 0.0 Sodium 135 Potassium 3.7 Chloride 103 Carbon Dioxide 20 L Anion Gap 16 BUN 10 Creatinine 0.72 Estim Creat Clear Calc 122.5 Estimated GFR > 60 POC Glucose 193 H Random Glucose Fasting Glucose 266 H Calcium 8.5 Random Vancomycin 11/03/21 11/03/21 06:12 07:46 WBC RBC Hgb Hct MCV MCH MCHC RDW Plt Count MPV Immature Gran % (Auto) Neut % (Auto) Lymph % (Auto) [place] % (Auto) Eos % (Auto) Baso % (Auto) Lymph # (Auto) [place] # (Auto) Eos # (Auto) Baso # (Auto) Abs Immat Gran (auto) Absolute Neuts (auto) Absolute Nucleated RBC Nucleated RBC % (auto) Sodium Cancelled Potassium Cancelled Chloride Cancelled Carbon Dioxide Cancelled Anion Gap Cancelled BUN Cancelled Creatinine Cancelled Estim Creat Clear Calc Cancelled Estimated GFR Cancelled POC Glucose 205 H Random Glucose Cancelled Fasting Glucose Calcium Cancelled Random Vancomycin Discharge Plan Discharge Patient Disposition: Xfer SNF Discharge Diagnosis: OM Referrals: Apolinar Olmstead DO [Primary Care Provider] - 1 Week Discharge Medications: New clopidogrel 75 mg Tablet 75 mg PO DAILY Qty: 0 0RF aspirin 81 mg Tablet,Chewable 81 mg PO DAILY Qty: 0 0RF Continued haloperidol 0.5 mg Tablet 0.5 mg PO BID sennosides [senna] 8.6 mg Tablet 8.6 mg PO Q24H PRN (Reason: Constipation) acetaminophen 325 mg Tablet 650 mg PO Q6H PRN (Reason: Pain) benztropine 0.5 mg Tablet 0.5 mg PO BID Miconazorb AF 2 % Powder 1 appl TOPICAL MOWEFR@2100 haloperidol 1 mg Tablet 1 mg PO BID propranolol 10 mg Tablet 5 mg PO BID ascorbic acid (vitamin C) 500 mg Tablet 500 mg PO DAILY gemfibrozil 600 mg Tablet 600 mg PO BID metformin 1,000 mg Tablet 1,000 mg PO BID benztropine 1 mg Tablet 1 mg PO BID alum-mag hydroxide-simeth 200-200-20 mg/5 mL Suspension 30 ml PO Q4H PRN (Reason: Indigestion) nystatin 100,000 unit/gram Powder 1 appl TOPICAL Q8H PRN (Reason: redened areas) Rx Instructions: Apply as need for redness/irritation around abdomnial folds, anxillary, and groin insulin lispro [Humalog U-100 Insulin] 100 unit/mL Solution 0 sliding scale dose SUBCUT USEASDIRECTD Protocol: Insulin Correction Scale Less than or equal to 110 ---- Give (units): 0 111 to 150 Give (units): 0 151 to 200 Give (units): 4 201 to 250 Give (units): 4 251 to 300 Give (units): 8 301 to 350 Give (units): 8 Greater than 350 Give (units): 10 Call if Blood Glucose > : 350 simethicone 80 mg Tablet,Chewable 160 mg PO BID Levemir U-100 Insulin 100 unit/mL Solution 15 unit SUBCUT BEDTIME Levemir FlexTouch U-100 Insuln 100 unit/mL (3 mL) Insulin Pen 45 unit SUBCUT DAILY Minerin Creme Cream 1 appl TOPICAL BEDTIME Rx Instructions: For dry skin, do not apply between the toes rifaximin 550 mg Tablet 550 mg PO BID lactulose 10 gram/15 mL (15 mL) Solution 90 ml PO TID Farxiga 10 mg Tablet 10 mg PO DAILY Trulicity 1.5 mg/0.5 mL Pen Injector 1.5 mg SUBCUT FR Discharge Orders: Discharge Order (Routine); Ordered 11/03/21 Ordered By: Reginaldo Jacobs Diet: Advance to usual diet Activity on Discharge: As tolerated Stand Alone Forms: Patient Portal Discharge page Activity Restrictions/Additional Instructions: Wound care upon discharge: xeroform, 4x4 and Kerlix wrap to be changed daily. Please call Dr. Lee at [phone] for 2 week follow up for suture removal Care Plan Goals: reocvery Health Concerns: amputation Plan of Treatment: dual antipletel, follow up with vascular Assessment: see above
--- NOTE | 2021-11-03 10:04 | HO.POSTANES ---
Post Anesthesia Evaluation Post Anesthesia Evaluation Vital Signs: Vital Signs Temp Pulse Resp BP Pulse Ox O2 Del Method 11/03/21 07:35 97.9 F 86 18 172/88 H 99 Room Air 11/03/21 05:00 97.8 F 78 17 124/68 97 Room Air 11/03/21 04:00 98.1 F 87 17 136/75 98 Room Air 11/02/21 23:35 97.6 F 95 17 159/67 H 95 Room Air Anesthesia: General Mental Status: Awake Pain Control: Satisfactory Nausea/Vomiting: None Hydration: Adequate Anesthesia-Related Issues: No Anes. Related Issues
[2021-11-03 11:24] VITALS: BP 146/75; PULSE 90; RESP 18; TEMP 36.6; O2SAT 99
[2021-11-03 11:47] LABS: Glucose, Whole Blood 324 mg/dL (60-115)
[2021-11-03 12:19] LABS: COVID-19 Test Negative (Negative)
--- NOTE | 2021-11-03 13:48 | MHC.CM.PN ---
Addendum entered by Shirley Flowers 11/03/21 14:02: Jose Vega ([phone]), guardian for patient, has been notified of patient's discharge disposition back to [facility] [place]. Original Note: Patient is medically cleared for discharge today; [facility] BLS transportation. No Imm needed.
[2021-11-03 13:50] LABS: Vancomycin Trough 16.2 mcg/mL (10.0-20.0)
== END 2021-11-03 14:26 | disposition skilled nursing facility (03) | DRG 182 ==
LOC: HO.ED 15:19 → HO.EDOVER 17:26 → HO.S3 10-28 11:13
PROVIDERS: Internal Medicine; Surgery Vascular Surgery; Admitting Provider Hospitalist; Emergency Provider Emergency Medicine; PCP Hospitalist; Visit Provider Internal Medicine
PROC: 047L3DZ Dilation of Left Femoral Artery with Intraluminal Device, Percutaneous Approach (ICD-10-PCS; principal; 2021-10-29 11:30)
PROC: 0Y6U0Z0 Detachment at Left 3rd Toe, Complete, Open Approach (ICD-10-PCS; principal; 2021-11-02 10:40)
DX: E11.52 Type 2 diabetes mellitus with diabetic peripheral angiopathy with gangrene (principal); G93.1 Anoxic brain damage, not elsewhere classified; I70.262 Atherosclerosis of native arteries of extremities with gangrene, left leg; E11.69 Type 2 diabetes mellitus with other specified complication; F03.90 Unspecified dementia, unspecified severity, without behavioral disturbance, psychotic disturbance, mood disturbance, and anxiety; M86.9 Osteomyelitis, unspecified; E78.5 Hyperlipidemia, unspecified; Z20.822 Contact with and (suspected) exposure to COVID-19; Z87.891 Personal history of nicotine dependence; Z79.4 Long term (current) use of insulin; Z79.82 Long term (current) use of aspirin; Z79.84 Long term (current) use of oral hypoglycemic drugs; Z79.899 Other long term (current) drug therapy
CPT/HCPCS: 36415; 37226; 73630; 76937; 80048; 80053; 80076; 80202; 82565; 82947; 83605; 85025; 85652; 86140; 87040; 87635; 88305; 88311; 93923; 93925; 96361; 96365; 96366; 96375; 99152; 99153; 99285; C1725; C1769; C1876; C1887; J1650; J2250; J2543; J2795; J3010; J3360; J3370; Q9967

== ENCOUNTER → 2021-11-17 10:38 | Outpatient (BNVA) | payer MEDICAID, SELFPAY | PROVIDERS: PCP Hospitalist; Visit Provider Surgery Vascular Surgery | DX: I73.9 Peripheral vascular disease, unspecified (principal) | CPT/HCPCS: 99212 ==

== ENCOUNTER → 2021-12-03 13:24 | Outpatient (BNVA) | payer MEDICAID, SELFPAY | PROVIDERS: PCP Hospitalist; Visit Provider Surgery Vascular Surgery | DX: I73.9 Peripheral vascular disease, unspecified (principal) | CPT/HCPCS: 99212 ==

== ENCOUNTER → 2021-12-24 13:08 | Outpatient (BNVA) | payer MEDICAID, SELFPAY | PROVIDERS: PCP Hospitalist; Visit Provider Surgery Vascular Surgery | DX: Z47.81 Encounter for orthopedic aftercare following surgical amputation (principal); I73.9 Peripheral vascular disease, unspecified; Z89.422 Acquired absence of other left toe(s) | CPT/HCPCS: 99212 ==

== ENCOUNTER → 2022-01-21 10:15 | Outpatient (BNVA) | payer MEDICAID, SELFPAY | PROVIDERS: PCP Hospitalist; Visit Provider Surgery Vascular Surgery | DX: I73.9 Peripheral vascular disease, unspecified (principal) | CPT/HCPCS: 99212 ==

== ENCOUNTER → 2022-03-11 13:43 | Outpatient (BNVA) | payer MEDICAID, SELFPAY | PROVIDERS: PCP Hospitalist; Visit Provider Surgery Vascular Surgery | DX: Z47.81 Encounter for orthopedic aftercare following surgical amputation (principal); I73.9 Peripheral vascular disease, unspecified; Z89.422 Acquired absence of other left toe(s) | CPT/HCPCS: 99212 ==

== ENCOUNTER → 2022-04-13 10:21 | Outpatient (BNVA) | payer MEDICAID, SELFPAY | PROVIDERS: PCP Hospitalist; Visit Provider Surgery Vascular Surgery | DX: I73.9 Peripheral vascular disease, unspecified (principal); Z89.422 Acquired absence of other left toe(s); Z95.820 Peripheral vascular angioplasty status with implants and grafts | CPT/HCPCS: 99212 ==

== ENCOUNTER 2022-05-05 14:54 | Outpatient (REF) | payer MEDICAID, SELFPAY ==
--- NOTE | ~2022-05-05 | US_ITS ---
EXAMINATION: ANKLE-BRACHIAL INDICES SINGLE LEVEL PULSE VOLUME RECORDING ARTERIAL DUPLEX BILATERAL LEGS CLINICAL INFORMATION: Peripheral vascular disease. COMPARISON: 10/27/2021. TECHNIQUE: Ankle-brachial indices and PVR at the ankle were obtained. Duplex Doppler of the bilateral lower extremity arterial systems was performed. FINDINGS: RIGHT: Ankle-brachial index: 0.86 PVR: Abnormal (patient had a tremor which limits evaluation) Common femoral: PSV 85 cm/s. Triphasic waveform. Deep femoral: PSV 234 cm/s. Triphasic waveform. Moderate stenosis. Proximal superficial femoral: PSV 393 cm/s. Biphasic waveform. Moderate stenosis. Mid superficial femoral: PSV 126 cm/s. Biphasic waveform. Distal superficial femoral: PSV 29 cm/s. Biphasic waveform. Popliteal: PSV 53 cm/s. Monophasic waveform. Posterior tibial: PSV 94 cm/s. Monophasic waveform. Peroneal: Not visualized, question occluded. LEFT: Ankle-brachial index: 0.74 PVR: Abnormal (patient had a tremor which limits evaluation) Common femoral: PSV 318 cm/s. Biphasic waveform. Deep femoral: PSV 284 cm/s. Biphasic waveform. Superficial femoral artery is stented. [place] artery proximal to the stent: PSV 48 cm/s. Biphasic waveform. Proximal stent: PSV 43 cm/s. Biphasic waveform. Mid stent: PSV 98 cm/s. Biphasic waveform. Distal stent: PSV 117 cm/s. Biphasic waveform. Negative artery distal to stent: PSV 82 cm/s. Biphasic waveform. Popliteal: PSV 58 cm/s. Biphasic waveform. Posterior tibial: Not visualized, question occluded. Peroneal: Not visualized, question occluded. US/US arterial duplex LE BI IMPRESSION: Right lower extremity: Ankle-brachial index 0.86. Abnormal PVR (though patient tremor limits evaluation). Moderate stenoses in the deep femoral and proximal superficial femoral arteries. Monophasic waveform popliteal artery and posterior tibial artery. Nonvisualized peroneal artery question occluded. Left lower extremity: Ankle-brachial index 0.74. Abnormal PVR (the patient tremor limits evaluation). The superficial femoral artery stent is patent. The posterior tibial and peroneal arteries are not visualized, question occluded.
--- NOTE | ~2022-05-05 | US_ITS ---
EXAMINATION: ANKLE-BRACHIAL INDICES SINGLE LEVEL PULSE VOLUME RECORDING ARTERIAL DUPLEX BILATERAL LEGS CLINICAL INFORMATION: Peripheral vascular disease. COMPARISON: 10/27/2021. TECHNIQUE: Ankle-brachial indices and PVR at the ankle were obtained. Duplex Doppler of the bilateral lower extremity arterial systems was performed. FINDINGS: RIGHT: Ankle-brachial index: 0.86 PVR: Abnormal (patient had a tremor which limits evaluation) Common femoral: PSV 85 cm/s. Triphasic waveform. Deep femoral: PSV 234 cm/s. Triphasic waveform. Moderate stenosis. Proximal superficial femoral: PSV 393 cm/s. Biphasic waveform. Moderate stenosis. Mid superficial femoral: PSV 126 cm/s. Biphasic waveform. Distal superficial femoral: PSV 29 cm/s. Biphasic waveform. Popliteal: PSV 53 cm/s. Monophasic waveform. Posterior tibial: PSV 94 cm/s. Monophasic waveform. Peroneal: Not visualized, question occluded. LEFT: Ankle-brachial index: 0.74 PVR: Abnormal (patient had a tremor which limits evaluation) Common femoral: PSV 318 cm/s. Biphasic waveform. Deep femoral: PSV 284 cm/s. Biphasic waveform. Superficial femoral artery is stented. [place] artery proximal to the stent: PSV 48 cm/s. Biphasic waveform. Proximal stent: PSV 43 cm/s. Biphasic waveform. Mid stent: PSV 98 cm/s. Biphasic waveform. Distal stent: PSV 117 cm/s. Biphasic waveform. Negative artery distal to stent: PSV 82 cm/s. Biphasic waveform. Popliteal: PSV 58 cm/s. Biphasic waveform. Posterior tibial: Not visualized, question occluded. Peroneal: Not visualized, question occluded. US/US CARMELLA complete IMPRESSION: Right lower extremity: Ankle-brachial index 0.86. Abnormal PVR (though patient tremor limits evaluation). Moderate stenoses in the deep femoral and proximal superficial femoral arteries. Monophasic waveform popliteal artery and posterior tibial artery. Nonvisualized peroneal artery question occluded. Left lower extremity: Ankle-brachial index 0.74. Abnormal PVR (the patient tremor limits evaluation). The superficial femoral artery stent is patent. The posterior tibial and peroneal arteries are not visualized, question occluded.
== END 2022-05-05 14:55 | disposition home or self-care (01) ==
LOC: HO.US 14:54
PROVIDERS: Visit Provider Surgery Vascular Surgery
DX: I70.213 Atherosclerosis of native arteries of extremities with intermittent claudication, bilateral legs (principal)
CPT/HCPCS: 93923; 93925

== ENCOUNTER → 2022-05-27 13:12 | Outpatient (BNVA) | payer MEDICAID, SELFPAY | PROVIDERS: PCP Hospitalist; Visit Provider Surgery Vascular Surgery | DX: I73.9 Peripheral vascular disease, unspecified (principal) | CPT/HCPCS: 99212 ==

== ENCOUNTER → 2022-09-17 10:54 | Outpatient (BNVA) | payer MEDICAID, SELFPAY | PROVIDERS: PCP Hospitalist; Visit Provider Nurse Practitioner Family | DX: K59.01 Slow transit constipation (principal); Z12.11 Encounter for screening for malignant neoplasm of colon | CPT/HCPCS: 99202 ==

== ENCOUNTER 2022-10-28 10:39 | Outpatient (AMB) | payer MEDICAID, SELFPAY ==
[2022-10-28 10:48] VITALS: BP 145/65; PULSE 89; BMI 21.7
--- NOTE | 2022-10-28 10:48 | A.OFFVIS_ITS ---
Intake Vital Signs 10/28/22 10:48 Height 5 ft 9.5 in Weight 149 lb 0.52 oz BMI 21.7 BP 145/65 H Blood Pressure Location Lt brachial Position Sitting Pulse 89 Intake Visit Reasons: 6 week follow up Intake Note: Jorge presents in office as a est.patient for a 6 week f/u PT CC: pt reports having no concerns pt denies any other GI Issues Feed Handler Required: No Accompanied by: [facility] worker Allergies No Known Allergies [No Known Allergies*] Allergy (Verified 10/28/22 10:48) HPI 6 week follow up HPI Details LAST VISIT Constipation Patient reports constipation will need to stay on better bowel regimen specially before going for colonoscopy. Patient can take docusate sodium and Senokot every day to help her move his bowels and stay irregular. Will reassess patient in 6 weeks and discuss colonoscopy. Screen for colon cancer Patient return 6 weeks to discuss colonoscopy and go over the prep. ? Thank you for allowing me to participate in his care Plan Medications New docusate sodium 100 mg PO BEDTIME 90 caps 3RF K59.00 Changed From sennosides 8.6 mg PO Q24H PRN Constipation K59.00 To sennosides (senna) 8.6 mg PO Q24H 30 tabs 0RF Constipation K59.00 TODAY'S VISIT Patient is here today for follow-up and to discuss going for colonoscopy. Patient has a history of anoxic brain damage and is unable to follow directions very well, however according to retirement staff patient is able use the bathroom on his own. Patient is able to follow simple directions. According to staff patient had not had trouble with anesthesia in the past with her knowledge. No history of sleep apnea. Patient is on Plavix and aspirin daily. On no history of cancer in his family. No reported melena, hematochezia, unintentional weight loss or ribbon like stools. [facility] Medical History Anoxic brain damage Diabetes Dysphagia Encephalopathy Hyperlipemia Social History Household Members: Other Household Members Other:: [facility] Housing: [facility] Do you presently have visiting nurse or other home services: No Alcohol intake: unknown Patient Tobacco Use Status: Former Tobacco user Tobacco use type: Cigarette Cigarette Packs Per Day: 1 Cigarettes Per Day: 20.0 Second Hand Smoke Exposure: Yes service: No Current occupational status: disabled Review of Systems Const Denies weight gain and Denies weight loss ENT Reports no additional complaints, Denies dysphagia and Denies odynophagia Card Reports no additional complaints Resp Reports no additional complaints GI Denies abdominal pain, Denies belching, Denies melena, Denies bloating, Denies change in bowel habits, Denies dysphagia, Denies excessive flatus, Denies dyspepsia, Denies heartburn, Denies diarrhea, Denies loose stools, Denies nausea, Denies odynophagia and Denies vomiting Reports no additional complaints Musc Reports no additional complaints Neuro Reports no additional complaints Psych Reports no additional complaints Endo Reports no additional complaints Physical Exam Vital Signs: Last Vital Signs Pulse 89 10/28/22 10:48 BP 145/65 H 10/28/22 10:48 BMI result Body Mass Index 21.7 Const General: healthy appearing, no acute distress and well developed Nutritional Appearance: well nourished Orientation/consciousness: Other orientation findings (Self) HEENT Head: Yes normal to inspection, Yes normocephalic and Yes atraumatic Face and sinus: Yes normal facial exam Mouth: Normal oral and palatal mucosa present Throat: Yes posterior oropharynx normal, Yes tonsils normal and Yes uvula midline Eyes General: appearance normal, both eyes and all related structures Neck Neck: Yes normal visual inspection, Yes full ROM and Yes trachea midline Thyroid: Thyroid normal Resp Effort & Inspection: normal respiratory effort, able to speak in complete sentences, no tracheal deviation and symmetric chest movement Auscultation: clear to auscultation bilaterally Cardio Rate: regular rate Heart sounds: S1 normal heart sound present and S2 normal heart sound present GI Inspection: Yes normal to inspection and No distended Palpation (GI): Soft to palpation, not firm, nontender and No hepatosplenomegaly present Auscultation: normal bowel sounds General: Yes no CVA tenderness Back/Spine/Pelvis Back: no CVA tenderness Skin General skin exam: elasticity normal, turgor normal and dry skin Psych Appearance: grossly normal Mental Status: other (History of anoxic brain damage,) Speech and movement: Slowed speech present (Psych) Assessment & Plan Assessment & Plan (1) Constipation: Code(s): K59.00 - Constipation, unspecified Qualifiers: Constipation type: slow transit constipation Qualified Code(s): K59.01 - Slow transit constipation Plan: Patient can continue Colace and Senokot. (2) Screen for colon cancer: Code(s): Z12.11 - Encounter for screening for malignant neoplasm of colon Plan: What to expect before during and after the procedure discussed with the retirement staff. Patient is in the facility where nursing staff is able to follow through. Patient is on Plavix and aspirin. Patient should hold Plavix 5 days before the procedure. Patient denies any cardiac or respiratory symptoms. No documented issues with anesthesia in the past. No history of sleep apnea. Will do MiraLax split prep. I will see patient after the procedure, sooner on as needed basis. [facility] staff verbalizes understanding of instructions. They were given the opportunity to ask questions and all questions answered. Medications: New bisacodyl (Dulcolax (bisacodyl)) Start taking 2 tablet every night 7 days before the procedure and 1 day before procedure take 2 tablets at noon time followed by MiraLax prep 10 mg (2 x 5 mg) PO BEDTIME 14 tabs 0RF Z12.11 - Encounter for screening for malignant neoplasm of colon polyethylene glycol 3350 (Miralax) As directed by gastroenterology department at [facility] 238 grams PO ONCE 238 grams 0RF Z12.11 - Encounter for screening for malignant neoplasm of colon Coding Level of Care Code Est Pt Level 3 (70944) Diagnoses Constipation K59.01 Constipation type: slow transit constipation Screen for colon cancer Z12.11 Time Spent (min) 30 Comment 20 minutes spent with patient and additional 10 minutes spent reviewing his records
== END 2022-10-28 11:33 | disposition home or self-care (01) ==
PROVIDERS: PCP Hospitalist; Visit Provider Nurse Practitioner Family
DX: K59.01 Slow transit constipation (principal); Z12.11 Encounter for screening for malignant neoplasm of colon
CPT/HCPCS: 99213

== ENCOUNTER → 2022-10-28 10:39 | Outpatient (BNVA) | payer MEDICAID, SELFPAY | PROVIDERS: PCP Hospitalist; Visit Provider Nurse Practitioner Family | DX: R13.10 Dysphagia, unspecified (principal); E78.5 Hyperlipidemia, unspecified | CPT/HCPCS: 99212 ==

== ENCOUNTER 2022-11-09 09:45 | Outpatient (REF) | payer MEDICAID, SELFPAY ==
--- NOTE | ~2022-11-09 | US_ITS ---
EXAMINATION: NONINVASIVE ASSESSMENT OF THE ARTERIES OF BOTH LOWER EXTREMITIES WITH PVR EXAM AND BILATERAL LOWER EXTREMITY DUPLEX Angela Elder MD CLINICAL INFORMATION: Peripheral vascular disease TECHNIQUE: Ankle pulse volume recordings, ankle pressure measurements and ankle brachial indices were obtained of the lower extremity arterial system bilaterally in addition to duplex Doppler techniques with wave form analysis and measurement of velocities in the common femoral, profunda femoral, superficial femoral, popliteal and tibial arteries. The study was performed only at rest. COMPARISON: arterial exam on 05/05/22 FINDINGS: a) AT REST: RIGHT LE. The right ankle-brachial index is: 0.77 * >0.97-1.25 = normal - no significant arterial disease * 0.75-0.96 = mild peripheral arterial disease * 0.5-0.74 = moderate peripheral arterial disease * <0.50 = severe peripheral arterial disease 2. Right ankle pressure: abnormal. 3. Right ankle PVR waveform: abnormal. 4. Right direct duplex Doppler findings: Common femoral artery: 127 cm/s, Multiphasic Profunda femoris artery: 140 cm/s, Multiphasic Superficial femoral artery (proximal): 79 cm/s, Multiphasic Superficial femoral artery (mid): 154 cm/s, Multiphasic Superficial femoral artery (distal): 137 cm/s, Multiphasic Proximal Popliteal artery: 63 cm/s, monophasic Mid posterior tibial artery: 36 cm/s, monophasic LEFT LE. The left ankle-brachial index is: 0.59 * >0.97-1.25 = normal - no significant arterial disease * 0.75-0.96 = mild peripheral arterial disease * 0.5-0.74 = moderate peripheral arterial disease * <0.50 = severe peripheral arterial disease 2. Left ankle pressure: abnormal. 3. Left ankle PVR waveform: abnormal. 4. Left direct duplex Doppler findings: Common femoral artery: 223 cm/s, Multiphasic Profunda femoris artery: 300 cm/s, Multiphasic Superficial femoral artery (proximal): 179 cm/s, Multiphasic Superficial femoral artery (mid): 59 cm/s, Multiphasic, stent Superficial femoral artery (distal): 127 cm/s, Multiphasic, stent Proximal Popliteal artery: 87 cm/s, Multiphasic Mid posterior tibial artery: 27 cm/s, Multiphasic US/US CARMELLA complete IMPRESSION: RIGHT LEG: Mild-moderate peripheral arterial disease. LEFT LEG: Moderate peripheral arterial disease. Patent SFA stent
--- NOTE | ~2022-11-09 | US_ITS ---
EXAMINATION: NONINVASIVE ASSESSMENT OF THE ARTERIES OF BOTH LOWER EXTREMITIES WITH PVR EXAM AND BILATERAL LOWER EXTREMITY DUPLEX Angela Elder MD CLINICAL INFORMATION: Peripheral vascular disease TECHNIQUE: Ankle pulse volume recordings, ankle pressure measurements and ankle brachial indices were obtained of the lower extremity arterial system bilaterally in addition to duplex Doppler techniques with wave form analysis and measurement of velocities in the common femoral, profunda femoral, superficial femoral, popliteal and tibial arteries. The study was performed only at rest. COMPARISON: arterial exam on 05/05/22 FINDINGS: a) AT REST: RIGHT LE. The right ankle-brachial index is: 0.77 * >0.97-1.25 = normal - no significant arterial disease * 0.75-0.96 = mild peripheral arterial disease * 0.5-0.74 = moderate peripheral arterial disease * <0.50 = severe peripheral arterial disease 2. Right ankle pressure: abnormal. 3. Right ankle PVR waveform: abnormal. 4. Right direct duplex Doppler findings: Common femoral artery: 127 cm/s, Multiphasic Profunda femoris artery: 140 cm/s, Multiphasic Superficial femoral artery (proximal): 79 cm/s, Multiphasic Superficial femoral artery (mid): 154 cm/s, Multiphasic Superficial femoral artery (distal): 137 cm/s, Multiphasic Proximal Popliteal artery: 63 cm/s, monophasic Mid posterior tibial artery: 36 cm/s, monophasic LEFT LE. The left ankle-brachial index is: 0.59 * >0.97-1.25 = normal - no significant arterial disease * 0.75-0.96 = mild peripheral arterial disease * 0.5-0.74 = moderate peripheral arterial disease * <0.50 = severe peripheral arterial disease 2. Left ankle pressure: abnormal. 3. Left ankle PVR waveform: abnormal. 4. Left direct duplex Doppler findings: Common femoral artery: 223 cm/s, Multiphasic Profunda femoris artery: 300 cm/s, Multiphasic Superficial femoral artery (proximal): 179 cm/s, Multiphasic Superficial femoral artery (mid): 59 cm/s, Multiphasic, stent Superficial femoral artery (distal): 127 cm/s, Multiphasic, stent Proximal Popliteal artery: 87 cm/s, Multiphasic Mid posterior tibial artery: 27 cm/s, Multiphasic US/US arterial duplex LE BI IMPRESSION: RIGHT LEG: Mild-moderate peripheral arterial disease. LEFT LEG: Moderate peripheral arterial disease. Patent SFA stent
== END 2022-11-09 09:46 | disposition home or self-care (01) ==
LOC: HO.US 09:45
PROVIDERS: Visit Provider Surgery Vascular Surgery
DX: I70.213 Atherosclerosis of native arteries of extremities with intermittent claudication, bilateral legs (principal)
CPT/HCPCS: 93923; 93925

== ENCOUNTER 2022-11-30 13:58 | Outpatient (AMB) | payer MEDICAID, SELFPAY ==
--- NOTE | 2022-11-30 14:07 | MHC.OFFVIS ---
Intake Vital Signs 11/30/22 14:08 Height 5 ft 9 in Weight 149 lb BMI 22.0 Intake Visit Reasons: follow up arterial US 11/09/2022 Intake Note: Jorge presents today for f/u arterial US 11/09/22. Pt currently resides at [facility]. 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 It remains healed and he is doing extremely well with that. He now presents for routine arterial surveillance follow-up. He has been cared for at [facility]. He has had no interval issues in he in general is doing extremely well. [facility] Medical History Anoxic brain damage Diabetes Dysphagia Encephalopathy Hyperlipemia Social History Household Members: Other Household Members Other:: [facility] Housing: Residential Do you presently have visiting nurse or other home services: No Alcohol intake: unknown Patient Tobacco Use Status: Former Tobacco user Tobacco use type: Cigarette Cigarette Packs Per Day: 1 Cigarettes Per Day: 20.0 Second Hand Smoke Exposure: Yes service: No Current occupational status: disabled Review of Systems Const All systems reviewed & are unremarkable except as noted in HPI and below Reports no additional complaints ENT Reports Normal hearing present Card Denies chest pain, Denies chest pain at rest, Denies chest pain with activity and Denies pedal edema Resp Denies cough GI Denies abdominal pain Musc Denies abnormal gait, Denies muscle cramps and Denies radiating pain into limb Skin/Breast Denies skin ulcer and Denies wounds Neuro Reports Normal hearing present and Denies abnormal gait Psych Reports no additional complaints Physical Exam Vital Signs: BMI result Body Mass Index 22.0 Const General: cooperative, healthy appearing and comfortable Orientation/consciousness: oriented to person, oriented to place and oriented to time HEENT Head: Yes normal to inspection Neck Neck: Yes normal visual inspection Carotids: no bruits Chest Chest palpation & inspection: normal inspection of the chest Resp Effort & Inspection: normal respiratory effort and able to speak in complete sentences Auscultation: clear to auscultation bilaterally, no crackles, no rales, no rhonchi and no wheezes Cardio Rate: regular rate Rhythm: regular rhythm Heart sounds: S1 normal heart sound present and S2 normal heart sound present Bruits: no carotid bruits Peripheral pulses: Peripheral pulses 2+ throughout GI Inspection: Yes normal to inspection Skin Wounds: amputation site (Amputation site well-healed) Hair: normal Neuro General: oriented to person, oriented to place and oriented to time Cranial nerves: Yes CN's II-XII intact bilaterally and Yes Normal hearing present Cognition (Neuro): normal cognition Motor exam (neuro): 5/5 motor strength present throughout Extrem Other: venous exam: No significant superficial varicosities or spider telangiectasias, minimal edema General: No clubbing, No cyanosis and No edema Psych Appearance: grossly normal Mental Status: mental status grossly normal Speech and movement: Normal speech and movement present Results Reviewed Results Reviewed: Noninvasive arterial testing dated 11/09/2022 demonstrates CARMELLA on the right of 0.77 and on the left of 0.59 with patent stent. Assessment & Plan Assessment & Plan (1) PAD (peripheral artery disease): Comment: 10/29/2021 - left SFA plasty and stent 11/02/2021- left 3rd toe amp Code(s): I73.9 - Peripheral vascular disease, unspecified Plan: In short patient has stable claudication. I did review the pathophysiology of peripheral vascular disease with the patient. In addition we did discuss routine conservative measures including a healthy diet and the importance of exercise and ambulation. We did discuss risk factor modification. The patient will continue to to follow-up with surveillance follow-up in approximately 1 year. Thank you for allowing us to participate in this patient's care. If there are any questions or concerns please do not hesitate to contact us. Orders: Orders US arterial duplex LE BI 364 Days I73.9 - Peripheral vascular disease, unspecified Coding Level of Care Code Est Pt Level 4 (83087) Diagnoses PAD (peripheral artery disease) I73.9
[2022-11-30 14:08] VITALS: BMI 22.0
== END 2022-11-30 14:31 | disposition home or self-care (01) ==
PROVIDERS: PCP Hospitalist; Visit Provider Surgery Vascular Surgery
DX: I73.9 Peripheral vascular disease, unspecified (principal); Z89.422 Acquired absence of other left toe(s)
CPT/HCPCS: 99213

== ENCOUNTER → 2022-11-30 13:58 | Outpatient (BNVA) | payer MEDICAID, SELFPAY | PROVIDERS: PCP Hospitalist; Visit Provider Surgery Vascular Surgery | DX: I73.9 Peripheral vascular disease, unspecified (principal); Z89.422 Acquired absence of other left toe(s) | CPT/HCPCS: 99212 ==

== ENCOUNTER 2022-12-20 11:23 | Inpatient (IN) | payer MEDICAID, SELFPAY ==
[2022-12-20] VITALS (20 sets, daily range): BP systolic 116–175; BP diastolic 41–93; PULSE 94–108; RESP 16–20; TEMP 36.3–37.2; O2SAT 96–100; BMI 19.2; BMI 18.9
--- NOTE | 2022-12-20 11:37 | PC.NURSE ---
pt alert to self. brought in by ambulance from [facility] after getting 5am labs drawn and a hemoglobin resulting as 6.0. pt reports no chest or abdominal pain at this time. pt denies dizziness.
--- NOTE | 2022-12-20 11:48 | ED_ITS ---
HPI - General Adult General Chief complaint: Recheck/Abnormal Lab/Rx Stated complaint: LOW HEMOGLOBIN Time Seen by Provider: 12/20/22 11:27 Source: patient and EMS Mode of arrival: EMS Limitations: other (brain anoxia) History of Present Illness HPI narrative: This is a 52 years old male presented to the emergency department with a chief complain of low H&H, he is a resident of residential he had blood work done as outpatient his hemoglobin was 6 he therefore was sent here for evaluation and possible blood transfusion. The patient has history of anoxic brain injury, Onset (ago): day(s) (1) Radiation: non-radiation Severity: moderate Relieving factors: none Exacerbating factors: none Related Data Home Medications Medication Instructions Recorded Confirmed acetaminophen 325 mg tablet 650 mg PO Q4H PRN Pain 10/27/21 12/20/22 aluminum-mag hydroxide-simethicone 30 ml PO Q4H PRN Indigestion 10/27/21 12/20/22 200 mg-200 mg-20 mg/5 mL oral susp ascorbic acid (vitamin C) 500 mg 500 mg PO DAILY 10/27/21 12/20/22 tablet benztropine 0.5 mg tablet 0.5 mg PO BID 10/27/21 12/20/22 benztropine 1 mg tablet 1 mg PO BID 10/27/21 12/20/22 dapagliflozin propanediol 10 mg 10 mg PO DAILY 10/27/21 12/20/22 tablet (Farxiga) dulaglutide 1.5 mg/0.5 mL 1.5 mg subcut FR 10/27/21 12/20/22 subcutaneous pen injector ([facility]) gemfibrozil 600 mg tablet 600 mg PO BID 10/27/21 12/20/22 haloperidol 1 mg tablet 1 mg PO BID 10/27/21 12/20/22 insulin detemir U-100 100 unit/mL 45 unit subcut DAILY 10/27/21 12/20/22 subcutaneous solution (Levemir U-100 Insulin) insulin lispro 100 unit/mL 0 sliding scale dose subcut 10/27/21 12/20/22 subcutaneous solution (Humalog USEASDIRECTD U-100 Insulin) lactulose 10 gram/15 mL (15 mL) 90 ml PO TID 10/27/21 12/20/22 oral solution lanolin alcohols-mineral 1 appl topical BEDTIME 10/27/21 12/20/22 oil-w.petrolatum-ceresin topical cream (Minerin Creme topical) metformin 1,000 mg tablet 1,000 mg PO BID 10/27/21 12/20/22 miconazole nitrate 2 % topical 1 appl topical BID PRN athlete's 10/27/21 12/20/22 powder (Miconazorb AF) foot propranolol 10 mg tablet 5 mg PO BID 10/27/21 12/20/22 rifaximin 550 mg tablet 550 mg PO BID 10/27/21 12/20/22 simethicone 80 mg chewable tablet 160 mg PO BID 10/27/21 12/20/22 bisacodyl 10 mg rectal suppository 10 mg HI DAILY PRN Constipation 12/20/22 12/20/22 ferrous sulfate 324 mg (65 mg 324 mg PO DAILY 12/20/22 12/20/22 iron) tablet,delayed release insulin detemir U-100 100 unit/mL 20 unit subcut BEDTIME 12/20/22 12/20/22 (3 mL) subcutaneous pen (Levemir FlexPen) sennosides 8.6 mg-docusate sodium 1 tab-cap PO BEDTIME 12/20/22 12/20/22 50 mg capsule (Senna Plus) Previous Rx's Medication Instructions Recorded aspirin 81 mg chewable tablet 81 mg PO DAILY #0 tabs 11/03/21 sennosides 8.6 mg tablet (senna) 8.6 mg PO Q24H Constipation #30 09/17/22 tabs Allergies Allergy/AdvReac Type Severity Reaction Status Date / Time No Known Allergies Allergy Verified 11/30/22 14:09 [No Known Allergies*] Review of Systems 2 Review of Systems: Yes Unobtainable due to mental condition [facility] Past Medical History Medical History Anoxic brain damage Diabetes Dysphagia Encephalopathy Hyperlipemia Social History Social History Household Members: Other Household Members Other:: care one Housing: Correction Do you presently have visiting nurse or other home services: No Alcohol intake: unknown Patient Tobacco Use Status: Former Tobacco user Tobacco use type: Cigarette Cigarette Packs Per Day: 1 Cigarettes Per Day: 20.0 Smoked in Last 30 Days: No Second Hand Smoke Exposure: Yes Use of substances other than those prescribed or required for medical reasons: Unknown Advance Directives: No Advance Directives Information Provided: Yes Nutrition Risks: No Nutritional Risk service: No Current occupational status: disabled Physical Exam ED Vital Signs: Vital Signs - 24 hr 12/20/22 11:37 Temperature 98.2 F Pulse Rate 100 Respiratory Rate 18 Blood Pressure 117/59 L Pulse Oximetry 98 Oxygen Delivery Method Room Air BMI result Body Mass Index 19.2 Const General: cooperative Nutritional Appearance: well nourished [facility] Head: Yes normal to inspection General nose exam: Normal external nose present Face and sinus: Yes normal facial exam Mouth: Normal oral and palatal mucosa present Neck Neck: Yes normal visual inspection Chest Chest palpation & inspection: normal inspection of the chest Resp Effort & Inspection: normal respiratory effort Auscultation: clear to auscultation bilaterally Cardio Jugular venous distension: no JVD Rate: regular rate Rhythm: regular rhythm GI Inspection: Yes normal to inspection Palpation (GI): Soft to palpation, not firm, nontender and no guarding Percussion: Yes normal to percussion Auscultation: normal bowel sounds Skin General skin exam: no rashes or lesions noted, elasticity normal and turgor normal Lesions: no lesions Rashes: no rashes Wounds: no wounds Extrem General: Yes normal to inspection Right upper extremity: normal to inspection Course Course Course Narrative: pt presented with Anemia and Heme pos stools d/w GI and hospitalist will admit and transfuse Reevaluation(s) Reevaluation #1: Spoke with the guardian Jose Vega consented for blood transfusion Time: 13:25 Medications Administered Discontinued Medications Generic Name Dose Route Start Last Admin Trade Name Freq PRN Reason Stop Dose Admin Diphenhydramine HCl 50 mg 12/20/22 15:03 12/20/22 15:10 Diphenhydramine Hcl 50 Mg/Ml Vial IM 12/20/22 15:04 50 mg ONCE ONE Administration Haloperidol Lactate 5 mg 12/20/22 15:03 12/20/22 15:10 Haloperidol Lactate 5 Mg/Ml Vial IM 12/20/22 15:04 5 mg ONCE ONE Administration Sodium Chloride 100 mls @ 100 mls/hr 12/20/22 12:37 12/20/22 14:15 Ns IV 12/20/22 13:36 100 mls/hr ONCE ONE Administration Nicotine 21 mg 12/20/22 15:04 12/20/22 15:10 Nicotine 21 Mg Patch.Td24 TRANSDERMA 12/20/22 15:05 21 mg ONCE ONE Administration Pantoprazole Sodium 40 mg 12/20/22 13:03 12/20/22 13:32 Pantoprazole Sodium 40 Mg/10 Ml Vial IVPUSH 12/20/22 13:04 40 mg ONCE ONE Administration Medical Decision Making Medical Decision Making [facility] Narrative: Patient presents to the emergency department from the residential with the low H&H, will recheck blood work and if his low will administer transfusion Differential Diagnosis Differential Diagnoses: The differential diagnosis associated with the presentation includes Iron deficiency anemia/GI bleeding Admission/Observation Consideration of admission/observation: Escalation of care including admission/observation considered Consult Healthcare Provider Management of the patient was discussed with: Pension Administrator GI DR Alegre Lab Data [facility] Lab Attestation statement: I reviewed the patient's lab results. 12/20/22 12:18 12/20/22 12:18 Labs: Lab Results 12/20/22 12/20/22 Range/Units 12:03 12:18 WBC 14.5 H (4.8-10.8) X10*3/uL RBC 2.53 L D (4.60-5.80) X10*6/uL Hgb 6.6 L* D (14.0-18.0) g/dl Hct 22.6 L D (42.0-52.0) % MCV 89.3 (80.0-98.0) fL MCH 26.1 L (27.0-33.0) pg MCHC 29.2 L (31.0-36.0) g/dl RDW 15.5 (11.0-16.0) % Plt Count 426 H (160-400) X10*3/uL MPV 10.7 (9.4-12.4) fL Immature Gran % (Auto) 0.7 H (0.0-0.4) % Neut % (Auto) 82.4 H (45-73) % Lymph % (Auto) 9.1 L (20-40) % Ward % (Auto) 7.1 (2-11) % Eos % (Auto) 0.1 (0-4) % Baso % (Auto) 0.6 (0-2) % Lymph # (Auto) 1.3 (1.2-4.9) X10*3/uL Ward # (Auto) 1.0 (0.1-1.2) X10*3/uL Eos # (Auto) 0.0 (0.0-0.4) X10*3/uL Baso # (Auto) 0.1 (0.0-0.2) X10*3/uL Abs Immat Gran (auto) 0.10 H (0.00-0.03) X10*3/uL Absolute Neuts (auto) 12.0 H (2.0-8.3) x10*3/uL Absolute Nucleated RBC 0.060 H (0.0-0.012) X10*3/uL Nucleated RBC % (auto) 0.4 H (0.0-0.2) /100WBC Sodium 148 H (135-145) mmol/L Potassium 4.2 (3.3-5.1) mmol/L Chloride 115 H (96-108) mmol/L Carbon Dioxide 22 (22-29) mmol/L Anion Gap 15 (12-20) BUN 53 H (9-16) mg/dL Creatinine 1.38 (0.5-1.4) mg/dL Estim Creat Clear Calc 55.5 Estimated GFR 54 Random Glucose 233 H (60-115) mg/dL Calcium 10.3 H D (8.4-10.2) mg/dL Iron 66 (45-160) mcg/dL TIBC 302 (228-428) mcg/dL % Saturation 22 (15-50) % Unsat Iron Binding 236 ug/dL Total Bilirubin 0.2 (0.0-1.0) mg/dL AST 9 (5-37) U/L ALT 7 (0-40) U/L Alkaline Phosphatase 68 (39-117) U/L Total Protein 7.4 (6.5-8.0) g/dL Albumin 4.3 (3.5-5.0) g/dL Stool Occult Blood POSITIVE (NEGATIVE) Blood Type O Positive Antibody Screen NEGATIVE Crossmatch See Detail Independent Historian spoke with guardiam External Record Review External record reviewed: Other (long term record) residential care one record Chronic Conditions dementia Discharge Plan Discharge Clinical Impression: Anemia, Heme positive stool Patient Disposition: Admitted As Inpatient
--- NOTE | 2022-12-20 11:50 | PC.NURSE ---
at bedside doing stool occult. pt tolerated proedure well.
[2022-12-20 12:14] LABS: OBS Int Ctl Valid YES; OBS1 POSITIVE (NEGATIVE)
[2022-12-20 12:24] LABS: MANUAL DIFF FLAG NO
[2022-12-20 12:32] LABS: Basophils Absolute Auto 0.1 X10*3/uL (0.0-0.2); Basophils Percent Auto 0.6 % (0-2); Eosinophils Percent Auto 0.1 % (0-4); Hematocrit 22.6 % (42.0-52.0); Imm Gran Pct Auto 0.7 % (0.0-0.4); Lymphocytes Absolute Auto 1.3 X10*3/uL (1.2-4.9); Lymphocytes Percent Auto 9.1 % (20-40); Mean Corpuscular HGB Conc 29.2 g/dl (31.0-36.0); Mean Corpuscular Hemoglobin 26.1 pg (27.0-33.0); Mean Corpuscular Volume 89.3 fL (80.0-98.0); Mean Platelet Volume 10.7 fL (9.4-12.4); Monocytes Percent Auto 7.1 % (2-11); NRBC Pct Auto 0.4 /100WBC (0.0-0.2); Neutrophils Percent Auto 82.4 % (45-73); Platelet Count 426 X10*3/uL (160-400); Red Blood Count 2.53 X10*6/uL (4.60-5.80); Red Cell Distribution Width 15.5 % (11.0-16.0); White Blood Count 14.5 X10*3/uL (4.8-10.8)
[2022-12-20 12:37] LABS: Hemoglobin 6.6 g/dl (14.0-18.0)
[2022-12-20 12:38] LABS: Alanine Aminotransferase 7 U/L (0-40); Albumin Level 4.3 g/dL (3.5-5.0); Alkaline Phosphatase 68 U/L (39-117); Anion Gap 15 (12-20); Aspartate Amino Transferase 9 U/L (5-37); Bilirubin Total 0.2 mg/dL (0.0-1.0); Blood Urea Nitrogen 53 mg/dL (9-16); Calcium 10.3 mg/dL (8.4-10.2); Carbon Dioxide 22 mmol/L (22-29); Chloride 115 mmol/L (96-108); Creatinine Clr Calc Pharmacy 55.5; Estimated Glomerular Filt Rate 54; Glucose Random 233 mg/dL (60-115); Potassium 4.2 mmol/L (3.3-5.1); Sodium 148 mmol/L (135-145); Total Protein 7.4 g/dL (6.5-8.0)
--- NOTE | 2022-12-20 13:17 | PM.IMHP ---
History of Present Illness Date of Service: 12/20/22 Chief Complaint: rectal bleeding 52-year-old man presenting from [facility] with a low hemoglobin and hematocrit. Blood work was done at the facility and found him to be severely anemic. He was sent to the ER for blood transfusion. He has a history of anoxic brain injury and is alert and awake but confused and has been pulling at his IVs. He was on aspirin and Plavix. Hemoglobin was 6.6, hematocrit 22.6, white blood cell count 14.5, sodium 148, stool occult positive. Patient was given IV fluid, 1 unit of PRBCs was ordered. He also received IV Protonix. He will be admitted for further management and treatment of Review of Systems Review of Systems: Yes Unobtainable due to mental status [facility] Medical History Anoxic brain damage Diabetes Dysphagia Encephalopathy Hyperlipemia Pertinent family history: Unable to obtain due to history of anoxic brain injury Social History Household Members: Other Household Members Other:: care one Housing: Prison Do you presently have visiting nurse or other home services: No Alcohol intake: unknown Patient Tobacco Use Status: Former Tobacco user Tobacco use type: Cigarette Cigarette Packs Per Day: 1 Cigarettes Per Day: 20.0 Smoked in Last 30 Days: No Second Hand Smoke Exposure: Yes Use of substances other than those prescribed or required for medical reasons: Unknown Advance Directives: No Advance Directives Information Provided: Yes Nutrition Risks: No Nutritional Risk service: No Current occupational status: disabled Meds Allergies Allergy/AdvReac Type Severity Reaction Status Date / Time No Known Allergies Allergy Verified 11/30/22 14:09 [No Known Allergies*] Active Medications: Current Medications Acetaminophen (Acetaminophen 325 Mg Tablet) 650 mg PO Q6H PRN PRN Reason: Pain, Mild (Pain Scale 1-3) Sodium Chloride (Ns) 100 mls @ 100 mls/hr IV ONCE ONE Stop: 12/20/22 13:36 Ondansetron HCl (Ondansetron Hcl 4 Mg/2 Ml Vial) 4 mg IVPUSH Q8H PRN PRN Reason: Nausea and Vomiting Home Medications Medication Instructions Recorded Confirmed Last Taken Type acetaminophen 325 mg tablet 650 mg PO Q4H PRN Pain 10/27/21 12/20/22 Unknown History aluminum-mag hydroxide-simethicone 30 ml PO Q4H PRN Indigestion 10/27/21 12/20/22 Unknown History 200 mg-200 mg-20 mg/5 mL oral susp ascorbic acid (vitamin C) 500 mg 500 mg PO DAILY 10/27/21 12/20/22 Unknown History tablet benztropine 0.5 mg tablet 0.5 mg PO BID 10/27/21 12/20/22 Unknown History benztropine 1 mg tablet 1 mg PO BID 10/27/21 12/20/22 Unknown History dapagliflozin propanediol 10 mg 10 mg PO DAILY 10/27/21 12/20/22 Unknown History tablet (Farxiga) dulaglutide 1.5 mg/0.5 mL 1.5 mg subcut FR 10/27/21 12/20/22 Unknown History subcutaneous pen injector (Trulicity) gemfibrozil 600 mg tablet 600 mg PO BID 10/27/21 12/20/22 Unknown History haloperidol 1 mg tablet 1 mg PO BID 10/27/21 12/20/22 Unknown History insulin detemir U-100 100 unit/mL 45 unit subcut DAILY 10/27/21 12/20/22 Unknown History subcutaneous solution (Levemir U-100 Insulin) insulin lispro 100 unit/mL 0 sliding scale dose subcut 10/27/21 12/20/22 Unknown History subcutaneous solution (Humalog USEASDIRECTD U-100 Insulin) lactulose 10 gram/15 mL (15 mL) 90 ml PO TID 10/27/21 12/20/22 Unknown History oral solution lanolin alcohols-mineral 1 appl topical BEDTIME 10/27/21 12/20/22 Unknown History oil-w.petrolatum-ceresin topical cream (Minerin Creme topical) metformin 1,000 mg tablet 1,000 mg PO BID 10/27/21 12/20/22 Unknown History miconazole nitrate 2 % topical 1 appl topical BID PRN athlete's 10/27/21 12/20/22 Unknown History powder (Miconazorb AF) foot propranolol 10 mg tablet 5 mg PO BID 10/27/21 12/20/22 Unknown History rifaximin 550 mg tablet 550 mg PO BID 10/27/21 12/20/22 Unknown History simethicone 80 mg chewable tablet 160 mg PO BID 10/27/21 12/20/22 Unknown History bisacodyl 10 mg rectal suppository 10 mg OR DAILY PRN Constipation 12/20/22 12/20/22 Unknown History ferrous sulfate 324 mg (65 mg 324 mg PO DAILY 12/20/22 12/20/22 Unknown History iron) tablet,delayed release insulin detemir U-100 100 unit/mL 20 unit subcut BEDTIME 12/20/22 12/20/22 Unknown History (3 mL) subcutaneous pen (Levemir FlexPen) sennosides 8.6 mg-docusate sodium 1 tab-cap PO BEDTIME 12/20/22 12/20/22 Unknown History 50 mg capsule (Senna Plus) Physical Exam Vital Signs and Narrative: Vital Signs: Last Vital Signs Temp 98.2 F 12/20/22 11:37 Pulse 100 12/20/22 11:37 Resp 18 12/20/22 11:37 BP 117/59 L 12/20/22 11:37 Pulse Ox 98 12/20/22 11:37 O2 Del Method Room Air 12/20/22 11:37 BMI result Body Mass Index 19.2 Appearing in no acute distress head is normocephalic atraumatic eyes pupils are PERRLA sclera is anicteric mouth throat mucous membranes are intact and moist neck is supple no lymphadenopathy, no JVD noted lung sounds are clear to auscultation heart regular rate rhythm, clear S1, S2 positive bowel sounds, abdomen is soft, nontender neuro patient is alert, confused Results Labs 12/20/22 12:18 12/20/22 12:18 Labs: Laboratory Results - last 24 hr 12/20/22 12/20/22 12:03 12:18 MCV 89.3 MCH 26.1 L MCHC 29.2 L RDW 15.5 Plt Count 426 H MPV 10.7 Immature Gran % (Auto) 0.7 H Neut % (Auto) 82.4 H Lymph % (Auto) 9.1 L [place] % (Auto) 7.1 Eos % (Auto) 0.1 Baso % (Auto) 0.6 Lymph # (Auto) 1.3 [place] # (Auto) 1.0 Eos # (Auto) 0.0 Baso # (Auto) 0.1 Abs Immat Gran (auto) 0.10 H Absolute Neuts (auto) 12.0 H Absolute Nucleated RBC 0.060 H Nucleated RBC % (auto) 0.4 H Anion Gap 15 Estim Creat Clear Calc 55.5 Estimated GFR 54 Random Glucose 233 H Calcium 10.3 H D Total Bilirubin 0.2 AST 9 ALT 7 Alkaline Phosphatase 68 Total Protein 7.4 Albumin 4.3 Stool Occult Blood POSITIVE Blood Type O Positive Antibody Screen NEGATIVE Crossmatch See Detail Assessment and Plan (1) Heme positive stool: Status: Acute Plan 52-year-old man presented from [facility] with acute GI bleed possibly related to aspirin and Plavix GI bleed. Unspecified Hemoglobin 6.6, hematocrit 22.6 Stool occult positive 1 unit of packed red blood cells ordered Recheck a CBC this afternoon GI consultation Hold aspirin and Plavix Hyponatremia Mild, likely secondary to hypovolemia Will recheck BMP this afternoon after patient receives blood Diabetes mellitus Sliding scale, ADA diet Mental health Continue home medications DVT prophylaxis with pneumatic compression boots Full code Two inpatient midnights for treatment of acute GI bleed requiring IV blood transfusions and specialty consultation Time Spent With Patient Time: Total time managing care of this patient today ____ minutes. Quality Stroke Does the patient have a stroke diagnosis?: No VTE Prior VTE?: No VTE Risk Level:: Medical - moderate - high VTE Device Contraindication: N/A - Device Ordered VTE Drug Contraindication: Treatment Not Indicated
[2022-12-20] MEDS: Pantoprazole Sodium 40 MG/10 ML VIAL IVPUSH ×2 (13:32→18:33)
[2022-12-20 13:36] LABS: Appearance Urine Clear; Color Urine Yellow; Glucose Urine UA >=1000 mg/dL (Negative); Leukocyte Esterase Urine Negative (Negative); Nitrite Urine Negative (Negative); Specific Gravity - Urine >= 1.030 (1.005-1.025); UMIC TRIGGER UACC YES; Urine Blood Negative (Negative); Urine Ketones Negative (Negative); Urine Protein Negative (Neg-Trace)
[2022-12-20 13:46] LABS: Iron 66 mcg/dL (45-160); Percent Iron Saturation 22 % (15-50); Total Iron Binding Capacity 302 mcg/dL (228-428); Unsaturated Iron Binding 236 ug/dL
[2022-12-20 13:47] LABS: Bacteria Urine None Seen (None Seen); Hyaline Casts Urine 0-2 /LPF (0-2); RBC Urine 0-2 /HPF (0-2); Squamous Epithelial Cell Urine 0-2 /HPF (0-2); WBC Urine 0-5 /HPF (0-5)
--- NOTE | 2022-12-20 14:08 | PHA.MEDREC ---
Pharmacy Consult ? Medication Reconciliation Pharmacy has completed the medication reconciliation. List from [facility]
--- NOTE | 2022-12-20 14:18 | PC.NURSE ---
pt hadsone unit of blood hanging, pt tolerating procedure well. lung sounds clear bilaterally.
[2022-12-20] MEDS: diphenhydrAMINE HCL 50 MG/ML VIAL IM (15:10)
[2022-12-20] MEDS: Haloperidol Lactate 5 MG/ML VIAL IM (15:10)
[2022-12-20] MEDS: Nicotine 21 MG PATCH.TD24 TRANSDERMA (15:10)
--- NOTE | 2022-12-20 15:12 | PC.NURSE ---
pt extremely agitated pulling out medical equipment. per pt medicated for agitation. sitter at bedside.
--- NOTE | 2022-12-20 16:14 | PC.NURSE ---
pt continues to pull on medical equipment. pt very agitated and yelling. medications not working. provider aware.
--- NOTE | 2022-12-20 16:19 | PC.NURSE ---
soft restraints placed per provider telephone order. pt tolerated placement well.
--- NOTE | 2022-12-20 16:20 | PC.NURSE ---
pt cleaned up, linens changed, amie changed. condom catheter placed. pt tolerated well.
--- NOTE | 2022-12-20 17:24 | P.EN_ITS ---
Event Note Date of Service: 12/20/22 Event Note: GI Consult-Full note dictated-History from ER staff and EMR Imp: 52 yo male with a history of TBI presenting with significant normocytic anemia and reported dark Heme + stool. He is on chronic aspirin and Iron. His iron studies are normal. There has been no sign of active bleeding here. His abdominal exam is benign. He is receiving a blood transfusion. His BUN is >> Creatinine. Diff dx: UGI bleeding from erosive gastritis, PUD, neoplasm. It could also be a colonic source such as polyps, neoplasm, AVM's. Rec: Would try to do at least an EGD while here. I called his guardian, Healthcare Applications Analyst Jose Vega and left a VM that he will need to call and give his consent for me or Dr. Ambrosio to proceed with an EGD with MAC or GA. Given his TBI and level of intermittent agitation, I do not think he would cooperate with a bowel prep and therefore a colonoscopy would not be feasible. Depending on the results of the EGD we could consider a CT scan of the abdomen and pelvis to try to R/O a significant colon lesion, although even that may not be doable due to his TBI and agitation. In the meantime, follow his Hgb, check PT/INR, hold Iron, treat with a PPI, keep NPO for possible EGD tomorrow. Thanks Time Spent With Patient Time: Total time managing care of this patient today ____ minutes.
--- NOTE | 2022-12-20 17:36 | PC.NURSE ---
pt out of the soft restrains, pt calmer and blood products almost done infusing. sitter in place
--- NOTE | 2022-12-20 17:41 | MHC.SHP ---
Pre-Procedural Eval Section A Date of Service: 12/21/22 The patient is an INPATIENT: Yes The History & Physical has been completed within 30 days and I have reviewed it.: Yes Section B Chief Complaint: GI bleed Allergies: Allergies Allergy/AdvReac Type Severity Reaction Status Date / Time No Known Allergies Allergy Verified 11/30/22 14:09 [No Known Allergies*] Plan I have reviewed the history and physical and performed a pertinent physical examination on my patient. No changes have occurred unless specified. Time Spent With Patient Time: Total time managing care of this patient today ____ minutes.
--- NOTE | 2022-12-20 18:20 | PC.NURSE ---
one unit of blood finished. pt lung sounds clear bilaterally.
[2022-12-20 18:36] LABS: Hematocrit 26.1 % (42.0-52.0); Hemoglobin 7.9 g/dl (14.0-18.0)
[2022-12-20 18:46] LABS: INTERNATIONAL NORM RATIO 1.1 (0.9-1.1); Prothrombin Time 13.8 SEC (11.1-13.3)
[2022-12-20 18:50] LABS: Anion Gap 16 (12-20); Blood Urea Nitrogen 48 mg/dL (9-16); Calcium 9.7 mg/dL (8.4-10.2); Carbon Dioxide 19 mmol/L (22-29); Chloride 119 mmol/L (96-108); Creatinine Clr Calc Pharmacy 74.4; Estimated Glomerular Filt Rate > 60; Glucose Random 65 mg/dL (60-115); Potassium 3.9 mmol/L (3.3-5.1); Sodium 150 mmol/L (135-145)
--- NOTE | 2022-12-20 19:13 | PC.NURSE ---
assumed care of pt at 1900, resting quietly, NPO, 1:1 at bedside, pending bed assignment.
--- NOTE | 2022-12-20 19:43 | PC.NURSE ---
RN-Rn report called to S3, pt to transport w sitter.
[2022-12-20] MEDS: OLANZapine 10 MG VIAL IM (22:29)
[2022-12-21] VITALS (9 sets, daily range): BP systolic 126–167; BP diastolic 60–84; PULSE 68–109; RESP 16–20; TEMP 36.1–37; O2SAT 94–100; BMI 18.9
--- NOTE | 2022-12-21 00:35 | CONS_ITS ---
DATE OF SERVICE: 12/20/2022 REASON FOR CONSULTATION: Heme-positive stool and anemia. HISTORY OF PRESENT ILLNESS: This has been obtained completely from the medical record and from the ER staff as the patient has a traumatic brain injury and cannot give any history. The patient is on a daily 81 mg aspirin and was transferred to the ER today from his long-term care facility due to having been found to have significant anemia with a hemoglobin of 6. There has been no report of any obvious bleeding, although his stool has been somewhat dark and is heme-positive. He does take iron in addition to his daily aspirin. He does have a history of peripheral vascular disease. There has been no reported hematemesis nor coffee-grounds emesis. There has been no report of definitive melena nor hematochezia. I do not see any record of his having had any recent GI procedures, at least at this hospital. Upon admission here, he was found to have a significant anemia, similar to the laboratory finding at his long-term care facility. His hemoglobin was 6.6 at noon today. He did have a hemoglobin of 12.1 in 11/2021. The patient is currently receiving 1 unit of blood. He has not shown any signs of GI bleeding here in the hospital. He has been hemodynamically stable. Aside from his low dose aspirin, I do not see any other type of blood thinner on his medication list at this time. CURRENT MEDICATIONS: Include acetaminophen, diphenhydramine, Haldol p.r.n., nicotine patch, Zofran p.r.n. His medications at his long-term care facility include acetaminophen, aspirin 1 mg, benztropine, Farxiga, ferrous sulfate, gemfibrozil, haloperidol, insulin, lactulose, metformin, propranolol, rifaximin, Senokot, simethicone, and Trulicity. PAST MEDICAL HISTORY: Peripheral vascular disease. 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 He has diabetes mellitus, traumatic brain injury, hyperlipidemia, and anemia. The remainder of the history is currently not known. SOCIAL HISTORY: He lives at a long-term care facility. FAMILY HISTORY: Unknown. REVIEW OF SYSTEMS: Not obtainable. PHYSICAL EXAMINATION: GENERAL: The patient is an alert male, in no distress. He appears comfortable, but is confused. SKIN: Warm and dry. HEENT: Anicteric sclerae. ABDOMEN: Soft, nondistended, nontender with normal bowel sounds. LABORATORY DATA: White blood cell count 14.5, hemoglobin 6.6 today compared to 12.1 in 11/2021. MCV 89, platelets 426,000. Sodium 148, potassium 4.2, chloride 115, CO2 of 22, BUN 53, creatinine 1.4. In 11/2021, his BUN was 10 with a creatinine of 0.7. Random blood sugar was 233. Calcium 10.3. Iron 66. Iron saturation 22%. Normal LFTs. Albumin 4.3. Stool was Hemoccult positive. IMPRESSION: The patient is a 52-year-old male, who is unable to give any type of history, but is found to be significantly anemic with a normal MCV, but heme-positive stool. His iron studies are normal. This may speak for relatively acute blood loss from an upper GI source, given the elevated BUN out of proportion to creatinine and his chronic use of aspirin. This may represent erosive gastritis or ulcer disease. An upper GI neoplasm is in the differential diagnosis as well. Given his age, one would also want to exclude any type of colonic source of bleeding such as neoplasm or angiodysplasia. At this point, given his traumatic brain injury and inability to cooperate, I do not think he would be a candidate for colonoscopy as he would certainly not take the bowel prep and therefore the procedure would not be feasible. However, I would recommend an upper endoscopy prior to discharge with monitored anesthesia care to see if that can be accomplished before being discharged such that if need be, he can go back on aspirin therapy. I did put out a call to his guardian, Resident Caregiver Jose Vega with a phone number of [phone], but only got his voicemail. I did advise him on the phone through the voicemail that we did want to do an upper endoscopy and he would need to call us to give us permission for that. In the meantime, I will continue to follow his hemoglobin and other laboratories including a PT with INR. I would start him on a PPI and keep him n.p.o. until we do the procedure. If the endoscopy is nonrevealing another potential option would be for him to undergo a CT scan of the abdomen and pelvis to try to rule out at least a significant colon lesion, although even a CT scan may not be feasible if he remains agitated and uncooperative. I would also hold his iron supplement in the meantime. We shall await to hear from his guardian, Resident Caregiver, Jose Vega, phone #[phone]. Thank you for the consultation. MD DALE Duvall/LISANDRA / [phone] MTDCatalina
[2022-12-21] MEDS: Pantoprazole Sodium 40 MG/10 ML VIAL IVPUSH (05:27)
[2022-12-21 07:22] LABS: MANUAL DIFF FLAG NO
[2022-12-21 07:26] LABS: Basophils Absolute Auto 0.1 X10*3/uL (0.0-0.2); Basophils Percent Auto 0.8 % (0-2); Eosinophils Absolute Auto 0.2 X10*3/uL (0.0-0.4); Eosinophils Percent Auto 1.7 % (0-4); Hematocrit 25.4 % (42.0-52.0); Hemoglobin 7.6 g/dl (14.0-18.0); Imm Gran Abs Auto 0.04 X10*3/uL (0.00-0.03); Imm Gran Pct Auto 0.4 % (0.0-0.4); Lymphocytes Absolute Auto 1.4 X10*3/uL (1.2-4.9); Lymphocytes Percent Auto 14.1 % (20-40); Mean Corpuscular HGB Conc 29.9 g/dl (31.0-36.0); Mean Corpuscular Hemoglobin 27.1 pg (27.0-33.0); Mean Corpuscular Volume 90.7 fL (80.0-98.0); Mean Platelet Volume 10.9 fL (9.4-12.4); Monocytes Absolute Auto 1.1 X10*3/uL (0.1-1.2); Monocytes Percent Auto 11.7 % (2-11); NRBC Pct Auto 0.3 /100WBC (0.0-0.2); Neutrophils Percent Auto 71.3 % (45-73); Platelet Count 377 X10*3/uL (160-400); White Blood Count 9.8 X10*3/uL (4.8-10.8)
[2022-12-21 07:44] LABS: Glucose, Whole Blood 68 mg/dL (60-115)
[2022-12-21] MEDS: Dextrose 50 % 25 GM/50 ML SYRINGE IVPUSH (07:45)
[2022-12-21 08:14] LABS: Glucose, Whole Blood 169 mg/dL (60-115)
--- NOTE | 2022-12-21 08:16 | HO.PM.IMPN ---
Subjective Subjective Date of Service: 12/21/22 Review of Systems 52-year-old man from [facility] presenting with GI bleed Alert but confused and occasionally combative Physical Exam Vital Signs: Vital Signs: Last Vital Signs Temp 97.6 F 12/21/22 04:00 Pulse 68 12/21/22 04:00 Resp 18 12/21/22 04:00 BP 129/79 12/21/22 04:00 Pulse Ox 98 12/21/22 04:00 O2 Del Method Room Air 12/21/22 04:00 BMI result Body Mass Index 18.9 Appearing in no acute distress lung sounds are clear to auscultation heart regular rate rhythm, clear S1, S2 positive bowel sounds, abdomen is soft, nontender neuro patient is alert, confused and occasionally combative Objective Data Active Medications Acetaminophen (Acetaminophen 325 Mg Tablet) 650 mg PO Q6H PRN PRN Reason: Pain, Mild (Pain Scale 1-3) Al Hydroxide/Mg Hydroxide (Magnesium Hydrox/Alum Hydrox 30 Ml Oral.Susp) 30 ml PO Q4H PRN PRN Reason: Indigestion Ascorbic Acid (Ascorbic Acid 500 Mg Tablet) 500 mg PO DAILY TIM Benztropine Mesylate (Benztropine Mesylate 0.5 Mg Tablet) 0.5 mg PO BID TIM Benztropine Mesylate (Benztropine Mesylate 1 Mg Tablet) 1 mg PO BID TIM Bisacodyl (Bisacodyl 10 Mg Supp.Rect) 10 mg NC DAILY PRN PRN Reason: Constipation Dextrose (Dextrose 50 % 25 Gm/50 Ml Syringe) 25 gm IVPUSH Q15M PRN; Protocol PRN Reason: per Hypoglycemia Standing Ord. Last Admin: 12/21/22 07:45 Dose: 25 gm Documented By: RAQUEL Ferrous Sulfate (Ferrous Sulfate 324 Mg Tablet.Dr) 324 mg PO DAILY TIM Gemfibrozil (Gemfibrozil 600 Mg Tablet) 600 mg PO BID TIM Glucose (Glucose Gel 15 Gm Gel..Gram.) 15 gm PO Q15M PRN; Protocol PRN Reason: per Hypoglycemia Standing Ord. Haloperidol (Haloperidol 1 Mg Tablet) 1 mg PO BID TIM Dextrose (D5w) 1,000 mls @ 75 mls/hr IVCONT .[id number] TIM Insulin Glargine (Insulin Glargine,Hum.Rec.Anlog 100 Unit/Ml 10 Ml Vial) 14 unit SUBCUT BEDTIME [facility] Insulin Glargine (Insulin Glargine,Hum.Rec.Anlog 100 Unit/Ml 10 Ml Vial) 31 unit SUBCUT DAILY [facility] Insulin Human Lispro (Insulin Lispro 100 Unit/Ml 3 Ml Vial) 0 unit SUBCUT QIDACHS TIM; Protocol Lactulose (Lactulose 20 Gm/30 Ml Solution) 60 gm PO TID [facility] Ondansetron HCl (Ondansetron Hcl 4 Mg/2 Ml Vial) 4 mg IVPUSH Q8H PRN PRN Reason: Nausea and Vomiting Pantoprazole Sodium (Pantoprazole Sodium 40 Mg/10 Ml Vial) 40 mg IVPUSH BID@0630,1630 [facility] Last Admin: 12/21/22 05:27 Dose: 40 mg Documented By: CONY Propranolol HCl (Propranolol Hcl 10 Mg Tablet) 5 mg PO BID [facility]; Protocol Senna (Sennosides 8.6 Mg Tablet) 8.6 mg PO Q24H [facility] Simethicone (Simethicone 80 Mg Tab.Chew) 160 mg PO BID [facility] Labs 12/21/22 05:43 12/21/22 05:43 Labs: Laboratory Results - last 24 hr 12/20/22 12/20/22 12/20/22 12:03 12:18 13:28 MCV 89.3 MCH 26.1 L MCHC 29.2 L RDW 15.5 Plt Count 426 H MPV 10.7 Immature Gran % (Auto) 0.7 H Neut % (Auto) 82.4 H Lymph % (Auto) 9.1 L [place] % (Auto) 7.1 Eos % (Auto) 0.1 Baso % (Auto) 0.6 Lymph # (Auto) 1.3 [place] # (Auto) 1.0 Eos # (Auto) 0.0 Baso # (Auto) 0.1 Abs Immat Gran (auto) 0.10 H Absolute Neuts (auto) 12.0 H Absolute Nucleated RBC 0.060 H Nucleated RBC % (auto) 0.4 H PT INR Anion Gap 15 Estim Creat Clear Calc 55.5 Estimated GFR 54 POC Glucose Random Glucose 233 H Calcium 10.3 H D Magnesium Iron 66 TIBC 302 % Saturation 22 Unsat Iron Binding 236 Total Bilirubin 0.2 AST 9 ALT 7 Alkaline Phosphatase 68 Total Protein 7.4 Albumin 4.3 Urine Color Yellow Urine Appearance Clear Urine pH 5.0 Ur Specific [place] >= 1.030 H Urine Protein Negative Urine Glucose (UA) >=1000 H Urine Ketones Negative Urine Blood Negative Urine Nitrite Negative Ur Leukocyte Esterase Negative Urine RBC 0-2 Urine WBC 0-5 Ur Squamous Epith Cells 0-2 Urine Bacteria None Seen Hyaline Casts 0-2 Stool Occult Blood POSITIVE Blood Type O Positive Antibody Screen NEGATIVE Crossmatch See Detail 12/20/22 12/21/22 12/21/22 18:27 05:43 07:40 MCV 90.7 MCH 27.1 MCHC 29.9 L RDW 15.0 Plt Count 377 MPV 10.9 Immature Gran % (Auto) 0.4 Neut % (Auto) 71.3 Lymph % (Auto) 14.1 L [place] % (Auto) 11.7 H Eos % (Auto) 1.7 Baso % (Auto) 0.8 Lymph # (Auto) 1.4 [place] # (Auto) 1.1 Eos # (Auto) 0.2 Baso # (Auto) 0.1 Abs Immat Gran (auto) 0.04 H Absolute Neuts (auto) 7.0 Absolute Nucleated RBC 0.030 H Nucleated RBC % (auto) 0.3 H PT 13.8 H INR 1.1 Anion Gap 16 Estim Creat Clear Calc 74.4 Estimated GFR > 60 POC Glucose 68 Random Glucose 65 Calcium 9.7 Magnesium Cancelled Iron TIBC % Saturation Unsat Iron Binding Total Bilirubin AST ALT Alkaline Phosphatase Total Protein Albumin Urine Color Urine Appearance Urine pH Ur Specific [place] Urine Protein Urine Glucose (UA) Urine Ketones Urine Blood Urine Nitrite Ur Leukocyte Esterase Urine RBC Urine WBC Ur Squamous Epith Cells Urine Bacteria Hyaline Casts Stool Occult Blood Blood Type Antibody Screen Crossmatch 12/21/22 08:09 MCV MCH MCHC RDW Plt Count MPV Immature Gran % (Auto) Neut % (Auto) Lymph % (Auto) [place] % (Auto) Eos % (Auto) Baso % (Auto) Lymph # (Auto) [place] # (Auto) Eos # (Auto) Baso # (Auto) Abs Immat Gran (auto) Absolute Neuts (auto) Absolute Nucleated RBC Nucleated RBC % (auto) PT INR Anion Gap Estim Creat Clear Calc Estimated GFR POC Glucose 169 H Random Glucose Calcium Magnesium Iron TIBC % Saturation Unsat Iron Binding Total Bilirubin AST ALT Alkaline Phosphatase Total Protein Albumin Urine Color Urine Appearance Urine pH Ur Specific [place] Urine Protein Urine Glucose (UA) Urine Ketones Urine Blood Urine Nitrite Ur Leukocyte Esterase Urine RBC Urine WBC Ur Squamous Epith Cells Urine Bacteria Hyaline Casts Stool Occult Blood Blood Type Antibody Screen Crossmatch Assessment and Plan (1) Anemia: Status: Acute Plan 52-year-old man presented from [facility] with acute GI bleed possibly related to aspirin and Plavix GI bleed. Unspecified Hemoglobin 6.6, hematocrit 22.6 on admission Stool occult positive s/p 2 unit of packed red blood cells transfused GI consultation> NPO, plan for EGD after guardian is notified Hold aspirin Hyponatremia Mild, likely secondary to hypovolemia Start D5W at 75hr Diabetes mellitus with episode of hypoglycemia D 50 given today Continue Sliding scale, ADA diet Continue Long-acting insulin, but hold for hypoglycemia as patient is NPO Mental health Continue home medications DVT prophylaxis with pneumatic compression boots Attending Dr. Merrill Full code Continued hospital stay for treatment of acute GI bleed requiring IV blood transfusions and specialty consultation Time Spent With Patient Time: Total time managing care of this patient today ____ minutes. Quality Stroke Does the patient have a stroke diagnosis?: No VTE Prior VTE?: No VTE Risk Level:: Medical - moderate - high VTE Device Contraindication: N/A - Device Ordered VTE Drug Contraindication: Treatment Not Indicated
[2022-12-21 08:34] LABS: Anion Gap 16 (12-20); Blood Urea Nitrogen 38 mg/dL (9-16); Calcium 9.3 mg/dL (8.4-10.2); Carbon Dioxide 22 mmol/L (22-29); Chloride 118 mmol/L (96-108); Creatinine Clr Calc Pharmacy 94.2; Estimated Glomerular Filt Rate > 60; Glucose Random 42 mg/dL (60-115); Magnesium 2.3 mg/dL (1.6-2.6); Potassium 3.6 mmol/L (3.3-5.1); Sodium 152 mmol/L (135-145)
[2022-12-21] MEDS: Dextrose 5 % 1,000 ML 75 ML IVCONT (09:39)
[2022-12-21] MEDS: Propranolol HCL 10 MG TABLET 5 MG PO ×2 (09:46→21:39)
[2022-12-21] MEDS: Benztropine Mesylate 1 MG TABLET PO ×2 (09:46→21:37)
[2022-12-21] MEDS: Benztropine Mesylate 0.5 MG TABLET PO ×2 (09:46→21:37)
[2022-12-21] MEDS: HaloperidoL 1 MG TABLET PO ×2 (09:46→21:37)
--- NOTE | 2022-12-21 10:32 | PC.NURSE ---
Pt had hypoglycemic event this morning all insulins held as per KERVIN Bryant
[2022-12-21 11:28] LABS: Glucose, Whole Blood 91 mg/dL (60-115)
--- NOTE | 2022-12-21 12:07 | P.CONAN_ITS ---
HPI - Anesthesia Eval Consult details Narrative: Anaemia, EGD PMFSH Active Problems Active Problems: All Active Problems (Updated 12/20/22 @ 13:05 by Romel Garrett MD) Heme positive stool (Acute) Anemia (Acute) PAD (peripheral artery disease) (Acute) Encephalopathy (Acute) Anoxic brain damage (Acute) Diabetes (Acute) Osteomyelitis of toe (Acute) Traumatic closed displaced fracture of tibial plafond with malunion of left lower extremity (Acute) Fracture of left tibial plafond without involvement of fibula (Acute) Past Medical History Medical History Anoxic brain damage Diabetes Dysphagia Encephalopathy Hyperlipemia Family History Family history of problems with anesthesia: No Surgical History History of Problems with Anesthesia: No Social History Social History Household Members: Other Household Members Other:: [facility] Housing: Assisted Living Facility Housing Other:: [facility] Do you presently have visiting nurse or other home services: Yes (pt comes from [facility]) Unable to assess alcohol history related to: Unknown Alcohol intake: unknown Patient Tobacco Use Status: Former Tobacco user Tobacco use type: Cigarette Cigarette Packs Per Day: 1 Cigarettes Per Day: 20.0 Second Hand Smoke Exposure: Yes service: No Current occupational status: disabled Meds Allergies Allergy/AdvReac Type Severity Reaction Status Date / Time No Known Allergies Allergy Verified 11/30/22 14:09 [No Known Allergies*] Active Medications: Current Medications Acetaminophen (Acetaminophen 325 Mg Tablet) 650 mg PO Q6H PRN PRN Reason: Pain, Mild (Pain Scale 1-3) Al Hydroxide/Mg Hydroxide (Magnesium Hydrox/Alum Hydrox 30 Ml Oral.Susp) 30 ml PO Q4H PRN PRN Reason: Indigestion Ascorbic Acid (Ascorbic Acid 500 Mg Tablet) 500 mg PO DAILY [facility] Last Admin: 12/21/22 10:30 Dose: Not Given Benztropine Mesylate (Benztropine Mesylate 0.5 Mg Tablet) 0.5 mg PO BID [facility] Last Admin: 12/21/22 09:46 Dose: 0.5 mg Benztropine Mesylate (Benztropine Mesylate 1 Mg Tablet) 1 mg PO BID [facility] Last Admin: 12/21/22 09:46 Dose: 1 mg Bisacodyl (Bisacodyl 10 Mg Supp.Rect) 10 mg [place] DAILY PRN PRN Reason: Constipation Dextrose (Dextrose 50 % 25 Gm/50 Ml Syringe) 25 gm IVPUSH Q15M PRN; Protocol PRN Reason: per Hypoglycemia Standing Ord. Last Admin: 12/21/22 07:45 Dose: 25 gm Ferrous Sulfate (Ferrous Sulfate 324 Mg Tablet.Dr) 324 mg PO DAILY [facility] Last Admin: 12/21/22 10:30 Dose: Not Given Gemfibrozil (Gemfibrozil 600 Mg Tablet) 600 mg PO BID [facility] Last Admin: 12/21/22 10:30 Dose: Not Given Glucose (Glucose Gel 15 Gm Gel..Gram.) 15 gm PO Q15M PRN; Protocol PRN Reason: per Hypoglycemia Standing Ord. Haloperidol (Haloperidol 1 Mg Tablet) 1 mg PO BID [facility] Last Admin: 12/21/22 09:46 Dose: 1 mg Dextrose (D5w) 1,000 mls @ 75 mls/hr IVCONT .[id number] [facility] Last Admin: 12/21/22 09:39 Dose: 75 mls/hr Insulin Glargine (Insulin Glargine,Hum.Rec.Anlog 100 Unit/Ml 10 Ml Vial) 14 unit SUBCUT BEDTIME [facility] Insulin Glargine (Insulin Glargine,Hum.Rec.Anlog 100 Unit/Ml 10 Ml Vial) 31 unit SUBCUT DAILY [facility] Last Admin: 12/21/22 10:30 Dose: Not Given Insulin Human Lispro (Insulin Lispro 100 Unit/Ml 3 Ml Vial) 0 unit SUBCUT QIDACHS [facility]; Protocol Last Admin: 12/21/22 10:29 Dose: Not Given Lactulose (Lactulose 20 Gm/30 Ml Solution) 60 gm PO TID [facility] Last Admin: 12/21/22 10:31 Dose: Not Given Ondansetron HCl (Ondansetron Hcl 4 Mg/2 Ml Vial) 4 mg IVPUSH Q8H PRN PRN Reason: Nausea and Vomiting Pantoprazole Sodium (Pantoprazole Sodium 40 Mg/10 Ml Vial) 40 mg IVPUSH BID@0630,1630 [facility] Last Admin: 12/21/22 05:27 Dose: 40 mg Propranolol HCl (Propranolol Hcl 10 Mg Tablet) 5 mg PO BID [facility]; Protocol Last Admin: 12/21/22 09:46 Dose: 5 mg Senna (Sennosides 8.6 Mg Tablet) 8.6 mg PO Q24H [facility] Last Admin: 12/21/22 10:29 Dose: Not Given Simethicone (Simethicone 80 Mg Tab.Chew) 160 mg PO BID [facility] Last Admin: 12/21/22 10:31 Dose: Not Given Home Medications Medication Instructions Recorded Confirmed Last Taken Type acetaminophen 325 mg tablet 650 mg PO Q4H PRN Pain 10/27/21 12/20/22 Unknown History aluminum-mag hydroxide-simethicone 30 ml PO Q4H PRN Indigestion 10/27/21 12/20/22 Unknown History 200 mg-200 mg-20 mg/5 mL oral susp ascorbic acid (vitamin C) 500 mg 500 mg PO DAILY 10/27/21 12/20/22 Unknown History tablet benztropine 0.5 mg tablet 0.5 mg PO BID 10/27/21 12/20/22 Unknown History benztropine 1 mg tablet 1 mg PO BID 10/27/21 12/20/22 Unknown History dapagliflozin propanediol 10 mg 10 mg PO DAILY 10/27/21 12/20/22 Unknown History tablet (Farxiga) dulaglutide 1.5 mg/0.5 mL 1.5 mg subcut FR 10/27/21 12/20/22 Unknown History subcutaneous pen injector (Trulicity) gemfibrozil 600 mg tablet 600 mg PO BID 10/27/21 12/20/22 Unknown History haloperidol 1 mg tablet 1 mg PO BID 10/27/21 12/20/22 Unknown History insulin detemir U-100 100 unit/mL 45 unit subcut DAILY 10/27/21 12/20/22 Unknown History subcutaneous solution (Levemir U-100 Insulin) insulin lispro 100 unit/mL 0 sliding scale dose subcut 10/27/21 12/20/22 Unknown History subcutaneous solution (Humalog USEASDIRECTD U-100 Insulin) lactulose 10 gram/15 mL (15 mL) 90 ml PO TID 10/27/21 12/20/22 Unknown History oral solution lanolin alcohols-mineral 1 appl topical BEDTIME 10/27/21 12/20/22 Unknown History oil-w.petrolatum-ceresin topical cream (Minerin Creme topical) metformin 1,000 mg tablet 1,000 mg PO BID 10/27/21 12/20/22 Unknown History miconazole nitrate 2 % topical 1 appl topical BID PRN athlete's 10/27/2112/03 Unknown History powder (Miconazorb AF) foot propranolol 10 mg tablet 5 mg PO BID 10/27/21 12/20/22 Unknown History rifaximin 550 mg tablet 550 mg PO BID 10/27/21 12/20/22 Unknown History simethicone 80 mg chewable tablet 160 mg PO BID 10/27/21 12/20/22 Unknown History bisacodyl 10 mg rectal suppository 10 mg [place] DAILY PRN Constipation 12/20/22 12/20/22 Unknown History ferrous sulfate 324 mg (65 mg 324 mg PO DAILY 12/20/22 12/20/22 Unknown History iron) tablet,delayed release insulin detemir U-100 100 unit/mL 20 unit subcut BEDTIME 12/20/22 12/20/22 Unknown History (3 mL) subcutaneous pen (Levemir FlexPen) sennosides 8.6 mg-docusate sodium 1 tab-cap PO BEDTIME 12/20/22 12/20/22 Unknown History 50 mg capsule (Senna Plus) Exam Exam Date and Time: December 21, 2022 1207 Height,Weight and Vital Signs: Height 6 ft Weight 63.1 kg Last Vital Signs Temp 98.6 F 12/21/22 11:59 Pulse 98 12/21/22 11:59 Resp 18 12/21/22 11:59 BP 145/81 H 12/21/22 11:59 Pulse Ox 100 12/21/22 11:59 O2 Del Method Room Air 12/21/22 11:59 Pertinent Lab Results Pertinent Lab Results: Laboratory Tests 12/20/22 12/20/22 12/20/22 12:03 12:18 13:28 WBC 14.5 H RBC 2.53 L D Hgb 6.6 L* D Hct 22.6 L D MCV 89.3 MCH 26.1 L MCHC 29.2 L RDW 15.5 Plt Count 426 H MPV 10.7 Immature Gran % (Auto) 0.7 H Neut % (Auto) 82.4 H Lymph % (Auto) 9.1 L [place] % (Auto) 7.1 Eos % (Auto) 0.1 Baso % (Auto) 0.6 Lymph # (Auto) 1.3 [place] # (Auto) 1.0 Eos # (Auto) 0.0 Baso # (Auto) 0.1 Abs Immat Gran (auto) 0.10 H Absolute Neuts (auto) 12.0 H Absolute Nucleated RBC 0.060 H Nucleated RBC % (auto) 0.4 H Smear Path Review SEE NOTE PT INR Sodium 148 H Potassium 4.2 Chloride 115 H Carbon Dioxide 22 Anion Gap 15 BUN 53 H Creatinine 1.38 Estim Creat Clear Calc 55.5 Estimated GFR 54 POC Glucose Random Glucose 233 H Calcium 10.3 H D Magnesium Iron 66 TIBC 302 % Saturation 22 Unsat Iron Binding 236 Total Bilirubin 0.2 AST 9 ALT 7 Alkaline Phosphatase 68 Total Protein 7.4 Albumin 4.3 Urine Color Yellow Urine Appearance Clear Urine pH 5.0 Ur Specific [place] >= 1.030 H Urine Protein Negative Urine Glucose (UA) >=1000 H Urine Ketones Negative Urine Blood Negative Urine Nitrite Negative Ur Leukocyte Esterase Negative Urine RBC 0-2 Urine WBC 0-5 Ur Squamous Epith Cells 0-2 Urine Bacteria None Seen Hyaline Casts 0-2 Stool Occult Blood POSITIVE Blood Type O Positive Antibody Screen NEGATIVE Crossmatch See Detail 12/20/22 12/21/22 12/21/22 18:27 05:43 05:43 WBC 9.8 RBC 2.80 L Hgb 7.9 L 7.6 L Hct 26.1 L 25.4 L MCV 90.7 MCH 27.1 MCHC 29.9 L RDW 15.0 Plt Count 377 MPV 10.9 Immature Gran % (Auto) 0.4 Neut % (Auto) 71.3 Lymph % (Auto) 14.1 L [place] % (Auto) 11.7 H Eos % (Auto) 1.7 Baso % (Auto) 0.8 Lymph # (Auto) 1.4 [place] # (Auto) 1.1 Eos # (Auto) 0.2 Baso # (Auto) 0.1 Abs Immat Gran (auto) 0.04 H Absolute Neuts (auto) 7.0 Absolute Nucleated RBC 0.030 H Nucleated RBC % (auto) 0.3 H Smear Path Review PT 13.8 H INR 1.1 Sodium 150 H 152 H Potassium 3.9 3.6 Chloride 119 H 118 H Carbon Dioxide 19 L 22 Anion Gap 16 16 BUN 48 H 38 H Creatinine 1.03 0.80 Estim Creat Clear Calc 74.4 94.2 Estimated GFR > 60 > 60 POC Glucose Random Glucose 65 42 L* Calcium 9.7 9.3 Magnesium 2.3 Cancelled Iron TIBC % Saturation Unsat Iron Binding Total Bilirubin AST ALT Alkaline Phosphatase Total Protein Albumin Urine Color Urine Appearance Urine pH Ur Specific [place] Urine Protein Urine Glucose (UA) Urine Ketones Urine Blood Urine Nitrite Ur Leukocyte Esterase Urine RBC Urine WBC Ur Squamous Epith Cells Urine Bacteria Hyaline Casts Stool Occult Blood Blood Type Antibody Screen Crossmatch 12/21/22 12/21/22 12/21/22 07:40 08:09 10:02 WBC RBC Hgb Hct MCV MCH MCHC RDW Plt Count MPV Immature Gran % (Auto) Neut % (Auto) Lymph % (Auto) [place] % (Auto) Eos % (Auto) Baso % (Auto) Lymph # (Auto) Andrew # (Auto) Eos # (Auto) Baso # (Auto) Abs Immat Gran (auto) Absolute Neuts (auto) Absolute Nucleated RBC Nucleated RBC % (auto) Smear Path Review PT INR Sodium Potassium Chloride Carbon Dioxide Anion Gap BUN Creatinine Estim Creat Clear Calc Estimated GFR POC Glucose 68 169 H Random Glucose Calcium Magnesium Iron TIBC % Saturation Unsat Iron Binding Total Bilirubin AST ALT Alkaline Phosphatase Total Protein Albumin Urine Color Urine Appearance Urine pH Ur Specific [place] Urine Protein Urine Glucose (UA) Urine Ketones Urine Blood Urine Nitrite Ur Leukocyte Esterase Urine RBC Urine WBC Ur Squamous Epith Cells Urine Bacteria Hyaline Casts Stool Occult Blood Blood Type O Positive Antibody Screen NEGATIVE Crossmatch See Detail 12/21/22 11:25 WBC RBC Hgb Hct MCV MCH MCHC RDW Plt Count MPV Immature Gran % (Auto) Neut % (Auto) Lymph % (Auto) [place] % (Auto) Eos % (Auto) Baso % (Auto) Lymph # (Auto) Andrew # (Auto) Eos # (Auto) Baso # (Auto) Abs Immat Gran (auto) Absolute Neuts (auto) Absolute Nucleated RBC Nucleated RBC % (auto) Smear Path Review PT INR Sodium Potassium Chloride Carbon Dioxide Anion Gap BUN Creatinine Estim Creat Clear Calc Estimated GFR POC Glucose 91 Random Glucose Calcium Magnesium Iron TIBC % Saturation Unsat Iron Binding Total Bilirubin AST ALT Alkaline Phosphatase Total Protein Albumin Urine Color Urine Appearance Urine pH Ur Specific [place] Urine Protein Urine Glucose (UA) Urine Ketones Urine Blood Urine Nitrite Ur Leukocyte Esterase Urine RBC Urine WBC Ur Squamous Epith Cells Urine Bacteria Hyaline Casts Stool Occult Blood Blood Type Antibody Screen Crossmatch Airway Mallampati Class: III TM Dist: <=3cm Neck ROM: Limited Heart: rrr Lungs: cta Assessment and Plan Assessment Anesthesia Assessment: Anesthesia Plan Discussed Final Anesthetic Review Family History of Problems with Anesthesia: No History of Problems with Anesthesia: No NPO: Yes ASA Class: IV Final Preanesthetic Review: No Changes in Pt Med Stat, Meds/Allgs Chart Reviewed, Consent Obtained/Reviewed and Anes Risks/Benef Reviewed Patient Risk: High Procedure Risk: Intermediate Anesthetic Plan Anesthetic Plan: MAC: and Agree w/ Assess. and Plan Disposition: Standard PACU
--- NOTE | 2022-12-21 12:52 | PC.NURSE ---
Pt lost Iv access . Multiple attempts to place IV by supervision and IR nurse without success . [employer] OPERATOR Aliyah Bryant notified . 1 unit of PRBC still pending transfusion
--- NOTE | 2022-12-21 13:14 | PC.NURSE ---
report called to LUTHER Chen
--- NOTE | 2022-12-21 13:48 | PM.OP ---
Brief Operative Note Date of Service: 12/21/22 Pre-op diagnosis: anemia heme pos stool abnormal ct scan colon Post-op diagnosis: same Procedure: colonoscopy Surgeon: Donavon Ambrosio Anesthesia: MAC Was an Rn Disease Management used for this Procedure?: No Estimated blood loss (mL): 0 Pathology: none sent Condition: stable Disposition: PACU
--- NOTE | 2022-12-21 13:49 | PM.EVENT ---
Event Note Date of Service: 12/21/22 Event Note: Colonoscopy note dictated Limited exam as pt did not take prep. No mucosal abnormalities, mass lesions or colitis identified. Rec: ok to restart anticoagulation follow hematocrit continue ppi advance diet. Time Spent With Patient Time: Total time managing care of this patient today ____ minutes.
[2022-12-21 14:14] LABS: Glucose, Whole Blood 106 mg/dL (60-115)
--- NOTE | 2022-12-21 14:15 | P.CONAN_ITS ---
[facility] Active Problems Active Problems: All Active Problems (Updated 12/20/22 @ 13:05 by Romel Garrett MD) Heme positive stool (Acute) Anemia (Acute) PAD (peripheral artery disease) (Acute) Encephalopathy (Acute) Anoxic brain damage (Acute) Diabetes (Acute) Osteomyelitis of toe (Acute) Traumatic closed displaced fracture of tibial plafond with malunion of left lower extremity (Acute) Fracture of left tibial plafond without involvement of fibula (Acute) Past Medical History Medical History Dysphagia Anoxic brain damage Hyperlipemia Encephalopathy Diabetes Family History Family history of problems with anesthesia: No Surgical History History of Problems with Anesthesia: No Social History Social History Household Members: Other Household Members Other:: [facility] Housing: Assisted Living Facility Housing Other:: [facility] Do you presently have visiting nurse or other home services: Yes (pt comes from [facility]) Unable to assess alcohol history related to: Unknown Alcohol intake: unknown Patient Tobacco Use Status: Former Tobacco user Tobacco use type: Cigarette Cigarette Packs Per Day: 1 Cigarettes Per Day: 20.0 Second Hand Smoke Exposure: No service: No Current occupational status: disabled Meds Allergies Allergy/AdvReac Type Severity Reaction Status Date / Time No Known Allergies Allergy Verified 11/30/22 14:09 [No Known Allergies*] Active Medications: Current Medications Acetaminophen (Acetaminophen 325 Mg Tablet) 650 mg PO Q6H PRN PRN Reason: Pain, Mild (Pain Scale 1-3) Al Hydroxide/Mg Hydroxide (Magnesium Hydrox/Alum Hydrox 30 Ml Oral.Susp) 30 ml PO Q4H PRN PRN Reason: Indigestion Ascorbic Acid (Ascorbic Acid 500 Mg Tablet) 500 mg PO DAILY [facility] Last Admin: 12/21/22 10:30 Dose: Not Given Benztropine Mesylate (Benztropine Mesylate 0.5 Mg Tablet) 0.5 mg PO BID [facility] Last Admin: 12/21/22 09:46 Dose: 0.5 mg Benztropine Mesylate (Benztropine Mesylate 1 Mg Tablet) 1 mg PO BID [facility] Last Admin: 12/21/22 09:46 Dose: 1 mg Bisacodyl (Bisacodyl 10 Mg Supp.Rect) 10 mg SC DAILY PRN PRN Reason: Constipation Dextrose (Dextrose 50 % 25 Gm/50 Ml Syringe) 25 gm IVPUSH Q15M PRN; Protocol PRN Reason: per Hypoglycemia Standing Ord. Last Admin: 12/21/22 07:45 Dose: 25 gm Ferrous Sulfate (Ferrous Sulfate 324 Mg Tablet.Dr) 324 mg PO DAILY [facility] Last Admin: 12/21/22 10:30 Dose: Not Given Gemfibrozil (Gemfibrozil 600 Mg Tablet) 600 mg PO BID [facility] Last Admin: 12/21/22 10:30 Dose: Not Given Glucose (Glucose Gel 15 Gm Gel..Gram.) 15 gm PO Q15M PRN; Protocol PRN Reason: per Hypoglycemia Standing Ord. Haloperidol (Haloperidol 1 Mg Tablet) 1 mg PO BID [facility] Last Admin: 12/21/22 09:46 Dose: 1 mg Dextrose (D5w) 1,000 mls @ 75 mls/hr IVCONT .[id number] [facility] Last Admin: 12/21/22 09:39 Dose: 75 mls/hr Insulin Glargine (Insulin Glargine,Hum.Rec.Anlog 100 Unit/Ml 10 Ml Vial) 14 unit SUBCUT BEDTIME [facility] Insulin Glargine (Insulin Glargine,Hum.Rec.Anlog 100 Unit/Ml 10 Ml Vial) 31 unit SUBCUT DAILY [facility] Last Admin: 12/21/22 10:30 Dose: Not Given Insulin Human Lispro (Insulin Lispro 100 Unit/Ml 3 Ml Vial) 0 unit SUBCUT QIDACHS [facility]; Protocol Last Admin: 12/21/22 10:29 Dose: Not Given Lactulose (Lactulose 20 Gm/30 Ml Solution) 60 gm PO TID [facility] Last Admin: 12/21/22 10:31 Dose: Not Given Ondansetron HCl (Ondansetron Hcl 4 Mg/2 Ml Vial) 4 mg IVPUSH Q8H PRN PRN Reason: Nausea and Vomiting Pantoprazole Sodium (Pantoprazole Sodium 40 Mg/10 Ml Vial) 40 mg IVPUSH BID@0630,1630 [facility] Last Admin: 12/21/22 05:27 Dose: 40 mg Propranolol HCl (Propranolol Hcl 10 Mg Tablet) 5 mg PO BID [facility]; Protocol Last Admin: 12/21/22 09:46 Dose: 5 mg Senna (Sennosides 8.6 Mg Tablet) 8.6 mg PO Q24H [facility] Last Admin: 12/21/22 10:29 Dose: Not Given Simethicone (Simethicone 80 Mg Tab.Chew) 160 mg PO BID [facility] Last Admin: 12/21/22 10:31 Dose: Not Given Home Medications Medication Instructions Recorded Confirmed Last Taken Type acetaminophen 325 mg tablet 650 mg PO Q4H PRN Pain 10/27/21 12/20/22 Unknown History aluminum-mag hydroxide-simethicone 30 ml PO Q4H PRN Indigestion 10/27/21 12/20/22 Unknown History 200 mg-200 mg-20 mg/5 mL oral susp ascorbic acid (vitamin C) 500 mg 500 mg PO DAILY 10/27/21 12/20/22 Unknown History tablet benztropine 0.5 mg tablet 0.5 mg PO BID 10/27/21 12/20/22 Unknown History benztropine 1 mg tablet 1 mg PO BID 10/27/21 12/20/22 Unknown History dapagliflozin propanediol 10 mg 10 mg PO DAILY 10/27/21 12/20/22 Unknown History tablet (Farxiga) dulaglutide 1.5 mg/0.5 mL 1.5 mg subcut FR 10/27/21 12/20/22 Unknown History subcutaneous pen injector (Trulicity) gemfibrozil 600 mg tablet 600 mg PO BID 10/27/21 12/20/22 Unknown History haloperidol 1 mg tablet 1 mg PO BID 10/27/21 12/20/22 Unknown History insulin detemir U-100 100 unit/mL 45 unit subcut DAILY 10/27/21 12/20/22 Unknown History subcutaneous solution (Levemir U-100 Insulin) insulin lispro 100 unit/mL 0 sliding scale dose subcut 10/27/21 12/20/22 Unknown History subcutaneous solution (Humalog USEASDIRECTD U-100 Insulin) lactulose 10 gram/15 mL (15 mL) 90 ml PO TID 10/27/21 12/20/22 Unknown History oral solution lanolin alcohols-mineral 1 appl topical BEDTIME 10/27/21 12/20/22 Unknown His tory oil-w.petrolatum-ceresin topical cream (Minerin Creme topical) metformin 1,000 mg tablet 1,000 mg PO BID 10/27/21 12/20/22 Unknown History miconazole nitrate 2 % topical 1 appl topical BID PRN athlete's 10/27/21 12/20/22 Unknown History powder (Miconazorb AF) foot propranolol 10 mg tablet 5 mg PO BID 10/27/21 12/20/22 Unknown History rifaximin 550 mg tablet 550 mg PO BID 10/27/21 12/20/22 Unknown History simethicone 80 mg chewable tablet 160 mg PO BID 10/27/21 12/20/22 Unknown History bisacodyl 10 mg rectal suppository 10 mg SC DAILY PRN Constipation 12/20/22 12/20/22 Unknown History ferrous sulfate 324 mg (65 mg 324 mg PO DAILY 12/20/22 12/20/22 Unknown History iron) tablet,delayed release insulin detemir U-100 100 unit/mL 20 unit subcut BEDTIME 12/20/22 12/20/22 Unknown History (3 mL) subcutaneous pen (Levemir FlexPen) sennosides 8.6 mg-docusate sodium 1 tab-cap PO BEDTIME 12/20/22 12/20/22 Unknown History 50 mg capsule (Senna Plus) Exam Exam Date and Time: December 21, 2022 1415 Height,Weight and Vital Signs: Height 6 ft Weight 63.1 kg Last Vital Signs Temp 97.6 F 12/21/22 13:49 Pulse 98 12/21/22 13:49 Resp 16 12/21/22 13:49 BP 143/78 H 12/21/22 13:49 Pulse Ox 100 12/21/22 13:49 O2 Del Method Room Air 12/21/22 11:59 Pertinent Lab Results Pertinent Lab Results: Laboratory Tests 12/20/22 12/20/22 12/20/22 12:03 12:18 13:28 WBC 14.5 H RBC 2.53 L D Hgb 6.6 L* D Hct 22.6 L D MCV 89.3 MCH 26.1 L MCHC 29.2 L RDW 15.5 Plt Count 426 H MPV 10.7 Immature Gran % (Auto) 0.7 H Neut % (Auto) 82.4 H Lymph % (Auto) 9.1 L [place] % (Auto) 7.1 Eos % (Auto) 0.1 Baso % (Auto) 0.6 Lymph # (Auto) 1.3 [place] # (Auto) 1.0 Eos # (Auto) 0.0 Baso # (Auto) 0.1 Abs Immat Gran (auto) 0.10 H Absolute Neuts (auto) 12.0 H Absolute Nucleated RBC 0.060 H Nucleated RBC % (auto) 0.4 H Smear Path Review SEE NOTE PT INR Sodium 148 H Potassium 4.2 Chloride 115 H Carbon Dioxide 22 Anion Gap 15 BUN 53 H Creatinine 1.38 Estim Creat Clear Calc 55.5 Estimated GFR 54 POC Glucose Random Glucose 233 H Calcium 10.3 H D Magnesium Iron 66 TIBC 302 % Saturation 22 Unsat Iron Binding 236 Total Bilirubin 0.2 AST 9 ALT 7 Alkaline Phosphatase 68 Total Protein 7.4 Albumin 4.3 Urine Color Yellow Urine Appearance Clear Urine pH 5.0 Ur Specific [place] >= 1.030 H Urine Protein Negative Urine Glucose (UA) >=1000 H Urine Ketones Negative Urine Blood Negative Urine Nitrite Negative Ur Leukocyte Esterase Negative Urine RBC 0-2 Urine WBC 0-5 Ur Squamous Epith Cells 0-2 Urine Bacteria None Seen Hyaline Casts 0-2 Stool Occult Blood POSITIVE Blood Type O Positive Antibody Screen NEGATIVE Crossmatch See Detail 12/20/22 12/21/22 12/21/22 18:27 05:43 05:43 WBC 9.8 RBC 2.80 L Hgb 7.9 L 7.6 L Hct 26.1 L 25.4 L MCV 90.7 MCH 27.1 MCHC 29.9 L RDW 15.0 Plt Count 377 MPV 10.9 Immature Gran % (Auto) 0.4 Neut % (Auto) 71.3 Lymph % (Auto) 14.1 L [place] % (Auto) 11.7 H Eos % (Auto) 1.7 Baso % (Auto) 0.8 Lymph # (Auto) 1.4 [place] # (Auto) 1.1 Eos # (Auto) 0.2 Baso # (Auto) 0.1 Abs Immat Gran (auto) 0.04 H Absolute Neuts (auto) 7.0 Absolute Nucleated RBC 0.030 H Nucleated RBC % (auto) 0.3 H Smear Path Review PT 13.8 H INR 1.1 Sodium 150 H 152 H Potassium 3.9 3.6 Chloride 119 H 118 H Carbon Dioxide 19 L 22 Anion Gap 16 16 BUN 48 H 38 H Creatinine 1.03 0.80 Estim Creat Clear Calc 74.4 94.2 Estimated GFR > 60 > 60 POC Glucose Random Glucose 65 42 L* Calcium 9.7 9.3 Magnesium 2.3 Cancelled Iron TIBC % Saturation Unsat Iron Binding Total Bilirubin AST ALT Alkaline Phosphatase Total Protein Albumin Urine Color Urine Appearance Urine pH Ur Specific [place] Urine Protein Urine Glucose (UA) Urine Ketones Urine Blood Urine Nitrite Ur Leukocyte Esterase Urine RBC Urine WBC Ur Squamous Epith Cells Urine Bacteria Hyaline Casts Stool Occult Blood Blood Type Antibody Screen Crossmatch 12/21/22 12/21/22 12/21/22 07:40 08:09 10:02 WBC RBC Hgb Hct MCV MCH MCHC RDW Plt Count MPV Immature Gran % (Auto) Neut % (Auto) Lymph % (Auto) [place] % (Auto) Eos % (Auto) Baso % (Auto) Lymph # (Auto) [place] # (Auto) Eos # (Auto) Baso # (Auto) Abs Immat Gran (auto) Absolute Neuts (auto) Absolute Nucleated RBC Nucleated RBC % (auto) Smear Path Review PT INR Sodium Potassium Chloride Carbon Dioxide Anion Gap BUN Creatinine Estim Creat Clear Calc Estimated GFR POC Glucose 68 169 H Random Glucose Calcium Magnesium Iron TIBC % Saturation Unsat Iron Binding Total Bilirubin AST ALT Alkaline Phosphatase Total Protein Albumin Urine Color Urine Appearance Urine pH Ur Specific [place] Urine Protein Urine Glucose (UA) Urine Ketones Urine Blood Urine Nitrite Ur Leukocyte Esterase Urine RBC Urine WBC Ur Squamous Epith Cells Urine Bacteria Hyaline Casts Stool Occult Blood Blood Type O Positive Antibody Screen NEGATIVE Crossmatch See Detail 12/21/22 12/21/22 11:25 13:49 WBC RBC Hgb Hct MCV MCH MCHC RDW Plt Count MPV Immature Gran % (Auto) Neut % (Auto) Lymph % (Auto) [place] % (Auto) Eos % (Auto) Baso % (Auto) Lymph # (Auto) [place] # (Auto) Eos # (Auto) Baso # (Auto) Abs Immat Gran (auto) Absolute Neuts (auto) Absolute Nucleated RBC Nucleated RBC % (auto) Smear Path Review PT INR Sodium Potassium Chloride Carbon Dioxide Anion Gap BUN Creatinine Estim Creat Clear Calc Estimated GFR POC Glucose 91 106 Random Glucose Calcium Magnesium Iron TIBC % Saturation Unsat Iron Binding Total Bilirubin AST ALT Alkaline Phosphatase Total Protein Albumin Urine Color Urine Appearance Urine pH Ur Specific [place] Urine Protein Urine Glucose (UA) Urine Ketones Urine Blood Urine Nitrite Ur Leukocyte Esterase Urine RBC Urine WBC Ur Squamous Epith Cells Urine Bacteria Hyaline Casts Stool Occult Blood Blood Type Antibody Screen Crossmatch Airway Mallampati Class: III TM Dist: >3cm Neck ROM: Full Heart: RRR Lungs: CTA Assessment and Plan Final Anesthetic Review Family History of Problems with Anesthesia: No History of Problems with Anesthesia: No NPO: Yes ASA Class: III and Emergency Final Preanesthetic Review: Meds/Allgs Chart Reviewed, Consent Obtained/Reviewed and Anes Risks/Benef Reviewed Patient Risk: Intermediate Procedure Risk: Low Anesthetic Plan Anesthetic Plan: MAC: Disposition: Standard PACU
--- NOTE | 2022-12-21 14:15 | MHC.CM.PN ---
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 UNABLE TO REACH GUARDIAN BY PHONE. COPY OF GUARDIANSHIP REQUESTED FROM CENTER. PLAN TO RETURN TO LTC AT [facility] ON DC VIA BLS TRANSPORT
--- NOTE | 2022-12-21 14:47 | PM.EVENT ---
Event Note Date of Service: 12/21/22 Event Note: EGD note dictated multiple nonbleeding ulcers in upper and mid esophagus. normal stomach and duodenum rec: advance to baseline diet hold asa as long as possible bid ppi x 1 month then daily repeat egd in 8-12 weeks. follow hct. Time Spent With Patient Time: Total time managing care of this patient today ____ minutes.
--- NOTE | 2022-12-21 14:51 | PM.OP ---
Brief Operative Note Date of Service: 12/21/22 Pre-op diagnosis: anemia, heme pos stools Post-op diagnosis: same (esophageal ulcers) Surgeon: Donavon Ambrosio Anesthesia: MAC Was an [employer] Melt Specialist used for this Procedure?: No Estimated blood loss (mL): 0 Pathology: none sent Condition: stable Disposition: PACU
--- NOTE | 2022-12-21 15:49 | P.CDIM_ITS ---
PROVIDER RESPONSE TEXT: To clarify, the appropriate diagnosis supported by the clinical indicators: Severe protein calorie Malnutrition QUERY TEXT: PHYSICIAN'S DOCUMENTATION REQUEST Date of Query: 12/21/2022 02:36 PM EDT Patient Name: Jorge Oliva Admit Date: 12/20/2022 Dear Aliyah Bryant, A review of the medical record indicates additional documentation may be needed. Please review below and update the documentation accordingly. Clinical Indicators: Height: ( ) 6 FT Weight: ( ) 63.1 kg BMI: ( ) 18.9 Other Clinical Notes Supporting Significance of the BMI: Per Nutritional Risk Assessment 12/21/22: on therapeutic diet 90% or < DBW If possible, please provide an associated diagnosis related to the abnormal BMI, such as: Underweight Weight loss Cachexia Severe protein calorie Malnutrition BMI is not significant Other (explain)Clinically unable to determine (explain)Thank you, Shagufta Stewart RN Use of terms such as suspected, likely, concern for, or probable (associated with a specific diagnosi s that is being evaluated, monitored, or treated as if it exists) are acceptable and can be coded in the inpatient se tting, when documented at the time of discharge. Please use your independent medical judgment in providing your response. THIS QUERY IS PART OF THE PERMANENT MEDICAL RECORD
[2022-12-21] MEDS: Lactulose 20 GM/30 ML SOLUTION 60 GM PO ×2 (16:08→21:36)
[2022-12-21] MEDS: Omeprazole 20 MG CAPSULE.DR PO (16:08)
[2022-12-21 16:25] LABS: Glucose, Whole Blood 100 mg/dL (60-115)
[2022-12-21 20:36] LABS: Glucose, Whole Blood 265 mg/dL (60-115)
[2022-12-21] MEDS: Insulin Glargine,Hum.rec.anlog 100 UNIT/ML 10 ML VIAL 14 UNIT SUBCUT (21:37)
[2022-12-21] MEDS: gemfibroziL 600 MG TABLET PO (21:37)
[2022-12-21] MEDS: Simethicone 80 MG TAB.CHEW 160 MG PO (21:37)
[2022-12-21] MEDS: Insulin Lispro 100 UNIT/ML 3 ML VIAL SUBCUT (21:38)
[2022-12-22 00:18] VITALS: BP 134/61; PULSE 112; RESP 18; TEMP 36.4; O2SAT 100
--- NOTE | 2022-12-22 00:42 | OP_ITS ---
DATE OF SERVICE: 12/21/2022 SURGEON: Donaovn Ambrosio MD INDICATIONS: Anemia and Hemoccult-positive stools. PREOPERATIVE DIAGNOSIS: POSTOPERATIVE DIAGNOSIS: PROCEDURE PERFORMED: Upper endoscopy. ESTIMATED BLOOD LOSS: COMPLICATIONS: ANESTHESIA: Monitored anesthesia care. ASSISTANTS: SPECIMENS: DESCRIPTION OF PROCEDURE: History and physical was performed. The risks and benefits of the procedure were explained to the patient's guardian and informed consent was obtained. The patient was placed in the left lateral decubitus position. The Olympus video gastroscope was introduced into the esophagus, stomach, and duodenum. Examination was performed. The scope was removed. He tolerated the procedure well and was taken to recovery area in stable condition. FINDINGS: Esophagus: There are multiple ulcers in the body of the esophagus, 3 just below the upper esophageal sphincter at about 20 to 22 cm and a 4th ulcer in the body of the esophagus between 27 and 28 cm. There was no active bleeding. There was a 5 cm hiatal hernia. The stomach was normal. Duodenum: The bulb and 2nd portion showed no ulceration. IMPRESSION: Esophageal ulcers. RECOMMENDATION: 1. Hold aspirin as long as possible. 2. B.i.d. proton pump inhibitor for 1 month and then daily indefinitely. 3. Consider repeat endoscopy in 12 weeks for reassessment of esophageal ulcers. MD ARIAN Lopez/CARINAL / [id number] MTDD
[2022-12-22 06:03] LABS: MANUAL DIFF FLAG NO
[2022-12-22 06:07] LABS: Basophils Percent Auto 0.6 % (0-2); Eosinophils Absolute Auto 0.1 X10*3/uL (0.0-0.4); Eosinophils Percent Auto 1.7 % (0-4); Hematocrit 24.4 % (42.0-52.0); Hemoglobin 7.2 g/dl (14.0-18.0); Imm Gran Abs Auto 0.01 X10*3/uL (0.00-0.03); Imm Gran Pct Auto 0.1 % (0.0-0.4); Lymphocytes Percent Auto 14.8 % (20-40); Mean Corpuscular HGB Conc 29.5 g/dl (31.0-36.0); Mean Corpuscular Hemoglobin 26.8 pg (27.0-33.0); Mean Corpuscular Volume 90.7 fL (80.0-98.0); Mean Platelet Volume 10.9 fL (9.4-12.4); Monocytes Absolute Auto 0.6 X10*3/uL (0.1-1.2); Neutrophils Absolute Auto 5.1 x10*3/uL (2.0-8.3); Neutrophils Percent Auto 73.8 % (45-73); Platelet Count 342 X10*3/uL (160-400); Red Blood Count 2.69 X10*6/uL (4.60-5.80); Red Cell Distribution Width 15.2 % (11.0-16.0); White Blood Count 6.9 X10*3/uL (4.8-10.8)
[2022-12-22 06:22] LABS: Anion Gap 13 (12-20); Blood Urea Nitrogen 20 mg/dL (9-16); Carbon Dioxide 22 mmol/L (22-29); Chloride 115 mmol/L (96-108); Creatinine Clr Calc Pharmacy 95.4; Estimated Glomerular Filt Rate > 60; Glucose Random 222 mg/dL (60-115); Potassium 3.8 mmol/L (3.3-5.1); Sodium 146 mmol/L (135-145)
[2022-12-22 08:00] LABS: Glucose, Whole Blood 179 mg/dL (60-115)
[2022-12-22] MEDS: Simethicone 80 MG TAB.CHEW 160 MG PO (08:01)
[2022-12-22] MEDS: Sennosides 8.6 MG TABLET PO (08:02)
[2022-12-22] MEDS: gemfibroziL 600 MG TABLET PO (08:02)
[2022-12-22] MEDS: HaloperidoL 1 MG TABLET PO (08:02)
[2022-12-22] MEDS: Ferrous Sulfate 324 MG TABLET.DR PO (08:02)
[2022-12-22] MEDS: Ascorbic Acid 500 MG TABLET PO (08:02)
[2022-12-22] MEDS: Benztropine Mesylate 1 MG TABLET PO (08:02)
[2022-12-22] MEDS: Benztropine Mesylate 0.5 MG TABLET PO (08:03)
[2022-12-22] MEDS: Omeprazole 20 MG CAPSULE.DR PO (08:03)
[2022-12-22] MEDS: Propranolol HCL 10 MG TABLET 5 MG PO (08:04)
[2022-12-22] MEDS: Lactulose 20 GM/30 ML SOLUTION 60 GM PO (08:04)
[2022-12-22] MEDS: Insulin Glargine,Hum.rec.anlog 100 UNIT/ML 10 ML VIAL 31 UNIT SUBCUT (08:04)
[2022-12-22 08:35] VITALS: BP 141/61; PULSE 100; RESP 20; TEMP 36.1; O2SAT 99
--- NOTE | 2022-12-22 09:45 | MHC.CM.PN ---
[facility] UPDATED IN [facility].
[2022-12-22 11:03] LABS: Glucose, Whole Blood 352 mg/dL (60-115)
[2022-12-22] MEDS: Insulin Lispro 100 UNIT/ML 3 ML VIAL SUBCUT (11:26)
--- NOTE | 2022-12-22 13:05 | P.DS_ITS ---
DS: Providers Provider Date of Service: 12/22/22 Date of admission: 12/20/22 13:10 Date of discharge: 12/22/22 Primary care physician: Apolinar Olmstead DO Consults: 12/20/22 12:43 Consult to Gastroenterology Stat Consulting Provider: Suraj Gibson Reason for consultation: anemia heme pos stools Has provider been notified: No 12/20/22 13:07 Consult to Gastroenterology Routine Consulting Provider: Suraj Gibson Reason for consultation: GI bleed DS: Diagnosis Discharge Diagnosis (1) Anemia: Status: Acute (2) Esophageal ulceration: Status: Acute (3) Anoxic brain damage: Status: Acute DS: Summary Hospital Course Hospital Course: 52-year-old man presenting from [facility] with a low hemoglobin and hematocrit. Blood work was done at the facility and found him to be severely anemic. He was sent to the ER for blood transfusion. He has a history of anoxic brain injury and is alert and awake but confused and has been pulling at his IVs. He was on aspirin and Plavix. Hemoglobin was 6.6, hematocrit 22.6, white blood cell count 14.5, sodium 148, stool occult positive. Patient was given IV fluid, 1 unit of PRBCs was ordered. He also received IV Protonix. He will be admitted for further management and treatment . Hospital Course Admitted to general medical floor where he remained cooperative to care. He was seen in consultation by GI and on 12/21/2022 underwent upper endoscopy by Dr. Ambrosio. This demonstrated multiple nonbleeding esophageal ulcerations. His count remains stable; an attempt was made to gain venous access however patient immediately pulled access out. Given overall history and presentation, will transfer back to [facility] where he has more at ease. Will treat ulcerations with Carafate/omeprazole; give iron 325 with vitamin-C 500 mg daily and check serial CBCs; 1st in 1 week. At the time of discharge she is medically stable. I will follow him at [facility] Time Spent with Patient Time attestation: Total time managing care of this patient today ____ minutes. Discharge coordination time: Greater than 30 minutes Quality: Safe Use of Opioids Does Pt have an Active Cancer Diagnosis on the Problem List?: No Quality: Stroke Does the patient have a stroke diagnosis?: No Physical Exam Vital Signs: Vital Signs: Last Vital Signs Temp 96.9 F 12/22/22 08:35 Pulse 100 12/22/22 08:35 Resp 20 12/22/22 08:35 BP 141/61 H 12/22/22 08:35 Pulse Ox 99 12/22/22 08:35 O2 Del Method Room Air 12/22/22 08:35 O2 Flow Rate 0 12/21/22 15:04 BMI result Body Mass Index 18.9 Const: Other: Awake alert confused (baseline) Resp: Other: Clear to auscultation bilaterally no rales rhonchi wheezes Cardio: Other: No S4; positive S1-S2; no S3 murmurs rubs or gallops GI: Other: Soft nontender nondistended normoactive bowel sounds Extrem: Other: No edema bilaterally DS: Data Data Completed and Pending Completed studies during hospitalization [Text1]: Procedures Detachment at Left 3rd Toe, Complete, Open Approach (10/27/21) Dilation of Left Femoral Artery with Intraluminal Device, Percutaneous Approach (10/27/21) Labs on day of discharge: Laboratory Results - last 24 hr 12/21/22 12/21/22 12/21/22 10:02 13:49 16:21 WBC RBC Hgb Hct MCV MCH MCHC RDW Plt Count MPV Immature Gran % (Auto) Neut % (Auto) Lymph % (Auto) [place] % (Auto) Eos % (Auto) Baso % (Auto) Lymph # (Auto) [place] # (Auto) Eos # (Auto) Baso # (Auto) Abs Immat Gran (auto) Absolute Neuts (auto) Absolute Nucleated RBC Nucleated RBC % (auto) Sodium Potassium Chloride Carbon Dioxide Anion Gap BUN Creatinine Estim Creat Clear Calc Estimated GFR POC Glucose 106 100 Random Glucose Calcium Blood Type O Positive Antibody Screen NEGATIVE Crossmatch See Detail 12/21/22 12/22/22 12/22/22 20:29 05:33 07:10 WBC 6.9 RBC 2.69 L Hgb 7.2 L Hct 24.4 L MCV 90.7 MCH 26.8 L MCHC 29.5 L RDW 15.2 Plt Count 342 MPV 10.9 Immature Gran % (Auto) 0.1 Neut % (Auto) 73.8 H Lymph % (Auto) 14.8 L [place] % (Auto) 9.0 Eos % (Auto) 1.7 Baso % (Auto) 0.6 Lymph # (Auto) 1.0 L [place] # (Auto) 0.6 Eos # (Auto) 0.1 Baso # (Auto) 0.0 Abs Immat Gran (auto) 0.01 Absolute Neuts (auto) 5.1 Absolute Nucleated RBC 0.000 Nucleated RBC % (auto) 0.0 Sodium 146 H Potassium 3.8 Chloride 115 H Carbon Dioxide 22 Anion Gap 13 BUN 20 H Creatinine 0.79 Estim Creat Clear Calc 95.4 Estimated GFR > 60 POC Glucose 265 H 179 H Random Glucose 222 H Calcium 9.0 Blood Type Antibody Screen Crossmatch 12/22/22 10:59 WBC RBC Hgb Hct MCV MCH MCHC RDW Plt Count MPV Immature Gran % (Auto) Neut % (Auto) Lymph % (Auto) [place] % (Auto) Eos % (Auto) Baso % (Auto) Lymph # (Auto) [place] # (Auto) Eos # (Auto) Baso # (Auto) Abs Immat Gran (auto) Absolute Neuts (auto) Absolute Nucleated RBC Nucleated RBC % (auto) Sodium Potassium Chloride Carbon Dioxide Anion Gap BUN Creatinine Estim Creat Clear Calc Estimated GFR POC Glucose 352 H* Random Glucose Calcium Blood Type Antibody Screen Crossmatch Discharge Plan Discharge Anticipated Discharge Date/Time: 12/22/22 12:55 Patient Disposition: Xfer LT Discharge Diagnosis: Esophageal ulceration Referrals: Apolinar Olmstead DO [Primary Care Provider] - 1 Week Discharge Medications: New omeprazole 40 mg capsule,delayed release(DR/EC) 40 mg PO DAILY Qty: 30 0RF sucralfate [Carafate] 100 mg/mL suspension 1 g PO TID 84 Days Qty: 2520 0RF Continued acetaminophen 325 mg Tablet 650 mg PO Q4H PRN (Reason: Pain) benztropine 0.5 mg Tablet 0.5 mg PO BID miconazole nitrate [Miconazorb AF] 2 % Powder 1 appl TOPICAL BID PRN (Reason: athlete's foot) haloperidol 1 mg Tablet 1 mg PO BID propranolol 10 mg Tablet 5 mg PO BID ascorbic acid (vitamin C) 500 mg Tablet 500 mg PO DAILY gemfibrozil 600 mg Tablet 600 mg PO BID metformin 1,000 mg Tablet 1,000 mg PO BID benztropine 1 mg Tablet 1 mg PO BID alum-mag hydroxide-simeth 200-200-20 mg/5 mL Suspension 30 ml PO Q4H PRN (Reason: Indigestion) insulin lispro [Humalog U-100 Insulin] 100 unit/mL Solution 0 sliding scale dose SUBCUT USEASDIRECTD Protocol: Insulin Correction Scale Less than or equal to 110 ---- Give (units): 0 111 to 150 Give (units): 0 151 to 200 Give (units): 4 201 to 250 Give (units): 6 251 to 300 Give (units): 8 301 to 350 Give (units): 10 Greater than 350 Give (units): 10 Call MD if Blood Glucose > : 350 simethicone 80 mg Tablet,Chewable 160 mg PO BID Levemir U-100 Insulin 100 unit/mL Solution 45 unit SUBCUT DAILY Minerin Creme Cream 1 appl TOPICAL BEDTIME Rx Instructions: For dry skin, do not apply between the toes rifaximin 550 mg Tablet 550 mg PO BID lactulose 10 gram/15 mL (15 mL) Solution 90 ml PO TID Farxiga 10 mg Tablet 10 mg PO DAILY Trulicity 1.5 mg/0.5 mL Pen Injector 1.5 mg SUBCUT FR bisacodyl 10 mg Suppository 10 mg [place] DAILY PRN (Reason: Constipation) Levemir FlexPen 100 unit/mL (3 mL) Insulin Pen 20 unit SUBCUT BEDTIME ferrous sulfate 324 mg (65 mg iron) Tablet,Delayed Release (Dr/Ec) 324 mg PO DAILY Senna Plus 8.6-50 mg Capsule 1 tab-cap PO BEDTIME sennosides [senna] 8.6 mg tablet 8.6 mg PO Q24H Qty: 30 0RF Discontinued aspirin 81 mg Tablet,Chewable 81 mg PO DAILY Qty: 0 0RF Discharge Orders: Discharge Order (Routine); Ordered 12/22/22 Ordered By: Apolinar Olmstead Diet: Advance to usual diet Activity on Discharge: As tolerated Stand Alone Forms: Patient Portal Discharge page Care Plan Goals: Will change Prilosec to 40 mg daily; add Carafate slurry 1 g p.o. t.i.d. times 12 weeks Health Concerns: Will give iron 325 with vitamin-C 500 mg daily. Follow CBC 1 week Plan of Treatment: Only changes in med regimen as above; resume all previous medications and treatments as per [facility] Assessment: See discharge summary
--- NOTE | 2022-12-22 13:23 | MHC.CM.PN ---
PLAN IS RETURN TO [facility] TODAY VIA [facility]. UNIT AND RN AWARE
--- NOTE | 2022-12-22 14:28 | MHC.SLORD ---
Speech Language Pathology Order Status: Pt has hx of Modified Barium Swallow (MBS) done on 12/24/2020 at [facility]; recommended NPO. Per [facility] paperwork, pt on minced and moist solids, mildly thick liquids, and crushed meds w/ cueing to take time and sip liquids slowly. Per MD, [employer]IMARY [employer] evaluation to be deferred.
--- NOTE | 2022-12-22 14:56 | HO.POSTANES ---
Post Anesthesia Evaluation Post Anesthesia Evaluation Date of Service: 12/22/22 Vital Signs: Vital Signs Temp Pulse Resp BP Pulse Ox O2 Del Method 12/22/22 13:43 Room Air 12/22/22 08:35 96.9 F 100 20 141/61 H 99 Room Air Anesthesia: Monitored Mental Status: Awake Pain Control: Satisfactory Nausea/Vomiting: None Hydration: Adequate Anesthesia-Related Issues: No Anes. Related Issues
[2022-12-22 15:38] VITALS: BP 113/60; PULSE 97; RESP 20; TEMP 36; O2SAT 99
[2022-12-22 16:23] LABS: Glucose, Whole Blood 155 mg/dL (60-115)
== END 2022-12-22 16:51 | DRG 242 ==
LOC: HO.ED 13:05 → HO.EDOVER 13:16 → HO.S3 19:21
PROVIDERS: Internal Medicine; Internal Medicine Gastroenterology; Admitting Provider Nurse Practitioner Acute Care; Emergency Provider Emergency Medicine; PCP Hospitalist; Visit Provider Hospitalist
PROC: 0DJ08ZZ Inspection of Upper Intestinal Tract, Via Natural or Artificial Opening Endoscopic (ICD-10-PCS; CPT 43235; principal; 2022-12-21 12:50)
DX: K22.11 Ulcer of esophagus with bleeding (principal); E43 Unspecified severe protein-calorie malnutrition; E11.649 Type 2 diabetes mellitus with hypoglycemia without coma; G93.1 Anoxic brain damage, not elsewhere classified; E87.1 Hypo-osmolality and hyponatremia; E86.1 Hypovolemia; K44.9 Diaphragmatic hernia without obstruction or gangrene; E78.5 Hyperlipidemia, unspecified; Z68.1 Body mass index [BMI] 19.9 or less, adult; Z79.4 Long term (current) use of insulin; Z87.891 Personal history of nicotine dependence; Z79.82 Long term (current) use of aspirin; Z79.84 Long term (current) use of oral hypoglycemic drugs; Z79.899 Other long term (current) drug therapy
CPT/HCPCS: 36415; 80048; 80053; 81001; 82272; 82947; 83540; 83735; 85014; 85018; 85025; 85610; 86850; 86900; 86901; 86920; 86923; 99285; J1200; P9016

== ENCOUNTER → 2022-12-20 13:10 | Outpatient (BNV) | payer MEDICAID, SELFPAY | PROVIDERS: Admitting Provider Nurse Practitioner Acute Care; Emergency Provider Emergency Medicine; Visit Provider Nurse Practitioner Acute Care | DX: D64.9 Anemia, unspecified (principal); K22.10 Ulcer of esophagus without bleeding; G93.1 Anoxic brain damage, not elsewhere classified | CPT/HCPCS: 99223; 99232; 99239 ==